=== PATIENT | male | born 1930 ===

== ENCOUNTER 2017-02-22 08:54 | Inpatient (IN) | payer MEDICARE, OTHER ==
[2017-02-22 10:58] LABS: BASO % 0.2 % (0.0-2.0); EOS % 0.1 % (0.0-4.0); HEMATOCRIT 36.2 % (35.0-51.0); LYMPH # 0.8 K/uL (1.0-4.3); LYMPH % 6.3 % (20.0-40.0); MEAN CELL VOLUME 97.2 fL (80.0-94.0); MEAN CORPUSCULAR HGB CONC 32.9 g/dL (33.0-37.0); MEAN PLATELET VOLUME 9.2 fL (7.2-11.7); MONO # 1.4 K/uL (0.0-0.8); MONO % 11.7 % (0.0-10.0); PLATELET COUNT 240 K/uL (130-400); RED CELL DISTRIBUTION WIDTH 15.7 % (11.5-14.5); WHITE BLOOD COUNT 12.1 K/uL (4.8-10.8)
[2017-02-22 11:06] LABS: RBC URINE 50 /hpf (0-3); URINE BACTERIA RARE (<OCC); URINE BILIRUBIN NEGATIVE (NEGATIVE); URINE BLOOD 3+ (NEGATIVE); URINE COLOR Amber (YELLOW); URINE GLUCOSE (UA) NORMAL (Normal); URINE KETONE NEGATIVE (NEGATIVE); URINE LEUKOCYTE ESTERASE NEG Leu/uL (Negative); URINE PROTEIN 2+ mg/dL (NEGATIVE); URINE UROBILINOGEN NORMAL mg/dL (0.2-1.0); WBC URINE 14 /hpf (0-5)
[2017-02-22 11:07] LABS: POTASSIUM 3.5 mmol/L (3.6-5.2)
[2017-02-22 11:09] LABS: BILIRUBIN,TOTAL 1.1 mg/dL (0.2-1.3)
[2017-02-22 11:10] LABS: CALCIUM 8.1 mg/dl (8.6-10.4); TOTAL PROTEIN 7.4 g/dL (6.3-8.3)
[2017-02-22 11:18] LABS: NEUTROPHIL 85 % (50-75); TOTAL CELLS COUNTED 100
--- NOTE | 2017-02-22 11:44 | C.PDOC ---
History Of Present Illness 86 year old male presents to the ED with complaints of urine retention since yesterday. Patient states he has urinary problems and is taking something prescribed by his doctor. He was seen by his Urologist recently but does not remember his name. Denies abdominal pain, fever, chills, or any other complaints at this time. Chief Complaint (Nursing): Male Genitourinary History Per: Patient History/Exam Limitations: no limitations Onset/Duration Of Symptoms: Days Current Symptoms Are (Timing): Still Present Severity: Mild Associated Symptoms: Urinary Symptoms. denies: Fever, Chills, Vomiting, Diarrhea Past Medical History Reviewed: Historical Data, Nursing Documentation, Vital Signs Vital Signs: Last Vital Signs Temp 98.3 F 02/22/17 13:00 Pulse 57 L 02/22/17 13:00 Resp 20 02/22/17 13:00 BP 155/73 H 02/22/17 13:00 Pulse Ox 95 02/22/17 13:00 - Medical History PMH: HTN Surgical History: Cholecystectomy, Coronary Stent Family History: States: Unknown Family Hx - Social History Hx Tobacco Use: Yes Hx Alcohol Use: No Hx Substance Use: No - Immunization History Hx Tetanus Toxoid Vaccination: No Hx Influenza Vaccination: Yes Hx Pneumococcal Vaccination: No Review Of Systems Except As Marked, All Systems Reviewed And Found Negative. Constitutional: Negative for: Fever, Chills Gastrointestinal: Negative for: Vomiting, Abdominal Pain Genitourinary: Positive for: Other (+Urine retention) Musculoskeletal: Negative for: Back Pain Neurological: Negative for: Weakness, Numbness Physical Exam - Physical Exam Appears: Non-toxic, Other (+Uncomfortable) Skin: Normal Color, Warm, Dry Head: Atraumatic, Normacephalic Eye(s): bilateral: Normal Inspection Oral Mucosa: Moist Chest: Symmetrical, No Deformity Cardiovascular: Rhythm Regular, No Murmur Respiratory: Normal Breath Sounds, No Accessory Muscle Use Gastrointestinal/Abdominal: Soft, No Tenderness, Distention (+Distended bladder) , No Guarding, No Rebound Extremity: Normal ROM, No Deformity Neurological/Psych: Oriented x3, Normal Speech, Normal Cognition ED Course And Treatment - Laboratory Results Result Diagrams: 02/22/17 10:51 02/22/17 10:51 O2 Sat by Pulse Oximetry: 99 (Room air) Pulse Ox Interpretation: Normal Progress Note: Blood work and Urinalysis ordered and reviewed. IV fluids given. Fuller placed with 550 cc of urine output. Patient notes his symptoms improved after. 11:35- Case discussed with Dr. Buenrostro who wants to admit the patient for obstructive uropathy. Patient's creatinine has increased compared to his previous visit with Dr. Buenrostro and he is requesting to hydrate the patient. 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 - Scribe Statement The provider has reviewed the documentation as recorded by the Scribe Jing Soares. All medical record entries made by the Scribe were at my direction and personally dictated by me. I have reviewed the chart and agree that the record accurately reflects my personal performance of the history, physical exam, medical decision making, and the department course for this patient. I have also personally directed, reviewed, and agree with the discharge instructions and disposition. Decision To Admit - Pt Status Changed To: Hospital Disposition Of: Observation - . Bed Request Type: Regular Admitting Physician: Jeanne Buenrostro Patient Diagnosis: Injury of kidney
[2017-02-22] MEDS ORDERED: Sodium Chloride 0.9% 1,000 ML IV ONE (11:45)
[2017-02-22] MEDS ORDERED: Sodium Chloride 0.9% 1,000 ML ONE (11:56)
[2017-02-22] MEDS: Sodium Chloride 0.9% 1,000 ML IV SCH (14:30)
[2017-02-22] MEDS ORDERED: Potassium Chloride 20 mEq ER Tab PO STA (16:12)
--- NOTE | 2017-02-23 01:30 | PCM.URO ---
Urology Progress Note - Objective Intake & Output: Intake & Output 02/22/17 02/22/17 02/23/17 06:59 18:59 06:59 Intake Total 475 Output Total 600 600 Balance -600 -125 Intake: Intake, IV Amount 225 Right Forearm 225 Oral 250 Output: Urine 600 600 Urethral (Fuller) 600 Other: Voiding Method Indwelling Catheter Vital Signs: Vital Signs - 24 hr 02/22/17 02/22/17 02/22/17 11:57 13:00 15:02 Temperature 98 F 98.3 F 97.6 F Pulse Rate 56 L 57 L 56 L Respiratory 18 20 19 Rate Blood Pressure 151/96 H 155/73 H 152/65 H O2 Sat by Pulse 97 95 94 L Oximetry 02/22/17 02/22/17 02/22/17 16:27 17:13 17:42 Temperature Pulse Rate Respiratory 20 Rate Blood Pressure 154/90 H O2 Sat by Pulse 99 Oximetry 02/22/17 02/22/17 02/22/17 19:46 21:15 23:00 Temperature 98.3 F 98.9 F Pulse Rate 56 L 59 L 59 L Respiratory 20 20 Rate Blood Pressure 169/73 H 129/58 L O2 Sat by Pulse 94 L 95 Oximetry
[2017-02-23] MEDS: Sodium Chloride 0.9% 1,000 ML IV SCH ×2 (03:30→17:40)
[2017-02-23 08:13] LABS: BASO % 0.4 % (0.0-2.0); EOS # 0.1 K/uL (0.0-0.7); EOS % 0.9 % (0.0-4.0); HEMATOCRIT 35.2 % (35.0-51.0); LYMPH # 1.1 K/uL (1.0-4.3); LYMPH % 10.7 % (20.0-40.0); MEAN CELL VOLUME 97.8 fL (80.0-94.0); MEAN CORPUSCULAR HEMOGLOBIN 32.2 pg (27.0-31.0); MEAN CORPUSCULAR HGB CONC 32.9 g/dL (33.0-37.0); MEAN PLATELET VOLUME 9.9 fL (7.2-11.7); MONO # 1.3 K/uL (0.0-0.8); MONO % 12.9 % (0.0-10.0); RED CELL DISTRIBUTION WIDTH 15.7 % (11.5-14.5); WHITE BLOOD COUNT 10.4 K/uL (4.8-10.8)
[2017-02-23 08:19] LABS: CHLORIDE 104 mmol/L (98-107); POTASSIUM 3.8 mmol/L (3.6-5.2); SODIUM 141 mmol/L (132-148)
[2017-02-23 08:22] LABS: CARBON DIOXIDE 26 mmol/L (22-30); GFR AFRICAN-AMERICAN > 60
[2017-02-23 08:23] LABS: BLOOD UREA NITROGEN 18 mg/dL (9-20); CALCIUM 7.9 mg/dl (8.6-10.4); GLUCOSE,RANDOM 85 mg/dL (75-110)
--- NOTE | 2017-02-23 10:20 | US ---
PROCEDURE: Ultrasound of the Kidneys HISTORY: retention COMPARISON: Comparison is made to the previous CT of the abdomen dated 02/24/2014 TECHNIQUE: Sonogram of the kidneys. FINDINGS: RIGHT KIDNEY: Measures: 10.1 x 4.5 x 4.7 cm. Normal in size, contour and echogenicity. No stone, solid mass lesion or hydronephrosis visualized. LEFT KIDNEY: Measures: 9.7 x 5.5 x 4.1 cm. Normal in size, contour and echogenicity. Minimal fullness seen in the left kidney collecting system. No stone, solid mass lesion or hydronephrosis visualized. OTHER FINDINGS: None. IMPRESSION: Mild fullness in the collecting system of the left kidney noted. Otherwise unremarkable ultrasound examination of the kidneys.
--- NOTE | 2017-02-23 20:43 | PN ---
DATE: 02/23/2017 SUBJECTIVE: The patient is seen today 02/23/2017. He is not in any cardiopulmonary distress. The p atient was complaining of lower back pain. PHYSICAL EXAMINATION: VITAL SIGNS: Blood pressure 149/78, temperature 99.0, respiratory rate 20, and pulse is 56. HEENT: Pupils equal, reactive to light. Normal-appearing mucosa of the conjunctivae, oropharyngeal, and nasal membrane mucosa. NECK: Supple, no JVD, no carotid bruit, no lymph node, no thyromegaly. CHEST AND LUNGS: Bilateral symmetrical expansion. Good air exchange. No rales, no rhonchi. CARDIOVASCULAR: PMI not localized. S1, S2. No additional sounds. ABDOMEN: Normoactive bowel sounds, no tenderness, no organomegaly, no masses. EXTREMITIES: No cyanosis, no clubbing, no edema. CENTRAL NERVOUS SYSTEM: Alert, awake, oriented x 2. No neurological deficits could be appreciated. ASSESSMENT: 1. Obstructive uropathy with acute kidney injury. 2. Acute urinary retention. 3. Hypertension. 4. Degenerative spine disease. PLAN: 1. Pain management for the back. 2. Continue the Fuller catheter. Follow up urology recommendations. 3. Continue IV fluids. [facility] Sofía Buenrostro MD cc: 167 TT: 02/23/2017 20:42:17 Confirmation # [id number] Dictation # [id number]
--- NOTE | 2017-02-23 20:51 | HP ---
The patient is an 86-year-old male with history of multiple medical problems, presented [facility] with lower abdominal pain and inability to urinate for 2 days. The patient had a Fuller catheter placed and drained more than 600 mL. The patient was found also to have elevated serum cre atinine to 1.6. Baseline serum creatinine was 1.1 in the last blood tests done on 09/2016. The harshil ent denied to have any similar symptoms before. The patient was noticed to have significantly elevated PSA, and he was being followed by Dr. Doyle , a urologist. The patient refused any cystoscopy or biopsy of the prostate that was offered by Dr. Doyle before. There are no symptoms of fever or other review of systems is negative. ALLERGY: No known allergy. HOME MEDICATIONS: Metoprolol 25 mg twice a day, Flexeril 5 mg daily, Proscar 5 mg daily, Diovan 160 mg daily, Crestor 5 mg daily, Plavix 75 mg daily, Pepcid 20 mg daily, Norvasc 10 mg daily. PAST MEDICAL HISTORY: Includes hypertension, degenerative spine disease, chronic obstructive pulmona ry disease status post endovascular procedure for ascending aortic aneurysm. SOCIAL HISTORY: Positive smoker more than 50 years. No ETOH or substance abuse history. FAMILY HISTORY: Not contributory. PHYSICAL EXAMINATION: The patient was in bed, comfortable, not in any cardiopulmonary distress after replacing the Fuller ca theter. Blood pressure was 154/90, temperature 98.3, respiratory rate 20, and pulse 56. HEENT: Pupils equal, reactive to light. Normal-appearing mucosa of the conjunctivae, oropharyngeal, and nasal membrane mucosa. NECK: Supple, no JVD, no carotid bruit, no lymph node, no thyromegaly. CHEST AND LUNGS: Bilateral symmetrical expansion, good air exchange. No rales, no rhonchi. CARDIOVASCULAR SYSTEM: PMI not localized. S1, S2. No additional sounds. ABDOMEN: Normoactive bowel sounds, no tenderness, no organomegaly, no masses. EXTREMITIES: No cyanosis, no clubbing, no edema. CENTRAL NERVOUS SYSTEM: Alert, awake, oriented x 2. No neurological deficits could be appreciated. ASSESSMENT: 1. Urinary retention. 2. Obstructive uropathy. 3. Acute kidney injury. 4. Hypertension. 5. Degenerative spine disease. PLAN: Continue IV fluid and urology consult, and will follow recommendations, and resume the patient 's home medications. Alex Sofía Buenrostro MD cc: 167 TT: 02/23/2017 20:50:38 jn
[2017-02-24] MEDS: Sodium Chloride 0.9% 1,000 ML IV SCH ×2 (06:00→20:00)
[2017-02-24] MEDS ORDERED: Pneumococcal 23-Valent Vaccine IM ONE (10:00)
[2017-02-25] MEDS: Sodium Chloride 0.9% 1,000 ML IV SCH (11:04)
--- NOTE | 2017-02-25 18:48 | PN ---
DATE: 02/25/2017 SUBJECTIVE: The patient is seen today, 02/25/2017. He is having urinary catheter and Dr. Bridget reyes heduled him for cystoscopy. PHYSICAL EXAMINATION: VITAL SIGNS: Blood pressure is 146/84, temperature 98.7, respiratory rate 20, and pulse is 78. HEENT: Pupils equal, reactive to light. Normal-appearing mucosa of the conjunctivae, oropharyngeal and nasal membrane mucosa. NECK: Supple, no JVD, no carotid bruit, no lymph node, no thyromegaly. CHEST AND LUNGS: Bilateral symmetrical expansion, good air exchange, no rales, no rhonchi. CARDIOVASCULAR: PMI not localized. S1, S2. No additional sounds. ABDOMEN: Normoactive bowel sounds, no tenderness, no organomegaly, no masses. EXTREMITIES: No cyanosis, no clubbing, no edema. CENTRAL NERVOUS SYSTEM: Alert, awake, oriented x 2. No neurological deficits could be appreciated. ASSESSMENT: 1. Urinary retention with enlarged prostate, possible and to rule out cancer of prostate. 2. Hyper tension. 3. Degenerative spine disease. PLAN: We will do a chest x-ray and will do a cardiology consultation for cardiac clearance prior to procedure. Discussed the patient's condition with this patient's son, Asad, at the bedside and he is agreeable for the plans. Explained also to the patient who expressed understanding of the curren t plan of treatment. Alex Sofía Buenrostro MD cc: 167 TT: 02/25/2017 18:48:50 Confirmation # [id number] Dictation # [id number] mn
--- NOTE | 2017-02-25 20:46 | CP.PCM.CON ---
History of Present Illness - History of Present Illness History of Present Illness: Reason For Consultation: Pre Op cardiac risk assessment HPI: (Patient is a poor Historian. The History obtained from Son) 86 Male with Hx of CAD coronary stent, AAA s/p Endograft, HTN, Hyperlipidemia, COPD and active tobacco use admitted for cystoscopy. Patient activity limited to elicit symptoms Patient did not have any cardiac work up done recently. Recommend cardiovascular work up for the risk assessment unless surgery is an emergency. Stress test, ECHO and Carotid duplex ordered. Recommend wait for the results Thank you Past Patient History - Infectious Disease Hx of Infectious Diseases: None - Past Medical History & Family History Past Medical History?: Yes - Past Social History Smoking Status: Current Some Days Smoker - CARDIAC Hx Cardiac Disorders: Yes (CAD Coronary stent) Hx Hypertension: Yes - NEUROLOGICAL HX Cerebrovascular Accident: Yes - HEENT Other/Comment: WEAR EYEGLASSES FOR READING - RENAL Hx Chronic Kidney Disease: No - ENDOCRINE/METABOLIC Hx Endocrine Disorders: No - HEMATOLOGICAL/ONCOLOGICAL Hx Blood Disorders: No - INTEGUMENTARY Hx Dermatological Problems: No - MUSCULOSKELETAL/RHEUMATOLOGICAL Hx Back Pain: Yes Hx Falls: No Hx Unsteady Gait: Yes - GASTROINTESTINAL Hx Gastrointestinal Disorders: No - GENITOURINARY/GYNECOLOGICAL Hx Genitourinary Disorders: No - PSYCHIATRIC Hx Substance Use: No - SURGICAL HISTORY Hx Cholecystectomy: Yes Hx Coronary Stent: Yes - ANESTHESIA Hx Anesthesia: No Meds Allergies/Adverse Reactions: Allergies Allergy/AdvReac Type Severity Reaction Status Date / Time No Known Allergies Allergy Verified 02/22/17 09:05 - Medications Medications: Current Medications Acetaminophen (Tylenol 325mg Tab) 650 mg PO Q6 PRN PRN Reason: Pain, Mild (1-3) Last Admin: 02/23/17 20:23 Dose: 650 mg Amlodipine Besylate (Norvasc) 10 mg PO DAILY [facility] Last Admin: 02/25/17 10:50 Dose: 10 mg Docusate Sodium (Colace) 200 mg PO HS [facility] Last Admin: 02/24/17 21:27 Dose: 200 mg Famotidine (Pepcid) 20 mg PO DAILY [facility] Last Admin: 02/25/17 11:05 Dose: Not Given Finasteride (Proscar) 5 mg PO DAILY [facility] Last Admin: 02/25/17 11:05 Dose: Not Given Losartan Potassium (Cozaar) 50 mg PO DAILY [facility] Last Admin: 02/25/17 10:50 Dose: 50 mg Metoprolol Tartrate (Lopressor) 25 mg PO BID [facility] Last Admin: 02/25/17 18:00 Dose: 25 mg Rosuvastatin Calcium (Crestor) 5 mg PO HS [facility] Last Admin: 02/24/17 21:27 Dose: 5 mg Results - Vital Signs Recent Vital Signs: Last Vital Signs Temp 98.7 F 02/25/17 14:00 Pulse 125 H 02/25/17 14:00 Resp 20 02/25/17 14:00 BP 146/84 02/25/17 18:00 Pulse Ox 95 02/25/17 14:00 - Labs Result Diagrams: 02/23/17 08:03 02/23/17 08:03
[2017-02-25 20:48] LABS: ESTIM. PROBABILITY CANCER >50 Percent (()); TOTAL PSA 119.8 ng/mL (<=4.0)
[2017-02-26 07:24] LABS: BASO % 0.4 % (0.0-2.0); EOS # 0.1 K/uL (0.0-0.7); EOS % 1.5 % (0.0-4.0); HEMATOCRIT 33.5 % (35.0-51.0); LYMPH # 1.1 K/uL (1.0-4.3); LYMPH % 13.4 % (20.0-40.0); MEAN CELL VOLUME 97.9 fL (80.0-94.0); MEAN CORPUSCULAR HEMOGLOBIN 32.3 pg (27.0-31.0); MEAN PLATELET VOLUME 10.1 fL (7.2-11.7); MONO # 1.3 K/uL (0.0-0.8); WHITE BLOOD COUNT 8.2 K/uL (4.8-10.8)
[2017-02-26 07:25] LABS: CHLORIDE 102 mmol/L (98-107); POTASSIUM 3.2 mmol/L (3.6-5.2); SODIUM 142 mmol/L (132-148)
[2017-02-26 07:28] LABS: BLOOD UREA NITROGEN 15 mg/dL (9-20); CARBON DIOXIDE 26 mmol/L (22-30); GFR AFRICAN-AMERICAN > 60; GLUCOSE,RANDOM 88 mg/dL (75-110)
[2017-02-26 07:29] LABS: CALCIUM 7.5 mg/dl (8.6-10.4)
--- NOTE | 2017-02-26 09:22 | RAD ---
HISTORY: pre-op COMPARISON: Comparison is made to the previous CT dated 01/26/2015 TECHNIQUE: Chest PA and lateral FINDINGS: LUNGS: No evidence of focal infiltrate or consolidation in the lungs. PLEURA: No significant pleural effusion identified. No pneumothorax apparent. CARDIOVASCULAR: [id number] cardiomegaly is noted. There is endovascular stent at the left lower mediastinal overlying the cardiac silhouette and extending to the epigastric region consistent with descending thoracic aorta stent due to aneurysm. OSSEOUS STRUCTURES: No significant abnormalities. VISUALIZED UPPER ABDOMEN: Normal. OTHER FINDINGS: None. IMPRESSION: No evidence of acute pulmonary disease. Descending thoracic aorta aneurysm and intra vascular stent.
[2017-02-26] MEDS ORDERED: Potassium Chloride 20 mEq 100 ML IVPB ONE (13:30)
--- NOTE | 2017-02-26 16:01 | VASCLAB ---
PROCEDURE: HISTORY: Pre Op COMPARISON: None available. TECHNIQUE: Grayscale and duplex Doppler evaluation of the cervical carotid and vertebral arteries were performed. The common carotid, carotid bifurcations and cervical Internal Carotid Artery (ICA) and proximal External Carotid Artery (ECA) were evaluated. The vertebral arteries were evaluated for gross patency and flow direction. Report prepared by Yannick Figueroa, BS, RVT FINDINGS: RIGHT CAROTID ARTERIES: 1. Common Carotid Artery: No significant focal plaque formation of the right common carotid artery. Maximum Peak Systolic velocity: 56 cm/sec: End-diastolic velocity 10 cm/sec. 2. Carotid Bifurcation: plaque formation. Maximum Peak Systolic velocity: 54 cm/sec: End-diastolic velocity 9 cm/sec. 3. Internal Carotid Artery: Plaque description: 3.1. Proximal Segment: Peak systolic velocity 57 cm/sec: End-diastolic velocity 12 cm/sec - % stenosis 0-15% 3.2. Middle Segment: Peak systolic velocity 87 cm/sec: End-diastolic velocity 18 cm/sec - % stenosis 0-15% 3.3. Distal Segment: Peak systolic velocity 59 cm/sec: End-diastolic velocity 16 cm/sec - % stenosis 0-15% 4. External Carotid Artery: No significant focal plaque formation. Peak systolic velocity 134 cm/sec 5. ICA/CCA Ratio: 139 LEFT CAROTID ARTERIES: 1. Common Carotid Artery: No significant focal plaque formation of the left common carotid artery. Maximum Peak Systolic velocity: 68 cm/sec: End-diastolic velocity 7 cm/sec. 2. Carotid Bifurcation: Calcific plaque formation. Maximum Peak Systolic velocity: 53 cm/sec: End-diastolic velocity 11 cm/sec. 3. Internal Carotid Artery: Plaque description: 3.1. Proximal Segment: Peak systolic velocity 111 cm/sec: End-diastolic velocity 24 cm/sec - % stenosis 0-15% 3.2. Middle Segment: Peak systolic velocity 93 cm/sec: End-diastolic velocity 11 cm/sec - % stenosis 0-15% 3.3. Distal Segment: Peak systolic velocity 64 cm/sec: End-diastolic velocity 7 cm/sec - % stenosis 0-15% 4. External Carotid Artery: No significant focal plaque formation. Peak systolic velocity 106 cm/sec 5. ICA/CCA Ratio: 1.6 VERTEBRAL ARTERIES: 1. Right Vertebral Artery: The right vertebral artery flow direction is antegrade. 2. Left Vertebral Artery: The left vertebral artery flow direction is antegrade. OTHER FINDINGS: 1. Right Brachial Blood pressure: 156 mmHg. 2. Left Brachial Blood pressure: 150 mmHg. IMPRESSION: RIGHT: Duplex scan does not suggest hemodynamically significant stenosis of the right extracranial carotid arteries. LEFT: Duplex scan does not suggest hemodynamically significant stenosis of the left extracranial carotid arteries.
--- NOTE | 2017-02-26 16:31 | PCM.URO ---
Urology Progress Note - Objective Lab Results Last 24 Hours: Laboratory Results - last 24 hr 02/26/17 07:05 WBC 8.2 RBC 3.42 L Hgb 11.0 L Hct 33.5 L MCV 97.9 H MCH 32.3 H MCHC 33.0 RDW 15.0 H Plt Count 209 MPV 10.1 Neut % (Auto) 68.7 Lymph % (Auto) 13.4 L [place] % (Auto) 16.0 H Eos % (Auto) 1.5 Baso % (Auto) 0.4 Neut # 5.7 Lymph # 1.1 [place] # 1.3 H Eos # 0.1 Baso # 0.0 Sodium 142 Potassium 3.2 L Chloride 102 Carbon Dioxide 26 Anion Gap 17 BUN 15 Creatinine 1.0 Est GFR ( Amer) > 60 Est GFR (Non-Af Amer) > 60 Random Glucose 88 Calcium 7.5 L Intake & Output: Intake & Output 02/25/17 02/26/17 02/26/17 18:59 06:59 18:59 Intake Total 600 800 Output Total 1400 500 Balance -800 300 Intake: Intake, IV Amount 600 600 Right Forearm 600 600 Oral 200 Output: Urine 1400 500 Urethral (Fuller) 1400 500 Other: # Bowel Movements 0 Vital Signs: Vital Signs - 24 hr 02/25/17 02/25/17 02/25/17 18:00 23:00 23:30 Temperature 98.8 F Pulse Rate 81 81 Respiratory 18 Rate Blood Pressure 146/84 136/78 O2 Sat by Pulse 97 Oximetry 02/26/17 02/26/17 06:00 07:31 Temperature 98.2 F 98.6 F Pulse Rate 68 Respiratory 20 Rate Blood Pressure 154/69 H O2 Sat by Pulse 98 Oximetry
--- NOTE | 2017-02-26 17:35 | CARD ---
APPROVED REPORT Protocol: PHARMACOLOGICAL Test Type: LEXISCAN Test Indications: CP Target HR: 135 bpm Resting ECG: normal Resting Heart Rate: 57 bpm Resting Blood Pressure: 128/80mmHg submaximum (85%): 115 bpm TEST SUMMARY [id number]:02..1.055/.0. PREINFSNHYPERV.01:130.00.01.115223/80.0. INFUSIONDOSE 100:320.00.01.718576/80.0. IRNCKMLWF69:120.00.01.073/.0. PROCEDURE Pharmacologic stress testing was performed using 0.4mg per 5ml of regadenoson given intravenously over 7-10 seconds. POST EXERCISE Reason for Termination: Lexiscan protocol completed Target HR: No Max HR: 57 bpm 57% of Maximum Predicted HR: 135 bpm Exercise duration: 00:31 min:sec, 0 Stage Exercise capacity: 1.0METs Max Blood Pressure: 128/80mmHg Blood Pressure response to exercise: normal resting BP - appropriate response Heart Rate response to exercise: appropriate Chest Pain: No, none Angina index: 0 Arrhythmia: No, none ST Change: No, none Deviation: 0 mm INTERPRETATION Stress EKG Conclusion: Nuclear report to follow EXAM: Myocardial Perfusion REST/STRESS Imaging Protocol The imaging protocol used to acquire images was Rest Tc-99m/stress Tc-99m 1 day Rest Spect myocardial perfusion imaging was performed in supine position 45 minutes following the injection of 13.1 mCi of Tc-99 Myoview. Gated Stress Spect was performed 45 minutes after intravenous 30.4 mCi Tc-99 Myoview injection. The images were gated to evaluate regional wall motion and calculate ventricular ejection fraction.Images were reconstructed using backfilter projection method in short horizontal and verticle long axis. Spect slices were generated. RESTING DATA SYB055.65daPB2.80L/min ESV50.00mlMyocardial Mcaj336.00g Av. Heart Rate59.00bpm EF62.00% STRESS DATA MPC081.78nlBP6.20L/min ESV49.00mlMyocardial Jkuh373.00g EF62.00% Regional WT score at stress:0.00 Regional WM score at stress:0.00 Summed WT score at stress:0.00 Av. Heart Rate64.00bpmSummed WM score at stress:7.00 LV Perf. Quant 17 Seg. SSS0.00 17 Seg. SRS0.00 17 Seg. SDS0.00 Stress Defect Extent (% LAD)0.00Rest Defect Extent (% LAD)0.00Rev. Defect Extent (% LAD)0.00 Stress Defect Extent (% LCX)0.00Rest Defect Extent (% LCX)0.00Rev. Defect Extent (% LCX)0.00 Stress Defect Extent (% RCA)0.00Rest Defect Extent (% RCA)0.00Rev. Defect Extent (% RCA)0.00 Stress Defect Extent (% TOMA)0.00Rest Defect Extent (% TOMA)0.00Rev. Defect Extent (% TOMA)0.00 Other Information Quality:Good IMPRESSION Normal Myocardial Perfusion exercise stress study Left Ventricle LV Size/Shape: The left ventricle is normal size. LV Function:Left ventricle systolic function is normal. The Ejection Fraction is 60-65%. Metabolism/Perfusion There are no perfusion/metabolism defects. Conclusion 1. Normal Lexiscan nuclear stress test. Normal EF.
--- NOTE | 2017-02-26 17:46 | CP.PCM.PN ---
Subjective - Date & Time of Evaluation Date of Evaluation: 02/26/17 Time of Evaluation: 17:42 - Subjective Subjective: Patient seen and evaluated Stable vital signs Stress Test: Normal ECHO: Normal EF Carotids: Mild disease Patient denies cardiac symptoms Basing on over all tests and clinical story this patient assessed as low to intermediate risk for cardiac events for urological procedures under general anaesthesia. If benefit outweighs the risk recommend to proceed with the surgery Will follow Thank you Objective - Vital Signs/Intake and Output Vital Signs (last 24 hours): Temp Pulse Resp BP Pulse Ox 98.6 F 68 20 154/69 H 98 02/26/17 07:31 02/26/17 07:31 02/26/17 07:31 02/26/17 07:31 02/26/17 07:31 Intake and Output: 02/26/17 02/26/17 06:59 18:59 Intake Total 800 600 Output Total 500 700 Balance 300 -100 - Medications Medications: Current Medications Acetaminophen (Tylenol 325mg Tab) 650 mg PO Q6 PRN PRN Reason: Pain, Mild (1-3) Last Admin: 02/23/17 20:23 Dose: 650 mg Amlodipine Besylate (Norvasc) 10 mg PO DAILY [facility] Last Admin: 02/26/17 10:51 Dose: Not Given Docusate Sodium (Colace) 200 mg PO [facility] Last Admin: 02/25/17 21:18 Dose: 200 mg Famotidine (Pepcid) 20 mg PO DAILY [facility] Last Admin: 02/26/17 10:50 Dose: Not Given Finasteride (Proscar) 5 mg PO DAILY [facility] Last Admin: 02/26/17 10:49 Dose: Not Given Losartan Potassium (Cozaar) 50 mg PO DAILY [facility] Last Admin: 02/26/17 10:50 Dose: Not Given Metoprolol Tartrate (Lopressor) 25 mg PO BID [facility] Last Admin: 02/26/17 10:50 Dose: Not Given Rosuvastatin Calcium (Crestor) 5 mg PO HS [facility] Last Admin: 02/25/17 21:18 Dose: 5 mg - Labs Labs: 02/26/17 07:05 02/26/17 07:05
--- NOTE | 2017-02-26 22:09 | PN ---
DATE: 02/26/2017 The patient is seen today, 02/26/2017,. Blood pressure of 154/68, temperature 98.6, respiratory rate 20, and pulse 68. HEENT: Pupils equal, reactive to light. Normal-appearing mucosa of the conjunctivae, oropharyngeal, and nasal membrane mucosa. NECK: Supple, no JVD, no carotid bruit, no lymph node, no thyromegaly. CHEST AND LUNGS: Bilateral symmetrical expansion , no rales , no ronchi. CARDIOVASCULAR: PMI not localized, S1, S2. No additional sounds. ABDOMEN: Normoactive bowel sounds, no tenderness, no organomegaly, no masses. EXTREMITIES: No cyanosis, no clubbing, no edema. CENTRAL NERVOUS SYSTEM: Alert, awake, oriented x 2. No neurological deficits could be appreciated. The patient had a cardiology evaluation done by Dr. Garcia, and was cleared for cystoscopy. ASSESSMENT: 1. Urinary retention with elevated PSA to 119. 2. Obstructive uropathy which has resolved, and creatinine went down from 1.6 to 1.0. 3. Hypokalemia, with potassium 3.2. PLAN: We will supplement potassium. Continue current management, as per urology, and follow their recommendations. Alex Sofía Buenrostro MD cc: 167 TT: 02/26/2017 22:08:40 Confirmation # [id number] Dictation # [id number] MTDD
[2017-02-27 06:42] LABS: BASO % 0.1 % (0.0-2.0); EOS # 0.2 K/uL (0.0-0.7); EOS % 2.7 % (0.0-4.0); HEMATOCRIT 35.8 % (35.0-51.0); MEAN CORPUSCULAR HEMOGLOBIN 32.2 pg (27.0-31.0); MEAN CORPUSCULAR HGB CONC 33.2 g/dL (33.0-37.0); MEAN PLATELET VOLUME 9.9 fL (7.2-11.7); MONO # 1.2 K/uL (0.0-0.8); MONO % 14.7 % (0.0-10.0); RED CELL DISTRIBUTION WIDTH 14.7 % (11.5-14.5); WHITE BLOOD COUNT 8.4 K/uL (4.8-10.8)
[2017-02-27 06:45] LABS: INR 1.2
[2017-02-27 06:49] LABS: CHLORIDE 99 mmol/L (98-107); POTASSIUM 3.4 mmol/L (3.6-5.2); SODIUM 143 mmol/L (132-148)
[2017-02-27 06:52] LABS: BLOOD UREA NITROGEN 12 mg/dL (9-20); CALCIUM 7.6 mg/dl (8.6-10.4); CARBON DIOXIDE 26 mmol/L (22-30); GFR AFRICAN-AMERICAN > 60; GLUCOSE,RANDOM 91 mg/dL (75-110)
[2017-02-27] MEDS ORDERED: Potassium Chloride 20 mEq ER Tab PO ONE (18:00)
--- NOTE | 2017-02-27 19:17 | CARD ---
APPROVED REPORT EXAM: Two-dimensional and M-mode echocardiogram with Doppler and color Doppler. INDICATION CVA/TIA Dizziness and Vertigo Pre-Op Cardiac Disease: CAD M-Mode DIMENSIONS RVDd1.95 (2.1-3.2cm)Left Atrium (MM)3.61 (2.5-4.0cm) IVSd1.29 (0.7-1.1cm)Aortic Root3.91 (2.2-3.7cm) LVDd5.24 (4.0-5.6cm)Aortic Cusp Exc.1.48 (1.5-2.0cm) PWd1.33 (0.7-1.1cm)FS (%) 35 % LVDs3.39 (2.0-3.8cm)LVEF (%)64 (>50%) Aortic Valve AoV Peak Pfcbrqnk631.9cm/Redd Peak GR.11mmHgAI P 1/2 [id number] Mitral Valve MV E Wlvhovxi879.1cm/sMV A Uwlpjdso70.6cm/sE/A ratio1.2 TDI E/Lateral E'0.0E/Medial E'0.0 Tricuspid Valve TR Peak Dirwreky339tk/sTR Peak Gr.84xfGiDUKN97fbQp LEFT VENTRICLE The left ventricle is normal size. There is mild concentric left ventricular hypertrophy. Left ventricle systolic function is normal. The Ejection Fraction is 60-65%. There is normal LV segmental wall motion. The left ventricular diastolic function is normal. RIGHT VENTRICLE The right ventricle is normal size. There is normal right ventricular wall thickness. The right ventricular systolic function is normal. ATRIA The left atrium size is normal. The right atrium size is normal. The interatrial septum is intact with no evidence for an atrial septal defect. AORTIC VALVE The aortic valve is normal in structure. There is mild aortic regurgitation. There is no aortic valvular stenosis. There is no aortic valvular vegetation. MITRAL VALVE The mitral valve is normal in structure. There is no evidence of mitral valve prolapse. There is no mitral valve stenosis. Mitral regurgitation is mild. TRICUSPID VALVE The tricuspid valve is normal in structure. There is trace tricuspid regurgitation. Right ventricular systolic pressure is estimated at less than 30 mmHg. There is no pulmonary hypertension. PULMONIC VALVE The pulmonic valve is not well visualized. There is no pulmonic valvular regurgitation. GREAT VESSELS The aortic root is normal in size. PERICARDIAL EFFUSION There is no significant pericardial effusion.
--- NOTE | 2017-02-28 02:27 | PN ---
DATE: 02/27/2017 SUBJECTIVE: The patient is seen today, 02/27/2017. He is not in any cardiopulmonary distress. The patient has urinary retention and still has Fuller catheter. PHYSICAL EXAMINATION: VITAL SIGNS: Blood pressure 132/64, temperature 98.4, respiratory rate 20, and pulse 61. HEENT: Pupils equal, reactive to light. Normal-appearing mucosa of the conjunctivae, oropharyngeal and nasal membrane mucosa. NECK: Supple, no JVD, no carotid bruit, no lymph node, no thyromegaly. CHEST AND LUNGS: Bilateral symmetrical expansion. Good air exchange. No rales, rhonchi. CARDIOVASCULAR: S1, S2. No additional sounds. ABDOMEN: Normoactive bowel sounds, no tenderness, no organomegaly, no masses. EXTREMITIES: No cyanosis, no clubbing, no edema. CENTRAL NERVOUS SYSTEM: Alert, awake, oriented x 2. No neurological deficits could be appreciated. ASSESSMENT: 1. Urinary retention with increased of TSA to 130. 2. Hypertension. PLAN: The patient is seen for TURP by Dr. Gill. The patient was cleared by cardiology. We will continue current medications including beta paola and antihypertensive medications. Jeanne Buenrostro MD cc: 167 TT: 02/28/2017 02:27:15 Confirmation # [id number] Dictation # [id number] mn
[2017-02-28 06:50] LABS: CHLORIDE 103 mmol/L (98-107); POTASSIUM 3.7 mmol/L (3.6-5.2); SODIUM 141 mmol/L (132-148)
[2017-02-28 06:53] LABS: BLOOD UREA NITROGEN 15 mg/dL (9-20); CARBON DIOXIDE 25 mmol/L (22-30); GFR AFRICAN-AMERICAN > 60
[2017-02-28 06:54] LABS: GLUCOSE,RANDOM 90 mg/dL (75-110)
[2017-02-28] MEDS: guaiFENesin 100 mg/5 ml Syrup UD PO PRN (09:47)
[2017-02-28] MEDS ORDERED: Propofol 10 mg/ml Inj (20 ML) ONE (11:59)
[2017-02-28] MEDS ORDERED: Midazolam 2 MG/2 ML VIAL ONE (11:59)
[2017-02-28] MEDS ORDERED: Lactated Ringer's 1,000 ML IV ONE (12:00)
[2017-02-28] MEDS ORDERED: cefTRIAXone IV 1 gm in Dextros 50 ML IVPB ONE (12:09)
[2017-02-28] MEDS ORDERED: Lidocaine 2% Jelly (Uro-Jet) ONE (12:09)
[2017-02-28] MEDS ORDERED: Iohexol 240 (50 ml) ONE (12:09)
[2017-02-28] MEDS ORDERED: HYDROmorphone 0.5 mg/0.5 ml ISec IVP PRN (12:41)
--- NOTE | 2017-02-28 20:58 | PN ---
DATE: 02/28/2017 SUBJECTIVE: The patient is seen today 02/28/2017. He is not in any cardiopulmonary distress. The pat ient is postoperative. Status post TURP. PHYSICAL EXAMINATION: VITAL SIGNS: Blood pressure is 165/74, temperature 97.2, respiratory rate 16, and pulse 54. HEENT: Pupils equal, reactive to light. Normal-appearing mucosa of the conjunctivae, oropharyngeal and nasal membrane mucosa. NECK: Supple, no JVD, no carotid bruit, no lymph node, no thyromegaly. CHEST AND LUNGS: Bilateral symmetrical expansion, good air exchange, no rales, no rhonchi. CARDIOVASCULAR: PMI not localized. S1, S2. No additional sounds. ABDOMEN: Normoactive bowel sounds, no tenderness, no organomegaly, no masses. EXTREMITIES: No cyanosis, no clubbing, no edema. CENTRAL NERVOUS SYSTEM: Alert, awake, oriented x 1. No neurological deficits could be appreciated. ASSESSMENT: 1. Urinary retention with prostate enlargement and increased PSA, status post transurethral resectio n of prostate. 2. Hypertension. 3. Degenerative spine disease. PLAN: Continue current management and follow recommendations of urologist. Jeanne Buenrostro MD cc: 167 TT: 02/28/2017 20:58:00 Confirmation # [id number] Dictation # [id number] pearl
[2017-03-01 07:24] LABS: BASO % 0.4 % (0.0-2.0); EOS # 0.3 K/uL (0.0-0.7); EOS % 2.8 % (0.0-4.0); HEMATOCRIT 36.9 % (35.0-51.0); LYMPH % 10.9 % (20.0-40.0); MEAN CELL VOLUME 96.2 fL (80.0-94.0); MEAN CORPUSCULAR HEMOGLOBIN 32.7 pg (27.0-31.0); MEAN PLATELET VOLUME 9.7 fL (7.2-11.7); MONO % 11.2 % (0.0-10.0); NRBC % 0.1 % (0.0-2.0); RED CELL DISTRIBUTION WIDTH 14.6 % (11.5-14.5); WHITE BLOOD COUNT 9.3 K/uL (4.8-10.8)
[2017-03-01 07:33] LABS: CHLORIDE 96 mmol/L (98-107); POTASSIUM 3.8 mmol/L (3.6-5.2); SODIUM 139 mmol/L (132-148)
[2017-03-01 07:35] LABS: ALKALINE PHOSPHATASE 79 U/L (38-126); AST/SGOT 22 U/L (17-59); BILIRUBIN,TOTAL 0.7 mg/dL (0.2-1.3); CARBON DIOXIDE 28 mmol/L (22-30); GFR AFRICAN-AMERICAN > 60
[2017-03-01 07:36] LABS: ALB/GLOB RATIO 1.1 (1.0-2.1); ALT/SGPT 20 U/L (21-72); BLOOD UREA NITROGEN 14 mg/dL (9-20); GLUCOSE,RANDOM 101 mg/dL (75-110)
[2017-03-01 07:37] LABS: CALCIUM 8.5 mg/dl (8.6-10.4)
--- NOTE | 2017-03-01 10:01 | PCM.URO ---
Urology Progress Note - Objective Lab Results Last 24 Hours: Laboratory Results - last 24 hr 02/28/17 02/28/17 03/01/17 16:28 21:17 06:54 WBC RBC Hgb Hct MCV MCH MCHC RDW Plt Count MPV Neut % (Auto) Lymph % (Auto) [place] % (Auto) Eos % (Auto) Baso % (Auto) Neut # Lymph # [place] # Eos # Baso # Sodium Potassium Chloride Carbon Dioxide Anion Gap BUN Creatinine Est GFR ( Amer) Est GFR (Non-Af Amer) POC Glucose (mg/dL) 119 H 140 H 102 Random Glucose Calcium Total Bilirubin AST ALT Alkaline Phosphatase Total Protein Albumin Globulin Albumin/Globulin Ratio 03/01/17 07:01 WBC 9.3 RBC 3.84 L Hgb 12.6 Hct 36.9 MCV 96.2 H MCH 32.7 H MCHC 34.0 RDW 14.6 H Plt Count 240 MPV 9.7 Neut % (Auto) 74.7 Lymph % (Auto) 10.9 L [place] % (Auto) 11.2 H Eos % (Auto) 2.8 Baso % (Auto) 0.4 Neut # 6.9 Lymph # 1.0 [place] # 1.0 H Eos # 0.3 Baso # 0.0 Sodium 139 Potassium 3.8 Chloride 96 L Carbon Dioxide 28 Anion Gap 19 BUN 14 Creatinine 1.0 Est GFR ( Amer) > 60 Est GFR (Non-Af Amer) > 60 POC Glucose (mg/dL) Random Glucose 101 Calcium 8.5 L Total Bilirubin 0.7 AST 22 ALT 20 L Alkaline Phosphatase 79 Total Protein 7.0 Albumin 3.6 Globulin 3.3 Albumin/Globulin Ratio 1.1 Intake & Output: Intake & Output 02/28/17 03/01/17 03/01/17 18:59 06:59 18:59 Intake Total 0 490 Output Total 600 1500 Balance -600 -1010 Intake: Oral 0 490 Output: Urine 600 1500 Urethral (Fuller) 450 1500 Other: # Bowel Movements 0 Vital Signs: Vital Signs - 24 hr 02/28/17 02/28/17 02/28/17 13:00 13:15 13:30 Temperature 97.2 F L Pulse Rate 59 L 55 L 53 L Respiratory 16 14 11 L Rate Blood Pressure 161/70 H 189/80 H 171/84 H O2 Sat by Pulse 96 98 99 Oximetry 02/28/17 02/28/17 02/28/17 13:45 13:50 14:00 Temperature Pulse Rate 51 L 50 L 53 L Respiratory 14 12 17 Rate Blood Pressure 174/80 H 167/70 H O2 Sat by Pulse 98 98 98 Oximetry 02/28/17 02/28/17 02/28/17 14:15 14:30 15:00 Temperature 97.2 F L 97.4 F L Pulse Rate 59 L 54 L 49 L Respiratory 13 16 20 Rate Blood Pressure 170/75 H 172/67 H 169/73 H O2 Sat by Pulse 97 97 Oximetry 02/28/17 03/01/17 18:05 00:00 Temperature 98 F Pulse Rate 60 Respiratory 20 Rate Blood Pressure 165/74 H 170/80 H O2 Sat by Pulse 97 Oximetry
[2017-03-01] MEDS: guaiFENesin 100 mg/5 ml Syrup UD PO PRN (17:27)
--- NOTE | 2017-03-01 20:05 | PN ---
DATE: 03/01/2017 The patient is seen today, 03/01/2017. He is postoperative day #2. No respiratory distress, no chest pain. Blood pressure 174/71, temperature 97.7, respiratory rate 18, and pulse 65. HEENT: Pupils equal, reactive to light. Normal-appearing mucosa of the conjunctivae, oropharyngeal, and nasal membrane mucosa. NECK: Supple, no JVD, no carotid bruit, no lymph node, no thyromegaly. CHEST AND LUNGS: Bilateral symmetrical expansion. Good air exchange, no rales , no rhonchi. CARDIOVASCULAR SYSTEM: PMI not localized. S1, S2. No additional sounds. ABDOMEN: Normoactive bowel sounds, no tenderness, no organomegaly, no masses. EXTREMITIES: No cyanosis, no edema , . Neuro ; AOOx x2. No neurological deficits could be appreciated. PLAN: Continue current management, and follow up urology recommendations. [facility] Sofía Buenrostro MD cc: 167 TT: 03/01/2017 20:04:42 Confirmation # [id number] Dictation # [id number] jn MTDD
--- NOTE | 2017-03-03 09:01 | CARD ---
APPROVED REPORT EKG Measurement Heart [id number] IN 146P46 [id number] [id number] <Conclusion> Sinus bradycardia left axis deviation nonspecific t wave flattening U waves noted.
--- NOTE | 2017-03-04 01:43 | PN ---
DATE: 03/01/2017 See the previously dictated consult notes and multiple progress notes and urology operative report fo r 02/28/2017. The patient is postop TURP. Day #1. I spoke to the nurses several times since the procedure. The patient had a reasonable night . The Fuller catheter is in place. There is a slight blood tinge. He had CBI running extremely slowly, almost just dripping. See below. PAST MEDICAL AND SURGICAL HISTORY: No other changes. REVIEW OF SYSTEMS: Listed above. PHYSICAL EXAMINATION: GENERAL: Well-nourished male in no apparent distress. VITAL SIGNS: Noted. ABDOMEN: Relatively softish. Fuller catheter is in place, draining clear urine. irrigating well. DIAGNOSES: Urinary retention; voiding dysfunction; elevated PSA; nocturia; and urinary retention, re current episodes. PLAN: As follows: We are going to leave this Fuller in. Again, because of the Plavix, we expect a l ittle blood. We are going to ask not to resume the Plavix until further notice and not to resume hep nikko or the like. We are going to continue to observe the patient and then subsequently plan for a trial void. Brent Gill MD cc: [phone] TT: 03/04/2017 01:43:02 Confirmation # [id number] Dictation # [id number] tn
--- NOTE | 2017-03-04 07:41 | OP ---
PROCEDURE DATE: 02/28/2017 PREOPERATIVE DIAGNOSES: Urine retention, voiding dysfunction, decreased force of stream, nocturia, r ecurrent episodes of retention, elevated PSA. POSTOPERATIVE DIAGNOSES: Urine retention, voiding dysfunction, decreased force of stream, nocturia, recurrent episodes of retention, elevated PSA. PROCEDURE: Transurethral resection of the prostate using electrocautery. COMPLICATIONS: There were no complications. BLOOD LOSS: Less than 25 mL. INDICATIONS: See history and physical, consultations, daily progress notes. A very pleasant gentleman who is 86 already. I explained the risks of prostate cancer; they are very significant, just as a general thing by age and criteria, but the issue here is urinary retention. We discussed options particularly and my recommendation was to try outpatient followup. The patient has had this and it has been going on for quite some time and, therefore, today what we did was a cys tostomy and a TURP all at the same time. There were no complications. And we also did this. The patient has been on Plavix till last week. This today is 7 that he has be en off the Plavix. I explained to the patient that very often we try to keep them off even a little longer, but again th e family would like it done as quickly as possible and then to discharge home with no Fuller, which is still our intended plan. DESCRIPTION OF PROCEDURE: After discussing risks, benefits, treatment alternatives, specifically the risk of bleeding given his state of the Plavix, given the risk of the possibility for an underlying prostate cancer in this 86-year-old gentleman, what we did today is we did the above listed procedure (in the future, will see his PSA and will see whether or not is warrants a biopsy. We can discuss a ll those). The first goal here is trying to get out of urinary retention. I did discuss urodynamics and workup, but this is not all available to us now. So we are going to proceed with the above list ed procedure. I did discuss and we got medical clearance. See the chart notes. The patient is under the care of Dr. Buenrostro. Also was seen by cardiology, by Dr. Vaibhav Lundberg. PROCEDURE: After obtaining informed consent, the patient was placed on the table, routine monitors p laced, timeouts were called, we confirmed the patient and positioning. I had discussed all risks and benefits of treatment with the patient at great length. We, at this point, we removed the Fuller catheter and introduced the cystoscope. Normal anterior uret hra. From the prostate, the veru is obstructed at 2-3 cm in length. I left identified our landmarks. The erythema within in the bladder mucosa is probably secondary to Fuller. There are no direct lesions or polyps seen. Pictures were taken and saved. We now carefully began the resection. We introduced the continuous flow resectoscope. Introduced it very carefully. We identified our landmarks. We began at the bladder neck. We did it very slowly and carefully. We used cutting at 180, cautery at 80, and just slowly, carefully and gently we started at the bladder neck between 5 and 7. Once we took this down, we turned our attention to 7-11 and then 5-1. We then worked our way carefully each time piece by piece, making sure there was no bleeding. We had good visualization. We worked our way slowly, carefully back to the veru. Now we turned our attention to the anterior portion. Gently, carefully between 11 and 1, continuing to define where we are near the bladder neck and then once worked our way back towards the veru being very careful, slowly, meticulously. Once we had achieved hemostasis, we then irrigated out all the prostate chips and sent these to the lab. Overall, at this point, took pictures. From the veru on in, it is wide open. The patient tolerated the procedure well without complication. There is no bleeding. We turned off all the irrigation; I saw there was really no bleeding. The patient tolerated the procedure without complication. Brent Gill MD cc: [phone] TT: 03/04/2017 07:41:12 candis
--- NOTE | 2017-03-04 10:01 | PN ---
DATE: 03/02/2017 The patient is seen today 03/02/2017. His mental status is fluctuating. The patient is still on bladder irrigation postoperative day #3. PHYSICAL EXAMINATION: VITAL SIGNS: Blood pressure 145/69, temperature 98.6, respiratory rate 16, pulse of 70. HEENT: Pupils equal, reactive to light. Normal-appearing mucosa of the conjunctivae, oropharyngeal and nasal membrane mucosa. NECK: Supple, no JVD, no carotid bruit, no lymph node, no thyromegaly. CHEST AND LUNGS: Bilateral symmetrical expansion, good air exchange, no rales, no rhonchi. CARDIOVASCULAR: PMI not localized. S1, S2. No additional sounds. ABDOMEN: Normoactive bowel sounds, no tenderness, no organomegaly, no masses. EXTREMITIES: No cyanosis, no clubbing, no edema. CENTRAL NERVOUS SYSTEM: Alert, awake, oriented x 2. No neurological deficits could be appreciated. ASSESSMENT: 1. Urinary retention status post transurethral resection of the prostate. 2. Degenerative spine disease. 3. Hypertension. 4. Postoperative delirium, likely secondary to anesthesia affect . PLAN: Continue current medications and 1:1 observation for safety and patient and the family at the bedside. Will continue current management and follow urology recommendations. Jeanne Buenrostro MD cc: 167 TT: 03/02/2017 17:06:23 Confirmation # [id number] Dictation # [id number] markus LUIS
[2017-03-04 16:43] LABS: BASO # 0.1 K/uL (0.0-0.2); BASO % 0.7 % (0.0-2.0); EOS # 0.3 K/uL (0.0-0.7); EOS % 3.2 % (0.0-4.0); HEMATOCRIT 39.1 % (35.0-51.0); LYMPH # 1.8 K/uL (1.0-4.3); LYMPH % 19.5 % (20.0-40.0); MEAN CELL VOLUME 96.2 fL (80.0-94.0); MEAN CORPUSCULAR HEMOGLOBIN 32.1 pg (27.0-31.0); MEAN CORPUSCULAR HGB CONC 33.4 g/dL (33.0-37.0); MEAN PLATELET VOLUME 9.3 fL (7.2-11.7); MONO % 11.1 % (0.0-10.0); WHITE BLOOD COUNT 9.2 K/uL (4.8-10.8)
[2017-03-04 16:56] LABS: CHLORIDE 94 mmol/L (98-107)
[2017-03-04 16:57] LABS: POTASSIUM 3.7 mmol/L (3.6-5.2); SODIUM 138 mmol/L (132-148)
[2017-03-04 16:59] LABS: GFR AFRICAN-AMERICAN > 60
[2017-03-04 17:00] LABS: BLOOD UREA NITROGEN 20 mg/dL (9-20); CALCIUM 8.1 mg/dl (8.6-10.4); CARBON DIOXIDE 25 mmol/L (22-30); GLUCOSE,RANDOM 98 mg/dL (75-110)
[2017-03-04 17:14] VITALS: BP 121/59; PULSE 69; RESP 20; TEMP 97.7; O2SAT 96
--- NOTE | 2017-03-04 22:15 | DS ---
REASON FOR ADMISSION: This is an 86-year-old male with history of multiple medical problems who was admitted for urinary retention. COURSE OF HOSPITALIZATION: The patient was admitted to medical floor and he had a Fuller catheter gertrude bill. The patient had a urology consultation done by Dr. Gill. The patient underwent TURP. The p atient had uneventful postoperative course and he was discharged in stable condition. Discussed with Dr. Gill who will follow the pathology and will follow the patient as an outpatient. FINAL DIAGNOSES: 1. Urinary retention secondary to enlarged prostate, rule out prostate cancer. 2. Hypertension. 3. Degenerative spine disease. 4. Smoker. [facility] Sofía Buenrostro MD cc: 167 TT: 03/04/2017 22:15:16 mn
== END 2017-03-04 17:45 | disposition home or self-care (01) | DRG 713 ==
LOC: C.ER 08:54 → C.9E 11:45 → C.3T 12:04 → OBSVTOIN 02-25 09:50 → C.3T 02-25 21:15
PROVIDERS: ADMIT Internal Medicine; ATTEND Internal Medicine
PROC: 0VT08ZZ Resection of Prostate, Via Natural or Artificial Opening Endoscopic (ICD-10-PCS; principal; 2017-02-28 12:00)
DX: C61 Malignant neoplasm of prostate (principal); N13.8 Other obstructive and reflux uropathy; N17.9 Acute kidney failure, unspecified; J44.9 Chronic obstructive pulmonary disease, unspecified; I10 Essential (primary) hypertension; F17.200 Nicotine dependence, unspecified, uncomplicated; I25.10 Atherosclerotic heart disease of native coronary artery without angina pectoris; R33.8 Other retention of urine; Z86.73 Personal history of transient ischemic attack (TIA), and cerebral infarction without residual deficits; Z95.5 Presence of coronary angioplasty implant and graft; Z68.21 Body mass index [BMI] 21.0-21.9, adult; M47.9 Spondylosis, unspecified; E87.6 Hypokalemia

== ENCOUNTER 2017-03-11 20:15 | Inpatient (IN) | payer MEDICARE, OTHER ==
[2017-03-11 22:24] LABS: BASO % 0.1 % (0.0-2.0); HEMATOCRIT 33.8 % (35.0-51.0); LYMPH # 0.9 K/uL (1.0-4.3); MEAN CORPUSCULAR HEMOGLOBIN 32.1 pg (27.0-31.0); MEAN CORPUSCULAR HGB CONC 33.4 g/dL (33.0-37.0); MEAN PLATELET VOLUME 9.3 fL (7.2-11.7); MONO # 1.5 K/uL (0.0-0.8); MONO % 10.5 % (0.0-10.0); PLATELET COUNT 328 K/uL (130-400); RED CELL DISTRIBUTION WIDTH 14.8 % (11.5-14.5); WHITE BLOOD COUNT 14.2 K/uL (4.8-10.8)
[2017-03-11 22:31] LABS: POTASSIUM 3.3 mmol/L (3.6-5.2)
[2017-03-11 22:33] LABS: BILIRUBIN,TOTAL 0.7 mg/dL (0.2-1.3)
[2017-03-11 22:34] LABS: ALB/GLOB RATIO 1.3 (1.0-2.1); CALCIUM 8.3 mg/dl (8.6-10.4); TOTAL PROTEIN 7.3 g/dL (6.3-8.3)
[2017-03-11 22:43] LABS: RBC URINE 47377 /hpf (0-3); URINE BACTERIA FEW (<OCC); URINE BILIRUBIN NEGATIVE (NEGATIVE); URINE BLOOD 3+ (NEGATIVE); URINE GLUCOSE (UA) 1+ mg/dL (Normal); URINE KETONE NEGATIVE (NEGATIVE); URINE LEUKOCYTE ESTERASE NEG Leu/uL (Negative); URINE PROTEIN 2+ mg/dL (NEGATIVE); URINE UROBILINOGEN NORMAL mg/dL (0.2-1.0)
[2017-03-11 22:46] LABS: TROPONIN I 0.119 ng/mL (0.00-0.120)
[2017-03-11 22:57] LABS: URINE COLOR RED (YELLOW)
[2017-03-11 23:51] LABS: NEUTROPHIL 81 % (50-75); TOTAL CELLS COUNTED 100
[2017-03-11 23:52] LABS: LARGE PLATELETS PRESENT; SMUDGE CELLS PRESENT
--- NOTE | 2017-03-12 00:01 | C.PDOC ---
History Of Present Illness 86 year old patient, with a past medical history of hypertension, presents to the ED complaining of urinary retention for the past 2 days. Patient is s/p TURP. Patient was seen by Dr. Porter Gill on 02/25/17. Patient denies fever, chills, nausea, or vomiting. Time Seen by Provider: 03/11/17 21:51 Chief Complaint (Nursing): Male Genitourinary History Per: Patient History/Exam Limitations: no limitations Onset/Duration Of Symptoms: Days (2) Current Symptoms Are (Timing): Still Present Severity: Mild Pain Scale Rating Of: 3 Quality Of Discomfort: Pressure, Other (fullness) Associated Symptoms: Urinary Symptoms Alleviating Factors: None Recent travel outside of the [place]: No Past Medical History Reviewed: Historical Data, Nursing Documentation, Vital Signs Vital Signs: Last Vital Signs Temp 98.0 F 03/12/17 00:47 Pulse 55 L 03/12/17 00:47 Resp 16 03/12/17 00:47 BP 149/65 03/12/17 00:47 Pulse Ox 97 03/12/17 00:47 - Medical History PMH: HTN Surgical History: Cholecystectomy, Coronary Stent - [facility] Procedures RESECTION OF PROSTATE, ENDO (02/25/17) Family History: States: Unknown Family Hx - Social History Hx Tobacco Use: Yes Hx Alcohol Use: No Hx Substance Use: No - Immunization History Hx Tetanus Toxoid Vaccination: No Hx Influenza Vaccination: Yes Hx Pneumococcal Vaccination: Yes Review Of Systems Except As Marked, All Systems Reviewed And Found Negative. Constitutional: Negative for: Fever, Chills Gastrointestinal: Negative for: Nausea, Vomiting Genitourinary: Positive for: Other (urinary retention) Physical Exam - Physical Exam Appears: Non-toxic, No Acute Distress, Other (elderly) Skin: Warm, Dry Head: Atraumatic, Normacephalic Eye(s): bilateral: PERRL, EOMI Oral Mucosa: Moist Neck: Normal ROM, Supple Chest: Symmetrical Cardiovascular: Rhythm Regular Respiratory: Normal Breath Sounds, No Rales, No Rhonchi, No Wheezing Gastrointestinal/Abdominal: Soft, No Tenderness, No Guarding, No Rebound, Other (suprapubic fullness) Back: Normal Inspection, No CVA Tenderness Extremity: Normal ROM Neurological/Psych: Oriented x3 ED Course And Treatment - Laboratory Results Result Diagrams: 03/11/17 22:15 03/11/17 22:15 Lab Interpretation: Abnormal ECG: Interpreted By Me ECG Rhythm: Sinus Rhythm ECG Interpretation: Normal Rate From EC O2 Sat by Pulse Oximetry: 98 Pulse Ox Interpretation: Normal - Radiology CXR: Interpreted by Me CXR Interpretation: Yes: No Acute Disease Progress Note: young for 850 cc's of bloody urine, few clots Reevaluation Time: 00:02 Reassessment Condition: Improved Medical Decision Making Medical Decision Making: hematuria and retention after TURP 02/25/17 No s/s of infection, Cipro empirically. Disposition Doctor Will See Patient In The: Hospital Counseled Patient/Family Regarding: Studies Performed, Diagnosis - Disposition Disposition: HOSPITALIZED Disposition Time: 00:02 Condition: GOOD - Clinical Impression Clinical Impression: UTI (urinary tract infection), Hematuria - Scribe Statement The provider has reviewed the documentation as recorded by the Scribe Julia Lawton Provider Attestation: All medical record entries made by the Scribe were at my direction and personally dictated by me. I have reviewed the chart and agree that the record accurately reflects my personal performance of the history, physical exam, medical decision making, and the department course for this patient. I have also personally directed, reviewed, and agree with the discharge instructions and disposition.
[2017-03-12] MEDS ORDERED: Ciprofloxacin 400mg/200ml D5W 200 ML IV STA (00:03)
[2017-03-12] MEDS ORDERED: Ciprofloxacin 400mg/200ml D5W 200 ML IVPB ONE (00:15)
--- NOTE | 2017-03-12 08:41 | RAD ---
PROCEDURE: CHEST RADIOGRAPH, 1 VIEW HISTORY: Shortness of breath COMPARISON: None available. FINDINGS: LUNGS: Mild venous congestion. Biapical pleural thickening with upper lobe granulomatous changes. PLEURA: As above. CARDIOVASCULAR: Calcification at the aortic knob. Tortuous ectatic aorta. Aortic stent in place. OSSEOUS STRUCTURES: Degenerative changes. VISUALIZED UPPER ABDOMEN: Normal. OTHER FINDINGS: None. IMPRESSION: Mild venous congestion.
[2017-03-12 14:03] LABS: BASO % 0.3 % (0.0-2.0); EOS # 0.1 K/uL (0.0-0.7); EOS % 1.7 % (0.0-4.0); HEMATOCRIT 29.3 % (35.0-51.0); LYMPH % 13.5 % (20.0-40.0); MEAN CELL VOLUME 95.8 fL (80.0-94.0); MEAN CORPUSCULAR HEMOGLOBIN 32.5 pg (27.0-31.0); MEAN PLATELET VOLUME 9.2 fL (7.2-11.7); MONO # 0.9 K/uL (0.0-0.8); RED CELL DISTRIBUTION WIDTH 15.1 % (11.5-14.5); WHITE BLOOD COUNT 7.8 K/uL (4.8-10.8)
[2017-03-12 14:10] LABS: CHLORIDE 103 mmol/L (98-107); POTASSIUM 3.4 mmol/L (3.6-5.2); SODIUM 140 mmol/L (132-148)
--- NOTE | 2017-03-12 14:10 | HP ---
HISTORY OF PRESENT ILLNESS: This is an 86-year-old male with history of multiple medical pr oblems. Recently was discharged from the hospital after TURP and the pathology was adenocarcinoma. The patient presented to Emergency Room with inability to urinate, found to be in urinary retention a nd about a liter was drained after insertion of a Fuller catheter. Urine was bloody. The patient had similar presentation last admission. The patient denied to have any pain and no fever. REVIEW OF SYSTEMS: Negative except for back pain positive. ALLERGIES: No known allergy. HOME MEDICATIONS: Losartan 100 mg daily, Crestor 5 mg daily, multivitamin once a day, Lopressor 25 m g daily, amlodipine 10 mg daily, Pepcid 20 mg daily, Plavix 75 mg daily, Proscar 5 mg daily. SOCIAL HISTORY: Positive smoker. No ETOH or substance abuse. PAST MEDICAL HISTORY: Peripheral vascular disease, hypertension, degenerative spine disease, osteoar thritis. FAMILY HISTORY: Noncontributory. PHYSICAL EXAMINATION: GENERAL: The patient is in bed, comfortable, not in any cardiopulmonary distress. VITAL SIGNS: Blood pressure 165/67, temperature 97.4, respiratory rate 20, and pulse 58. HEENT: Pupils equal, reactive to light. Normal-appearing mucosa of the conjunctivae, oropharyngeal and nasal membrane mucosa. NECK: Supple, no JVD, no carotid bruit, no lymph node, no thyromegaly. CHEST AND LUNGS: Bilateral symmetrical expansion, good air exchange, no rales, no rhonchi. CARDIOVASCULAR: PMI not localized. S1, S2. No additional sounds. ABDOMEN: Normoactive bowel sounds, no tenderness, no organomegaly, no masses. EXTREMITIES: No cyanosis, no clubbing, no edema. CENTRAL NERVOUS SYSTEM: Alert, awake, oriented x 2. No neurological deficits could be appreciated. ASSESSMENT: 1. 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 2. Hypertension. 3. Degenerative spine disease. PLAN: We will send urine for urinalysis and culture. Continue Fuller catheter. Resume the patient's home medications. Urology consultation. Follow recommendations. Jeanne Buenrostro MD cc: 167 TT: 03/12/2017 14:09:35 rn
[2017-03-12 14:12] LABS: AST/SGOT 29 U/L (17-59); BILIRUBIN,TOTAL 0.4 mg/dL (0.2-1.3); CARBON DIOXIDE 26 mmol/L (22-30); GFR AFRICAN-AMERICAN > 60
[2017-03-12 14:13] LABS: ALB/GLOB RATIO 1.1 (1.0-2.1); ALKALINE PHOSPHATASE 68 U/L (38-126); ALT/SGPT 23 U/L (21-72); BLOOD UREA NITROGEN 18 mg/dL (9-20); CALCIUM 7.9 mg/dl (8.6-10.4); GLUCOSE,RANDOM 120 mg/dL (75-110); TOTAL PROTEIN 6.1 g/dL (6.3-8.3)
--- NOTE | 2017-03-12 18:54 | CARD ---
APPROVED REPORT EKG Measurement Heart [id number] GA 162P58 [id number] <Conclusion> Sinus bradycardia Nonspecific ST and T wave abnormality Abnormal ECG
[2017-03-13] MEDS: Multiple Vitamins Tab PO SCH (09:42)
[2017-03-13] MEDS: Potassium Chloride 20 mEq ER Tab PO SCH (10:43)
--- NOTE | 2017-03-13 19:16 | PN ---
DATE: 03/13/2017 SUBJECTIVE: The patient is seen today, 03/13/2017. He still has bloody urine going through the Fole y catheter to urinary bag. Blood pressure 162/62, temperature 98.2, respiratory rate 18, and pulse is 49/8. HEENT: Pupils equal, reactive to light. Normal-appearing mucosa of the conjunctivae, oropharyngeal, and nasal membrane mucosa. NECK: Supple, no JVD, no carotid bruit, no lymph node, no thyromegaly. CHEST AND LUNGS: Bilateral symmetrical expansion. Good air exchange, no rales, no rhonchi. CARDIOVASCULAR SYSTEM: PMI not localized. S1, S2. No additional sounds. ABDOMEN: Normoactive bowel sounds, no tenderness, no organomegaly, no masses. EXTREMITIES: No cyanosis, no clubbing, no edema. CENTRAL NERVOUS SYSTEM: Alert, awake, oriented x 2. No neurological deficits could be appreciated. ASSESSMENT: 1. Urinary retention with some hematuria. 2. Status post transurethral resection of the prostate, with pathology report positive for adenocarci noma. 3. Hypertension. 4. Degenerative spine disease. PLAN: Continue current medications and management, and follow urology recommendations. Jeanne Buenrostro MD cc: 167 TT: 03/13/2017 19:16:34 Confirmation # [id number] Dictation # [id number]
--- NOTE | 2017-03-14 04:54 | PCM.URO ---
Urology Progress Note - Objective Intake & Output: Intake & Output 03/13/17 03/13/17 03/14/17 06:59 18:59 06:59 Intake Total 500 Output Total 900 Balance -400 Intake: Oral 500 Output: Urine 900 Urethral (Fuller) 900 Other: # Bowel Movements 2 Vital Signs: Vital Signs - 24 hr 03/13/17 03/13/17 20:00 23:10 Temperature 97.8 F Pulse Rate 48 L 55 L Respiratory 18 20 Rate Blood Pressure 153/62 H 156/66 H O2 Sat by Pulse 97 Oximetry
[2017-03-14] MEDS: Multiple Vitamins Tab PO SCH (09:38)
[2017-03-14] MEDS: Potassium Chloride 20 mEq ER Tab PO SCH (09:38)
--- NOTE | 2017-03-14 10:20 | CP.PCM.CON ---
<Edgardo Sen - Last Filed: 03/14/17 10:17> History of Present Illness - History of Present Illness History of Present Illness: 86 y/o male seen at [facility] for pianful nails. Patient is with his family at the bedside upon exam. patient states that he did not realize his nails were gtting so long or he would have told someone . States that his left foot big toe nail is the worst and is causing him alot of pain. Denies any other pedal complaints. Denies any f/c/n/v/sob. Past Patient History - Infectious Disease Hx of Infectious Diseases: None - Past Medical History & Family History Past Medical History?: Yes - Past Social History Smoking Status: Smoker Currrent Status Unknown - CARDIAC Hx Hypertension: Yes - PULMONARY Hx Respiratory Disorders: No - NEUROLOGICAL Hx Neurological Disorder: No - HEENT Hx HEENT Problems: Yes Other/Comment: WEAR EYEGLASSES FOR READING - RENAL Hx Chronic Kidney Disease: No - ENDOCRINE/METABOLIC Hx Endocrine Disorders: No - HEMATOLOGICAL/ONCOLOGICAL Hx Blood Disorders: No - INTEGUMENTARY Hx Dermatological Problems: No - MUSCULOSKELETAL/RHEUMATOLOGICAL Hx Musculoskeletal Disorders: No Hx Falls: No - GASTROINTESTINAL Hx Gastrointestinal Disorders: No - GENITOURINARY/GYNECOLOGICAL Hx Genitourinary Disorders: Yes Hx Hematuria: Yes Hx Prostate Problems: Yes - PSYCHIATRIC Hx Psychophysiologic Disorder: No Hx Substance Use: No - SURGICAL HISTORY Hx Surgeries: Yes Hx Cholecystectomy: Yes Hx Coronary Stent: Yes - ANESTHESIA Hx Anesthesia: Yes Hx Anesthesia Reactions: No Hx Malignant Hyperthermia: No Has any member of the family had a problem w/ anesthesia?: No Meds Allergies/Adverse Reactions: Allergies Allergy/AdvReac Type Severity Reaction Status Date / Time No Known Allergies Allergy Verified 02/22/17 09:05 - Medications Medications: Current Medications Acetaminophen (Tylenol 325mg Tab) 650 mg PO Q6 PRN PRN Reason: Pain, Mild (1-3) Amlodipine Besylate (Norvasc) 10 mg PO DAILY [facility] Last Admin: 03/14/17 09:38 Dose: 10 mg Clopidogrel Bisulfate (Plavix) 75 mg PO DAILY [facility] Last Admin: 03/14/17 09:37 Dose: 75 mg Famotidine (Pepcid) 20 mg PO DAILY [facility] Last Admin: 03/14/17 09:38 Dose: 20 mg Finasteride (Proscar) 5 mg PO DAILY [facility] Last Admin: 04/20/17 09:37 Dose: 5 mg Losartan Potassium (Cozaar) 100 mg PO DAILY [facility] Last Admin: 03/14/17 09:38 Dose: 100 mg Metoprolol Tartrate (Lopressor) 2.5 mg PO DAILY [facility] Multivitamins (Hexavitamin) 1 tab PO DAILY [facility] Last Admin: 03/14/17 09:38 Dose: 1 tab Potassium Chloride (K-Dur 20 Meq Er Tab) 40 meq PO DAILY [facility] Last Admin: 03/14/17 09:38 Dose: 40 meq Rosuvastatin Calcium (Crestor) 5 mg PO HS [facility] Last Admin: 03/13/17 21:29 Dose: 5 mg Physical Exam - Constitutional Appears: Well, Non-toxic, No Acute Distress - Neurological Exam Neurological exam: Alert, Oriented x3 - Psychiatric Exam Psychiatric exam: Normal Affect, Normal Mood - Skin Skin Exam: Normal Color, Warm - Additional Findings Additional findings: Vasc: DP/PT 1/4 , Temp gradient wnl, Cap fill time < 3 s x 10 Derm: No edema, no erythema, no open lesions, no interdigital maceration, nails elongated and dystorphic x 10 with pain to palpation, left hallucal nail curling into the skin, Neuro: Grossly intact Ortho:limited Results - Vital Signs Recent Vital Signs: Last Vital Signs Temp 98.6 F 03/14/17 08:00 Pulse 62 03/14/17 08:00 Resp 20 03/14/17 08:00 BP 157/63 H 03/14/17 08:00 Pulse Ox 96 03/14/17 08:00 - Labs Result Diagrams: 03/12/17 13:53 03/12/17 13:53 Assessment & Plan - Assessment and Plan (Free Text) Assessment: 86 y/o male seen and evaluated with b/l elongated and painful thickened nails. Plan: Patient evaluated and chart reviewed. Discussed with Dr. Velazquez who is to round later this PM. Nails aseptically debrided x 10 w/o complication Thank you for consult and reconsul as needed. <Anthony Velazquez - Last Filed: 03/14/17 15:12> Meds - Medications Medications: Current Medications Acetaminophen (Tylenol 325mg Tab) 650 mg PO Q6 PRN PRN Reason: Pain, Mild (1-3) Amlodipine Besylate (Norvasc) 10 mg PO DAILY [facility] Last Admin: 03/14/17 09:38 Dose: 10 mg Clopidogrel Bisulfate (Plavix) 75 mg PO DAILY [facility] Last Admin: 03/14/17 09:37 Dose: 75 mg Famotidine (Pepcid) 20 mg PO DAILY [facility] Last Admin: 03/14/17 09:38 Dose: 20 mg Finasteride (Proscar) 5 mg PO DAILY [facility] Last Admin: 03/14/17 09:37 Dose: 5 mg Losartan Potassium (Cozaar) 100 mg PO DAILY [facility] Last Admin: 03/14/17 09:38 Dose: 100 mg Metoprolol Tartrate (Lopressor) 25 mg PO DAILY [facility] Last Admin: 03/14/17 13:24 Dose: Not Given Multivitamins (Hexavitamin) 1 tab PO DAILY [facility] Last Admin: 03/14/17 09:38 Dose: 1 tab Potassium Chloride (K-Dur 20 Meq Er Tab) 40 meq PO DAILY [facility] Last Admin: 03/14/17 09:38 Dose: 40 meq Rosuvastatin Calcium (Crestor) 5 mg PO HS [facility] Last Admin: 03/13/17 21:29 Dose: 5 mg Results - Vital Signs Recent Vital Signs: Last Vital Signs Temp 98.6 F 03/14/17 08:00 Pulse 65 03/14/17 13:25 Resp 20 03/14/17 08:00 BP 154/63 H 03/14/17 13:25 Pulse Ox 96 03/14/17 08:00 - Labs Result Diagrams: 03/12/17 13:53 03/12/17 13:53 Attending/Attestation - Attestation I have personally seen and examined this patient.: Yes I have fully participated in the care of the patient.: Yes I have reviewed all pertinent clinical information: Yes
--- NOTE | 2017-03-14 15:14 | CP.PCM.CON ---
History of Present Illness - History of Present Illness History of Present Illness: Pt seen at bedside. Treatment rendered by resident, Dr. Edgardo Sen. Full consult in chart. Will f/u as needed. Reconsult as needed. Past Patient History - Infectious Disease Hx of Infectious Diseases: None - Past Medical History & Family History Past Medical History?: Yes - Past Social History Smoking Status: Smoker Currrent Status Unknown - CARDIAC Hx Hypertension: Yes - PULMONARY Hx Respiratory Disorders: No - NEUROLOGICAL Hx Neurological Disorder: No - HEENT Hx HEENT Problems: Yes Other/Comment: WEAR EYEGLASSES FOR READING - RENAL Hx Chronic Kidney Disease: No - ENDOCRINE/METABOLIC Hx Endocrine Disorders: No - HEMATOLOGICAL/ONCOLOGICAL Hx Blood Disorders: No - INTEGUMENTARY Hx Dermatological Problems: No - MUSCULOSKELETAL/RHEUMATOLOGICAL Hx Musculoskeletal Disorders: No Hx Falls: No - GASTROINTESTINAL Hx Gastrointestinal Disorders: No - GENITOURINARY/GYNECOLOGICAL Hx Genitourinary Disorders: Yes Hx Hematuria: Yes Hx Prostate Problems: Yes - PSYCHIATRIC Hx Psychophysiologic Disorder: No Hx Substance Use: No - SURGICAL HISTORY Hx Surgeries: Yes Hx Cholecystectomy: Yes Hx Coronary Stent: Yes - ANESTHESIA Hx Anesthesia: Yes Hx Anesthesia Reactions: No Hx Malignant Hyperthermia: No Has any member of the family had a problem w/ anesthesia?: No Meds Allergies/Adverse Reactions: Allergies Allergy/AdvReac Type Severity Reaction Status Date / Time No Known Allergies Allergy Verified 02/22/17 09:05 - Medications Medications: Current Medications Acetaminophen (Tylenol 325mg Tab) 650 mg PO Q6 PRN PRN Reason: Pain, Mild (1-3) Amlodipine Besylate (Norvasc) 10 mg PO DAILY [facility] Last Admin: 03/14/17 09:38 Dose: 10 mg Clopidogrel Bisulfate (Plavix) 75 mg PO DAILY [facility] Last Admin: 03/14/17 09:37 Dose: 75 mg Famotidine (Pepcid) 20 mg PO DAILY [facility] Last Admin: 03/14/17 09:38 Dose: 20 mg Finasteride (Proscar) 5 mg PO DAILY [facility] Last Admin: 03/14/17 09:37 Dose: 5 mg Losartan Potassium (Cozaar) 100 mg PO DAILY [facility] Last Admin: 03/14/17 09:38 Dose: 100 mg Metoprolol Tartrate (Lopressor) 25 mg PO DAILY [facility] Last Admin: 03/14/17 13:24 Dose: Not Given Multivitamins (Hexavitamin) 1 tab PO DAILY [facility] Last Admin: 03/14/17 09:38 Dose: 1 tab Potassium Chloride (K-Dur 20 Meq Er Tab) 40 meq PO DAILY [facility] Last Admin: 03/14/17 09:38 Dose: 40 meq Rosuvastatin Calcium (Crestor) 5 mg PO HS [facility] Last Admin: 03/13/17 21:29 Dose: 5 mg Results - Vital Signs Recent Vital Signs: Last Vital Signs Temp 98.6 F 03/14/17 08:00 Pulse 65 03/14/17 13:25 Resp 20 03/14/17 08:00 BP 154/63 H 03/14/17 13:25 Pulse Ox 96 03/14/17 08:00 - Labs Result Diagrams: 03/12/17 13:53 03/12/17 13:53
--- NOTE | 2017-03-14 21:45 | PN ---
DATE: 03/14/2017 SUBJECTIVE: The patient is seen today 03/14/2017. catheter was removed by Dr. Gill and patient will be monitored. PHYSICAL EXAMINATION: VITAL SIGNS: Blood pressure is 146/63, temperature 98.5, respiratory rate 18, and pulse is 69. HEENT: Pupils equal, reactive to light. Normal-appearing mucosa of the conjunctivae, oropharyngeal and nasal membrane mucosa. NECK: Supple, no JVD, no carotid bruit, no lymph node, no thyromegaly. CHEST AND LUNGS: Bilateral symmetrical expansion, good air exchange, no rales, no rhonchi. CARDIOVASCULAR: PMI not localized. S1, S2. No additional sounds. ABDOMEN: Normoactive bowel sounds, no tenderness, no organomegaly, no masses. EXTREMITIES: No cyanosis, no clubbing, no edema. CENTRAL NERVOUS SYSTEM: Alert, awake, oriented x 2. No neurological deficits could be appreciated. ASSESSMENT: 1. Urinary retention. 2. Hematuria. 3. Status post transurethral resection of prostate. 4. Prostatic cancer. 5. Hypertension. 6. Degenerative spine disease. PLAN: Continue current medications and management and follow up urology recommendations. Jeanne Buenrostro MD cc: [phone] TT: 03/14/2017 21:43:56 Confirmation # [id number] Dictation # [id number] MTDD
[2017-03-15 07:44] LABS: BASO % 0.6 % (0.0-2.0); EOS # 0.3 K/uL (0.0-0.7); EOS % 4.9 % (0.0-4.0); HEMATOCRIT 32.7 % (35.0-51.0); LYMPH # 1.1 K/uL (1.0-4.3); LYMPH % 15.8 % (20.0-40.0); MEAN CELL VOLUME 96.1 fL (80.0-94.0); MEAN CORPUSCULAR HEMOGLOBIN 32.2 pg (27.0-31.0); MEAN CORPUSCULAR HGB CONC 33.5 g/dL (33.0-37.0); MEAN PLATELET VOLUME 8.6 fL (7.2-11.7); MONO # 0.7 K/uL (0.0-0.8); MONO % 10.3 % (0.0-10.0); WHITE BLOOD COUNT 7.1 K/uL (4.8-10.8)
[2017-03-15 07:49] LABS: CHLORIDE 101 mmol/L (98-107); SODIUM 139 mmol/L (132-148)
[2017-03-15 07:50] LABS: POTASSIUM 3.8 mmol/L (3.6-5.2)
[2017-03-15 07:52] LABS: GFR AFRICAN-AMERICAN > 60
[2017-03-15 07:53] LABS: BLOOD UREA NITROGEN 15 mg/dL (9-20); CALCIUM 7.8 mg/dl (8.6-10.4); CARBON DIOXIDE 28 mmol/L (22-30); GLUCOSE,RANDOM 95 mg/dL (75-110)
[2017-03-15] MEDS: Multiple Vitamins Tab PO SCH (09:55)
[2017-03-15] MEDS: Potassium Chloride 20 mEq ER Tab PO SCH (09:55)
--- NOTE | 2017-03-15 13:27 | PCM.URO ---
Urology Progress Note - General General: No Complaints, Tolerating Diet - Subjective Abdominal Pain: No Flank Pain: No Nausea: No Voiding Well: Yes Hematuria: Yes Frequency: Yes Dsypnea: Yes Chest Pain: Yes Fever & Chills: Yes - Objective Lab Results Last 24 Hours: Laboratory Results - last 24 hr 03/15/17 07:17 WBC 7.1 RBC 3.41 L Hgb 11.0 L Hct 32.7 L MCV 96.1 H MCH 32.2 H MCHC 33.5 RDW 15.0 H Plt Count 290 MPV 8.6 Neut % (Auto) 68.4 Lymph % (Auto) 15.8 L [place] % (Auto) 10.3 H Eos % (Auto) 4.9 H Baso % (Auto) 0.6 Neut # 4.9 Lymph # 1.1 [place] # 0.7 Eos # 0.3 Baso # 0.0 Sodium 139 Potassium 3.8 Chloride 101 Carbon Dioxide 28 Anion Gap 14 BUN 15 Creatinine 1.3 Est GFR ( Amer) > 60 Est GFR (Non-Af Amer) 52 Random Glucose 95 Calcium 7.8 L Intake & Output: Intake & Output 03/14/17 03/15/17 03/15/17 18:59 06:59 18:59 Intake Total 480 720 Output Total 300 1000 Balance 180 -280 Intake: Oral 480 720 Output: Urine 300 1000 Urethral (Fuller) 300 Urine, Voided 1000 Other: # Voids Urethral (Fuller) 300 Urine, Voided 1 # Bowel Movements 0 0 Vital Signs: Vital Signs - 24 hr 03/14/17 03/14/17 03/14/17 13:25 16:00 18:55 Temperature 98.5 F Pulse Rate 65 69 69 Respiratory 18 Rate Blood Pressure 154/63 H 146/63 O2 Sat by Pulse 97 Oximetry 03/14/17 03/15/17 03/15/17 23:05 09:12 09:15 Temperature 98.2 F 97.0 F L Pulse Rate 54 L 54 L 54 L Respiratory 20 20 Rate Blood Pressure 156/68 H 149/69 O2 Sat by Pulse 96 95 Oximetry 03/15/17 09:55 Temperature Pulse Rate Respiratory Rate Blood Pressure 131/62 O2 Sat by Pulse Oximetry - Physical Exam Abdominal Exam: Soft, Non-Distended Back: No CVA Tenderness Genitalia: Without Inflammation - Male Phallus: Normal Scrotum: Normal Testes: Normal: Bilateral - Plan Additional Information: IMP: HEMATURIA. PROSTATE CA - Date & Time of Note Date: 03/15/17 Time: 13:26
--- NOTE | 2017-03-15 15:37 | PN ---
DATE: 03/15/2017 SUBJECTIVE: The patient is seen today, 03/15/2017. He is not in any cardiopulmonary distress, but p atient still has significant hematuria. PHYSICAL EXAMINATION: VITAL SIGNS: Blood pressure is 131/62, temperature 97.0, respiratory rate 20, and pulse is 54. HEENT: Slightly pale mucosa of the conjunctivae. NECK: Supple. No JVD, no carotid bruit, no lymph node, no thyromegaly. CHEST AND LUNGS: Bilateral symmetrical expansion, good air exchange. No rales, no rhonchi. CARDIOVASCULAR: PMI not localized. S1, S2. No additional sounds. ABDOMEN: Normoactive bowel sounds. No tenderness, no organomegaly, no masses. EXTREMITIES: No cyanosis, no clubbing, no edema. CENTRAL NERVOUS SYSTEM: Alert, awake, oriented x 2. No neurological deficits could be appreciated. ASSESSMENT: Persistent hematuria, history of cancer of prostate, status post urinary retention, dehy dration. PLAN: Will give patient IV fluids. Monitor hemoglobin and hematocrit. Follow up recommendations of urologist. Discussed patient's condition with oncologist today. [facility] cc: [phone] TT: 03/15/2017 15:37:33 Confirmation # [id number] Dictation # [id number] candis
[2017-03-15] MEDS: Sodium Chloride 0.9% 1,000 ML IV SCH (17:17)
--- NOTE | 2017-03-15 18:02 | CP.PCM.CON ---
History of Present Illness - History of Present Illness History of Present Illness: PATIENT SEEN .FULL CONSULT DICTATED. Past Patient History - Infectious Disease Hx of Infectious Diseases: None - Past Medical History & Family History Past Medical History?: Yes - Past Social History Smoking Status: Smoker Currrent Status Unknown - CARDIAC Hx Hypertension: Yes - PULMONARY Hx Respiratory Disorders: No - NEUROLOGICAL Hx Neurological Disorder: No - HEENT Hx HEENT Problems: Yes Other/Comment: WEAR EYEGLASSES FOR READING - RENAL Hx Chronic Kidney Disease: No - ENDOCRINE/METABOLIC Hx Endocrine Disorders: No - HEMATOLOGICAL/ONCOLOGICAL Hx Blood Disorders: No - INTEGUMENTARY Hx Dermatological Problems: No - MUSCULOSKELETAL/RHEUMATOLOGICAL Hx Musculoskeletal Disorders: No Hx Falls: No - GASTROINTESTINAL Hx Gastrointestinal Disorders: No - GENITOURINARY/GYNECOLOGICAL Hx Genitourinary Disorders: Yes Hx Hematuria: Yes Hx Prostate Problems: Yes - PSYCHIATRIC Hx Psychophysiologic Disorder: No Hx Substance Use: No - SURGICAL HISTORY Hx Surgeries: Yes Hx Cholecystectomy: Yes Hx Coronary Stent: Yes - ANESTHESIA Hx Anesthesia: Yes Hx Anesthesia Reactions: No Hx Malignant Hyperthermia: No Has any member of the family had a problem w/ anesthesia?: No Meds Allergies/Adverse Reactions: Allergies Allergy/AdvReac Type Severity Reaction Status Date / Time No Known Allergies Allergy Verified 02/22/17 09:05 - Medications Medications: Current Medications Acetaminophen (Tylenol 325mg Tab) 650 mg PO Q6 PRN PRN Reason: Pain, Mild (1-3) Amlodipine Besylate (Norvasc) 10 mg PO DAILY [facility] Last Admin: 03/15/17 09:56 Dose: 10 mg Clopidogrel Bisulfate (Plavix) 75 mg PO DAILY [facility] Last Admin: 03/15/17 09:56 Dose: 75 mg Famotidine (Pepcid) 20 mg PO DAILY [facility] Last Admin: 03/15/17 09:56 Dose: 20 mg Finasteride (Proscar) 5 mg PO DAILY [facility] Last Admin: 03/15/17 09:56 Dose: 5 mg Sodium Chloride (Sodium Chloride 0.9%) 1,000 mls @ 60 mls/hr IV .[id number] [facility] Last Admin: 03/15/17 17:17 Dose: 60 mls/hr Losartan Potassium (Cozaar) 100 mg PO DAILY [facility] Last Admin: 03/15/17 09:55 Dose: 100 mg Metoprolol Tartrate (Lopressor) 25 mg PO DAILY [facility] Last Admin: 04/21/17 09:55 Dose: Not Given Multivitamins (Hexavitamin) 1 tab PO DAILY [facility] Last Admin: 03/15/17 09:55 Dose: 1 tab Potassium Chloride (K-Dur 20 Meq Er Tab) 40 meq PO DAILY [facility] Last Admin: 03/15/17 09:55 Dose: 40 meq Rosuvastatin Calcium (Crestor) 5 mg PO HS [facility] Last Admin: 03/14/17 22:16 Dose: 5 mg Results - Vital Signs Recent Vital Signs: Last Vital Signs Temp 98.1 F 03/15/17 16:14 Pulse 71 03/15/17 16:14 Resp 20 03/15/17 16:14 BP 119/62 03/15/17 16:14 Pulse Ox 98 03/15/17 16:14 - Labs Result Diagrams: 03/15/17 07:17 03/15/17 07:17 Labs: Laboratory Results - last 24 hr 03/15/17 07:17 WBC 7.1 RBC 3.41 L Hgb 11.0 L Hct 32.7 L MCV 96.1 H MCH 32.2 H MCHC 33.5 RDW 15.0 H Plt Count 290 MPV 8.6 Neut % (Auto) 68.4 Lymph % (Auto) 15.8 L [place] % (Auto) 10.3 H Eos % (Auto) 4.9 H Baso % (Auto) 0.6 Neut # 4.9 Lymph # 1.1 [place] # 0.7 Eos # 0.3 Baso # 0.0 Sodium 139 Potassium 3.8 Chloride 101 Carbon Dioxide 28 Anion Gap 14 BUN 15 Creatinine 1.3 Est GFR ( Amer) > 60 Est GFR (Non-Af Amer) 52 Random Glucose 95 Calcium 7.8 L
--- NOTE | 2017-03-16 03:15 | PCM.URO ---
Urology Progress Note - Objective Lab Results Last 24 Hours: Laboratory Results - last 24 hr 03/15/17 07:17 WBC 7.1 RBC 3.41 L Hgb 11.0 L Hct 32.7 L MCV 96.1 H MCH 32.2 H MCHC 33.5 RDW 15.0 H Plt Count 290 MPV 8.6 Neut % (Auto) 68.4 Lymph % (Auto) 15.8 L [place] % (Auto) 10.3 H Eos % (Auto) 4.9 H Baso % (Auto) 0.6 Neut # 4.9 Lymph # 1.1 [place] # 0.7 Eos # 0.3 Baso # 0.0 Sodium 139 Potassium 3.8 Chloride 101 Carbon Dioxide 28 Anion Gap 14 BUN 15 Creatinine 1.3 Est GFR ( Amer) > 60 Est GFR (Non-Af Amer) 52 Random Glucose 95 Calcium 7.8 L Intake & Output: Intake & Output 03/15/17 03/15/17 03/16/17 06:59 18:59 06:59 Intake Total 720 300 700 Output Total 1000 700 350 Balance -280 -400 350 Intake: Intake, IV Amount 300 Right Antecubital 300 Oral 720 300 400 Output: Urine 1000 700 350 Urine, Voided 1000 700 350 Other: # Voids Urine, Voided 1 6 # Bowel Movements 0 Vital Signs: Vital Signs - 24 hr 03/15/17 03/15/17 03/15/17 09:12 09:15 09:55 Temperature 97.0 F L Pulse Rate 54 L 54 L Respiratory 20 Rate Blood Pressure 149/69 131/62 O2 Sat by Pulse 95 Oximetry 03/15/17 03/15/17 03/16/17 16:14 23:00 00:35 Temperature 98.1 F 98 F 98 F Pulse Rate 71 59 L 55 L Respiratory 20 20 20 Rate Blood Pressure 119/62 159/76 H 159/70 H O2 Sat by Pulse 98 97 97 Oximetry
[2017-03-16 06:22] LABS: BASO # 0.1 K/uL (0.0-0.2); BASO % 0.7 % (0.0-2.0); EOS # 0.4 K/uL (0.0-0.7); EOS % 5.3 % (0.0-4.0); HEMATOCRIT 32.2 % (35.0-51.0); LYMPH # 1.2 K/uL (1.0-4.3); LYMPH % 16.5 % (20.0-40.0); MEAN CELL VOLUME 96.7 fL (80.0-94.0); MEAN CORPUSCULAR HGB CONC 33.1 g/dL (33.0-37.0); MEAN PLATELET VOLUME 8.9 fL (7.2-11.7); MONO # 0.8 K/uL (0.0-0.8); MONO % 10.6 % (0.0-10.0); NRBC % 0.1 % (0.0-2.0); RED CELL DISTRIBUTION WIDTH 15.5 % (11.5-14.5); WHITE BLOOD COUNT 7.6 K/uL (4.8-10.8)
[2017-03-16 06:23] LABS: CHLORIDE 104 mmol/L (98-107); SODIUM 142 mmol/L (132-148)
[2017-03-16 06:25] LABS: BILIRUBIN,TOTAL 0.3 mg/dL (0.2-1.3); GFR AFRICAN-AMERICAN > 60
[2017-03-16 06:26] LABS: ALB/GLOB RATIO 1.2 (1.0-2.1); ALKALINE PHOSPHATASE 72 U/L (38-126); ALT/SGPT 15 U/L (21-72); AST/SGOT 25 U/L (17-59); BLOOD UREA NITROGEN 13 mg/dL (9-20); CARBON DIOXIDE 26 mmol/L (22-30); GLUCOSE,RANDOM 89 mg/dL (75-110); TOTAL PROTEIN 6.3 g/dL (6.3-8.3)
[2017-03-16 06:27] LABS: CALCIUM 7.9 mg/dl (8.6-10.4)
[2017-03-16 06:28] LABS: POTASSIUM 3.8 mmol/L (3.6-5.2)
--- NOTE | 2017-03-16 07:15 | PN ---
DATE: 03/16/2017 The patient is now resting comfortably. Voiding better. The previous dictated consult notes and the consult note from Dr. Wagoner are noted. From a urology standpoint, the patient is voiding better. PAST MEDICAL AND SURGICAL HISTORY: As listed above. PHYSICAL EXAMINATION: No changes. DIAGNOSES: Urinary retention, prostate cancer, gross hematuria. PLAN: As follows: We are going to continue to follow along while the patient is here and then subse quent outpatient followup, either with me or his primary urologist. Brent Gill MD cc: [phone] TT: 03/16/2017 07:14:11 Confirmation # [id number] Dictation # [id number] tn
--- NOTE | 2017-03-16 07:15 | PN ---
DATE: 03/16/2017 ADDENDUM This is a urology addendum to my previously dictated progress note of 03/16. The patient is scheduled for a bone scan today. I agree with that plan. Regarding the recurrence of his hematuria, I am going to add Proscar/finasteride 5 mg p.o. every day. Then further plans will follow. We will see if the urine will clear up. The patient may require cystoscopic evaluation. We will have to see how he does clinically. Brent Gill MD cc: [phone] TT: 03/16/2017 07:14:14 Confirmation # [id number] Dictation # [id number] dn
[2017-03-16] MEDS: Sodium Chloride 0.9% 1,000 ML IV SCH ×2 (07:40→11:53)
--- NOTE | 2017-03-16 09:27 | CON ---
DATE: 03/13/2017 REASON FOR CONSULTATION: Hematuria. HISTORY OF PRESENT ILLNESS: This is a very pleasant gentleman who previously for urinary retention u nderwent a TURP. We found prostate cancer at that time. He was voiding well and doing well. I actu anibaly saw him in the office last , but I received a phone call from the son that he was jessi gonzalez. We brought him back to the Emergency Room. Inserted a Fuller catheter. Urology consulted, but n ow he has a Fuller catheter that is draining blood-tinged urine. He also was in retention. PAST MEDICAL AND SURGICAL HISTORY: As listed on the chart. He is a patient of Dr. Buenrostro. REVIEW OF SYSTEMS: Listed above. PHYSICAL EXAMINATION: GENERAL: Well-nourished male, in no apparent distress, currently resting comfortably. ABDOMEN: Sof t. Fuller catheter in place. LABORATORIES: See chart. DIAGNOSES: Urinary retention, gross hematuria, prostate cancer. Specifically, a very pleasant gentleman. He is 86 years old. I discussed with the son, the son did not have a chance to read the reading material I provided for him in the office. We discussed options, including the possibility that he may return to his primary urologist. But the possibility for Lupron therapy is existing. We will discuss the possibility for radiation therapy. Will also discuss medical consultation. I will discuss this with Dr. Buenrostro. In the interim for the urinary retention, leave the Fuller catheter in for now, give a day or 2, make sure his bowel movements are working better. He has been constipated and not having bowel movements. Once he is better, we will give voiding trial. DIAGNOSES: 1. Urinary retention. 2. Prostate cancer, [place] grade 8-9, high grade cancer. 3. Gross hematuria. PLAN: Leave the Fuller catheter. Make sure the patient had bowel movement and then a trial of void. Brent Gill MD cc: [phone] TT: 03/16/2017 09:26:27 Confirmation # [id number] Dictation # [id number] vitaliy
[2017-03-16] MEDS: Multiple Vitamins Tab PO SCH (10:01)
[2017-03-16] MEDS: Potassium Chloride 20 mEq ER Tab PO SCH (10:02)
--- NOTE | 2017-03-16 14:24 | PN ---
DATE: 03/16/2017 SUBJECTIVE: The patient is seen today 03/16/2017. He is still having hematuria. PHYSICAL EXAMINATION: VITAL SIGNS: Blood pressure 129/68, temperature 98.2, respiratory rate 20, and pulse 68. HEENT: Pupils equal, reactive to light. Normal-appearing mucosa of the conjunctivae, oropharyngeal and nasal membrane mucosa. NECK: Supple, no JVD, no carotid bruit, no lymph node, no thyromegaly. CHEST AND LUNGS: Bilateral symmetrical expansion, good air exchange, no rales, no rhonchi. CARDIOVASCULAR: PMI not localized. S1, S2. No additional sounds. ABDOMEN: Normoactive bowel sounds, no tenderness, no organomegaly, no masses. EXTREMITIES: No cyanosis, no clubbing, no edema. CENTRAL NERVOUS SYSTEM: Alert, awake, oriented x 2. No neurological deficits could be appreciated. ASSESSMENT: 1. Cancer of prostate with hematuria. 2. Status post transurethral resection of prostate. 3. Hypertension. 4. Degenerative spine disease. PLAN: Monitor hemoglobin and hematocrit. A bone scan to rule out metastatic cancer disease. Follow up urology and oncology recommendations. Continue current medications. Discussed with patient's erick ghter and son at the bedside. Jeanne Buenrostro MD cc: [phone] TT: 03/16/2017 14:23:59 Confirmation # [id number] Dictation # [id number] vitaliy
[2017-03-17] MEDS: Sodium Chloride 0.9% 1,000 ML IV SCH ×2 (00:51→05:15)
[2017-03-17 08:13] LABS: BASO % 0.5 % (0.0-2.0); EOS # 0.3 K/uL (0.0-0.7); EOS % 3.8 % (0.0-4.0); HEMATOCRIT 33.9 % (35.0-51.0); LYMPH # 1.3 K/uL (1.0-4.3); LYMPH % 15.9 % (20.0-40.0); MEAN CORPUSCULAR HEMOGLOBIN 32.6 pg (27.0-31.0); MEAN CORPUSCULAR HGB CONC 33.6 g/dL (33.0-37.0); MEAN PLATELET VOLUME 8.9 fL (7.2-11.7); MONO # 0.8 K/uL (0.0-0.8); MONO % 9.1 % (0.0-10.0); WHITE BLOOD COUNT 8.5 K/uL (4.8-10.8)
[2017-03-17] MEDS: Multiple Vitamins Tab PO SCH (09:48)
[2017-03-17] MEDS: Potassium Chloride 20 mEq ER Tab PO SCH (09:48)
[2017-03-18] MEDS: Sodium Chloride 0.9% 1,000 ML IV SCH ×3 (00:13→17:15)
[2017-03-18 01:06] VITALS: RESP 20
--- NOTE | 2017-03-18 07:57 | NM ---
PROCEDURE: Whole Body Bone Scan HISTORY: R/O METASTATIC COMPARISON: None available. TECHNIQUE: Following administration of 24.6 miCu of Tc MDP multiplanar whole body images were obtained. FINDINGS: Evidence for bony metastatic disease: Increased uptake posterior right 8th rib, super acetabular region on the left, left iliac bone, sternum consistent with osseous metastatic disease. Degenerative uptake: None. Physiologic uptake: Normal physiologic activity in the kidneys. Other findings: None. 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
--- NOTE | 2017-03-18 08:57 | PN ---
DATE: 03/17/2017 SUBJECTIVE: The patient is seen today, 03/17/2017. He is not in any cardiopulmonary distress. . PHYSICAL EXAMINATION: VITAL SIGNS: Blood pressure 143/73, temperature 97.8, respiratory rate 18, and pulse 62. HEENT: Pupil equal, reacts to light. Normal-appearing mucosa of the conjunctivae. NECK: Supple. No JVD. No CB. No thyromegaly. CHEST AND LUNGS: Bilateral symmetrical expansion, good air exchange, no rales, no rhonchi. CARDIOVASCULAR: PMI not localized , S1-S2 , no. additional sounds. ABDOMEN: bowel sounds, no tenderness, no organomegaly, no masses. EXTREMITIES: No cyanosis, No clubbing , No edema. CENTRAL NERVOUS SYSTEM, awake, oriented x 2. . ASSESSMENT: 1. Urinary retention. 2. Hematuria. 3. HTN. 4. Degenerative spine disease. PLAN: Continue current medications , and follow oncology and urology recommendations. Jeanne Buenrostro MD cc: [phone] TT: 03/17/2017 22:39:07 Confirmation # [id number] Dictation # [id number] MTDD
[2017-03-18] MEDS: Multiple Vitamins Tab PO SCH (09:41)
[2017-03-18] MEDS: Potassium Chloride 20 mEq ER Tab PO SCH (09:42)
--- NOTE | 2017-03-18 14:31 | PCM.URO ---
Urology Progress Note - Objective Intake & Output: Intake & Output 03/17/17 03/18/17 03/18/17 18:59 06:59 18:59 Intake Total 960 1460 Output Total 1575 Balance 960 -115 Intake: Intake, IV Amount 480 960 Right Antecubital 480 960 Oral 480 500 Output: Urine 1575 Urethral (Fuller) 100 Urine, Voided 1475 Other: # Voids Urethral (Fuller) 2 Urine, Voided 3 Vital Signs: Vital Signs - 24 hr 03/17/17 03/18/17 03/18/17 23:00 04:08 09:10 Temperature 98 F 97.9 F 97.9 F Pulse Rate 56 L 64 53 L Respiratory 20 20 20 Rate Blood Pressure 158/65 H 152/80 H 160/66 H O2 Sat by Pulse 96 96 97 Oximetry 03/18/17 09:41 Temperature Pulse Rate Respiratory Rate Blood Pressure 160/66 H O2 Sat by Pulse Oximetry
--- NOTE | 2017-03-18 16:58 | PN ---
DATE: 03/18/2017 See the previously dictated notes. The patient is resting comfortably. He reports voiding. He reports since he had the injection for th e bone scan, he feels like he has been voiding with more frequency. See the previous notes. His uri ne is clearing up but he has been going more frequently. We did a postvoid; it is 200 mL. See below . PAST MEDICAL AND SURGICAL HISTORY: All listed. PHYSICAL EXAMINATION: Abdomen is relatively soft. DIAGNOSES: 1. Urinary retention, but really this is a soft call. 2. Hematuria. 3. Prostate cancer. In summary, then a very pleasant 87-year-old gentleman. Family is at the bedside. I discussed optio ns with the patient and the family. At this point, we are not going to insert a Fuller catheter. We are going to monitor him closely. Encourage p.o. fluids, encourage timed voiding and then we will se e how he does clinically, and then we will make further plans. So, in the interim the plan is as follows: Observation. We are waiting to see the input from Dr. Rodriguez manrique from oncology, and then further plans to follow. Brent Gill MD cc: [id number] TT: 03/18/2017 16:57:29 Confirmation # [id number] Dictation # [id number] mn
--- NOTE | 2017-03-18 17:06 | PN ---
DATE: 03/17/2017 CHIEF COMPLAINT: Voiding difficulty. HISTORY OF PRESENT ILLNESS: A very pleasant gentleman. Has got a history of prostate cancer, just rec ently diagnosed by me on a TURP with a [place] 8 or 9. Came back in with urinary retention and hematu shayla. This has now mostly cleared up but we are still dealing with the issue with voiding dysfunction , but we provided him a voiding trial. PAST MEDICAL AND SURGICAL HISTORY: As listed. PHYSICAL EXAMINATION: No apparent distress. DIAGNOSES: Urinary retention, prostate cancer, hematuria, voiding dysfunction. PLAN: As follows: We are going to monitor the patient. The hematuria is clearing. Putting the patie nt on Proscar for the bleeding. We are waiting for Dr. from oncology regarding the bone scan an d then further recommendations. RT versus radiation versus observation all are very recent options. N o surgical intervention planned further. Regarding his retention and the hematuria, we are going to just monitor the patient for now. Encourage stool softeners. So the plan is as follows: 1. Keep the Fuller catheter out. 2. Monitor the patient closely and then make further plans. Brent Gill MD cc: [id number] TT: 03/18/2017 17:05:56 Confirmation # [id number] Dictation # [id number] ln
--- NOTE | 2017-03-18 18:27 | PN ---
DATE: 03/18/2017 SUBJECTIVE: The patient is seen today 03/18/2017. He is not in any cardiopulmonary distress, and th e patient is stating that the urine is getting more clear. PHYSICAL EXAMINATION: VITAL SIGNS: Blood pressure 145/61, temperature 98.4, respiratory rate 20, and pulse 51. HEENT: Pupils equal, reactive to light. Normal-appearing mucosa of the conjunctivae, oropharyngeal and nasal membrane mucosa. NECK: No JVD, no carotid bruit, no lymph node, no thyromegaly. CHEST AND LUNGS: Bilateral symmetrical expansion, good air exchange, no rales, no rhonchi. CARDIOVASCULAR: PMI not localized. S1, S2. No additional sounds. ABDOMEN: Normoactive bowel sounds, no tenderness, no organomegaly, no masses. EXTREMITIES: No cyanosis, no clubbing, no edema. CENTRAL NERVOUS SYSTEM: Alert, awake, oriented x 2. No neurological deficits could be appreciated. ASSESSMENT: 1. Hematuria. 2. Cancer of prostate. 3. Status post TURP. 4. Hypertension. 5. Degenerative spine disease. PLAN: Continue current management and follow hematology and urology results. Bone scan results are positive for metastatic disease in the pelvis, sternum and ribs. We will follow oncology and urology recommendations. Jeanne Buenrostro MD cc: [id number] TT: 03/18/2017 18:26:53 Confirmation # [id number] Dictation # [id number] mn
[2017-03-19] MEDS: Multiple Vitamins Tab PO SCH (09:53)
[2017-03-19] MEDS: Potassium Chloride 20 mEq ER Tab PO SCH ×2 (09:53→12:25)
[2017-03-19 11:15] LABS: BASO % 0.6 % (0.0-2.0); EOS # 0.2 K/uL (0.0-0.7); HEMATOCRIT 34.8 % (35.0-51.0); LYMPH # 1.3 K/uL (1.0-4.3); LYMPH % 16.4 % (20.0-40.0); MEAN CORPUSCULAR HEMOGLOBIN 32.7 pg (27.0-31.0); MEAN CORPUSCULAR HGB CONC 33.7 g/dL (33.0-37.0); MEAN PLATELET VOLUME 8.9 fL (7.2-11.7); MONO # 0.7 K/uL (0.0-0.8); MONO % 9.7 % (0.0-10.0); RED CELL DISTRIBUTION WIDTH 15.6 % (11.5-14.5); WHITE BLOOD COUNT 7.7 K/uL (4.8-10.8)
[2017-03-19 11:28] LABS: CHLORIDE 103 mmol/L (98-107); SODIUM 139 mmol/L (132-148)
[2017-03-19 11:29] LABS: POTASSIUM 3.8 mmol/L (3.6-5.2)
[2017-03-19 11:31] LABS: GFR AFRICAN-AMERICAN > 60
[2017-03-19 11:32] LABS: BLOOD UREA NITROGEN 17 mg/dL (9-20); CALCIUM 8.3 mg/dl (8.6-10.4); CARBON DIOXIDE 25 mmol/L (22-30); GLUCOSE,RANDOM 124 mg/dL (75-110)
[2017-03-19 16:13] VITALS: BP 159/65; PULSE 68; TEMP 97; O2SAT 97
--- NOTE | 2017-03-19 17:01 | CP.PCM.PN ---
Subjective - Date & Time of Evaluation Date of Evaluation: 03/19/17 Time of Evaluation: 14:20 - Subjective Subjective: Pt seen and examined at bed side , states feels better, voiding without problems , denies any abdominal pain, dysuria , N/V/D urine pinkish, color, reported blood clots in urine Objective - Vital Signs/Intake and Output Vital Signs (last 24 hours): Temp Pulse Resp BP Pulse Ox 97 F L 68 20 159/65 H 97 03/19/17 16:00 03/19/17 16:00 03/19/17 16:00 03/19/17 16:00 03/19/17 16:00 Intake and Output: 03/19/17 03/19/17 06:59 18:59 Intake Total 860 600 Output Total 850 500 Balance 10 100 - Medications Medications: Current Medications Acetaminophen (Tylenol 325mg Tab) 650 mg PO Q6 PRN PRN Reason: Pain, Mild (1-3) Amlodipine Besylate (Norvasc) 10 mg PO DAILY [facility] Last Admin: 03/19/17 09:53 Dose: 10 mg Clopidogrel Bisulfate (Plavix) 75 mg PO DAILY [facility] Last Admin: 03/19/17 09:53 Dose: 75 mg Famotidine (Pepcid) 20 mg PO DAILY [facility] Last Admin: 03/19/17 10:09 Dose: 20 mg Finasteride (Proscar) 5 mg PO DAILY [facility] Last Admin: 03/19/17 09:53 Dose: 5 mg Losartan Potassium (Cozaar) 100 mg PO DAILY [facility] Last Admin: 03/19/17 09:53 Dose: 100 mg Metoprolol Tartrate (Lopressor) 25 mg PO DAILY [facility] Last Admin: 03/19/17 09:54 Dose: Not Given Multivitamins (Hexavitamin) 1 tab PO DAILY [facility] Last Admin: 03/19/17 09:53 Dose: 1 tab Potassium Chloride (K-Dur 20 Meq Er Tab) 40 meq PO DAILY [facility] Last Admin: 03/19/17 12:25 Dose: 40 meq Rosuvastatin Calcium (Crestor) 5 mg PO HS [facility] Last Admin: 03/18/17 21:25 Dose: 5 mg - Labs Labs: 03/19/17 11:04 03/19/17 11:04 Assessment and Plan - Assessment and Plan (Free Text) Assessment: A/P 86 YR OLD male admitted for urinary retention/ hematuria s/p TURP f/c discontinued an d pat voiding without any problems urine pinkish without any clots D/W Dr. Gill. E, cleared for discharge home today from urology standpoint an df/u with Dr. Gill office in 1 week D/W Dr. Buenrostro, stable for discharge home today and f/u with Dr. Buenrostro office in [address] Hunt office on saturday Discharge plan discussed with pateint, son joshua reinafe at bed felipe e, who understands and agrees with plan Pt instructed to returns to ED if symptoms returns , or any other concerning symptoms
--- NOTE | 2017-03-20 11:26 | DS ---
REASON FOR ADMISSION: This is an 86 years old male with history of multiple medical problem s who was admitted for urinary retention and hematuria. COURSE OF HOSPITALIZATION: The patient was admitted to medical floor and he was followed by urology as well as oncology. The patient had a bone scan that showed multiple bone metastases. The patient was recently diagnosed with prostate cancer after a TURP in last admission. The patient was discharg ed to follow up with both urology and oncology within 4 days. Discussed the patient's condition and the need for followup with his daughter over the phone. FINAL DIAGNOSES: 1. Metastatic cancer of prostate. 2. Hypertension. 3. Degenerative spine disease. Alex Sofía Buenrostro MD cc: [phone] TT: 03/20/2017 11:25:28 in
== END 2017-03-19 17:30 | disposition home or self-care (01) | DRG 696 ==
LOC: C.ER 20:15 → C.6T 23:56 → OBSVTOIN 03-13 16:31
PROVIDERS: ADMIT Internal Medicine; ATTEND Internal Medicine
DX: R33.8 Other retention of urine (principal); R31.0 Gross hematuria; N39.0 Urinary tract infection, site not specified; C61 Malignant neoplasm of prostate; E86.0 Dehydration; I10 Essential (primary) hypertension; F17.210 Nicotine dependence, cigarettes, uncomplicated; Z90.49 Acquired absence of other specified parts of digestive tract; Z95.5 Presence of coronary angioplasty implant and graft; M19.90 Unspecified osteoarthritis, unspecified site; L60.2 Onychogryphosis; M47.9 Spondylosis, unspecified; Z98.890 Other specified postprocedural states

== ENCOUNTER 2017-03-21 11:42 | Emergency (ER) | payer MEDICARE, OTHER ==
[2017-03-21 13:19] LABS: BASO % 0.6 % (0.0-2.0); EOS # 0.1 K/uL (0.0-0.7); EOS % 1.9 % (0.0-4.0); HEMATOCRIT 30.8 % (35.0-51.0); LYMPH # 0.8 K/uL (1.0-4.3); LYMPH % 11.7 % (20.0-40.0); MEAN CELL VOLUME 97.6 fL (80.0-94.0); MEAN CORPUSCULAR HEMOGLOBIN 32.6 pg (27.0-31.0); MEAN CORPUSCULAR HGB CONC 33.4 g/dL (33.0-37.0); MEAN PLATELET VOLUME 8.4 fL (7.2-11.7); MONO # 0.9 K/uL (0.0-0.8); MONO % 12.6 % (0.0-10.0); RED CELL DISTRIBUTION WIDTH 15.6 % (11.5-14.5); WHITE BLOOD COUNT 7.1 K/uL (4.8-10.8)
[2017-03-21 13:24] LABS: POTASSIUM 4.4 mmol/L (3.6-5.2)
[2017-03-21 13:26] LABS: ALB/GLOB RATIO 1.2 (1.0-2.1); BILIRUBIN,TOTAL 0.6 mg/dL (0.2-1.3); TOTAL PROTEIN 6.5 g/dL (6.3-8.3)
[2017-03-21 13:53] LABS: RBC URINE 7795 /hpf (0-3); URINE BILIRUBIN NEGATIVE (NEGATIVE); URINE BLOOD 2+ (NEGATIVE); URINE COLOR Red (YELLOW); URINE GLUCOSE (UA) NORMAL (Normal); URINE KETONE NEGATIVE (NEGATIVE); URINE LEUKOCYTE ESTERASE TRACE Leu/uL (Negative); URINE PROTEIN 1+ mg/dL (NEGATIVE); URINE UROBILINOGEN NORMAL mg/dL (0.2-1.0); WBC URINE 25 /hpf (0-5)
--- NOTE | 2017-03-21 14:29 | C.PDOC ---
History Of Present Illness 86 year old male with a history of prostate cancer and s/p recent TURP, presents to the ED with complaints of passing blood clots while urinating this morning. Patient was recently discharged on 03/19/17 for urinary retention, hematuria, and TURP. He has no other complaints at this time. Time Seen by Provider: 03/21/17 12:04 Chief Complaint (Nursing): Male Genitourinary History Per: Patient History/Exam Limitations: no limitations Onset/Duration Of Symptoms: Hrs Current Symptoms Are (Timing): Still Present Severity: Mild Associated Symptoms: denies: Fever, Chills, Nausea, Vomiting, Back Pain Past Medical History Reviewed: Historical Data, Nursing Documentation, Vital Signs Vital Signs: Last Vital Signs Temp 98.1 F 03/21/17 15:54 Pulse 69 03/21/17 15:54 Resp 20 03/21/17 15:54 BP 131/62 03/21/17 15:54 Pulse Ox 98 03/21/17 16:23 - Medical History PMH: HTN Surgical History: Cholecystectomy, Coronary Stent - [facility] Procedures RESECTION OF PROSTATE, ENDO (02/25/17) Family History: States: Unknown Family Hx - Social History Hx Tobacco Use: Yes Hx Alcohol Use: No Hx Substance Use: No - Immunization History Hx Tetanus Toxoid Vaccination: No Hx Influenza Vaccination: Yes Hx Pneumococcal Vaccination: Yes Review Of Systems Except As Marked, All Systems Reviewed And Found Negative. Constitutional: Negative for: Fever, Chills Gastrointestinal: Negative for: Nausea, Vomiting, Abdominal Pain, Diarrhea Genitourinary: Positive for: Other (+Blood clots). Negative for: Dysuria, Frequency, Incontinence, Scrotal Pain Musculoskeletal: Negative for: Back Pain Neurological: Negative for: Weakness, Numbness Physical Exam - Physical Exam Appears: Non-toxic, No Acute Distress Skin: Normal Color, Warm, Dry Head: Atraumatic, Normacephalic Eye(s): bilateral: Normal Inspection Oral Mucosa: Moist Chest: Symmetrical, No Deformity Cardiovascular: Rhythm Regular Respiratory: Normal Breath Sounds, No Accessory Muscle Use Gastrointestinal/Abdominal: Soft, No Tenderness, No Distention, No Guarding, No Rebound Male Genital: Normal Inspection Extremity: Normal ROM Neurological/Psych: Oriented x3, Normal Speech, Normal Cognition ED Course And Treatment - Laboratory Results Result Diagrams: 03/21/17 13:10 03/21/17 13:10 O2 Sat by Pulse Oximetry: 98 (Room air) Pulse Ox Interpretation: Normal Progress Note: Blood work and Urinalysis ordered and reviewed. Bladder scan performed showing 40 cc of residual urine. Bladder irrigated and young placed. Case discussed with Dr. Gill and who accepted patient to his ervice for admission. Patient's son arrived at the ED and spoke to Dr. Gill on a phone, and wants to take the patient home and have him follow up with Dr. Gill tomorrow. Case was d/w again who agreed with this plan. Patient was d/c with a leg bag. Disposition - Disposition Referrals: Max Gill MD [Staff Provider] - Disposition: HOME/ ROUTINE Disposition Time: 15:32 Condition: STABLE Additional Instructions: Follow up with tomorrow as scheduled. Return to Ed if feel worse. Instructions: Acute Hematuria (ED) - Clinical Impression Clinical Impression: Prostate cancer, S/P TURP (status post transurethral resection of prostate), Gross hematuria - PA / CLINICAL CODER / Resident Statement MD/DO has reviewed & agrees with the documentation as recorded. - Scribe Statement The provider has reviewed the documentation as recorded by the Scribe Jing Soares. All medical record entries made by the Scribe were at my direction and personally dictated by me. I have reviewed the chart and agree that the record accurately reflects my personal performance of the history, physical exam, medical decision making, and the department course for this patient. I have also personally directed, reviewed, and agree with the discharge instructions and disposition.
[2017-03-21 15:55] VITALS: BP 131/62; PULSE 69; RESP 20; TEMP 98.1
[2017-03-21 16:18] VITALS: O2SAT 98
== END 2017-03-21 16:56 | disposition home or self-care (01) ==
LOC: C.ER 11:42 → UNDOADMOB 15:28 → C.9E 15:28
DX: R31.0 Gross hematuria (principal); Z98.890 Other specified postprocedural states; Z85.46 Personal history of malignant neoplasm of prostate

== ENCOUNTER 2017-03-22 14:22 | Inpatient (IN) | payer MEDICARE, OTHER ==
--- NOTE | 2017-03-22 14:54 | C.PDOC ---
History Of Present Illness 86 y/o male, with PMHx of prostate cancer, TURP on 02/25/17, presents to ED with c /o hematuria. Patient seen yesterday in ER for hematuria, where he had Fuller placed and bladder irrigated, and was able to urinate. Family requested that patient be discharged yesterday. Patient returns today with c/o continued hematuria. Patient also c/o right sided mouth pain associated with painful swallowing. Denies fever, chills, chest pain, nausea, vomiting, or shortness of breath. Chief Complaint (Nursing): Medical Clearance History Per: Patient History/Exam Limitations: no limitations Onset/Duration Of Symptoms: Days Current Symptoms Are (Timing): Still Present Reports Recently: Seen In ED Recent travel outside of the [place]: No Past Medical History Reviewed: Historical Data, Nursing Documentation, Vital Signs Vital Signs: Last Vital Signs Temp 98.0 F 03/22/17 14:30 Pulse 62 03/22/17 14:30 Resp 18 03/22/17 14:30 BP 129/62 03/22/17 14:30 Pulse Ox 98 03/22/17 15:26 - Medical History PMH: HTN Surgical History: Cholecystectomy, Coronary Stent - [facility] Procedures RESECTION OF PROSTATE, ENDO (02/25/17) Family History: States: Unknown Family Hx - Social History Hx Tobacco Use: Yes Hx Alcohol Use: No Hx Substance Use: No - Immunization History Hx Tetanus Toxoid Vaccination: No Hx Influenza Vaccination: Yes Hx Pneumococcal Vaccination: Yes Review Of Systems Except As Marked, All Systems Reviewed And Found Negative. Constitutional: Negative for: Fever, Chills Cardiovascular: Negative for: Chest Pain Respiratory: Negative for: Cough, Shortness of Breath, Wheezing Gastrointestinal: Negative for: Nausea, Vomiting, Diarrhea Genitourinary: Positive for: Hematuria Skin: Negative for: Rash Neurological: Negative for: Headache, Dizziness Physical Exam - Physical Exam Appears: Non-toxic, No Acute Distress Skin: Warm, Dry Head: Atraumatic, Normacephalic Oral Mucosa: Moist Chest: Symmetrical Cardiovascular: Rhythm Regular Respiratory: Normal Breath Sounds, No Rales, No Rhonchi, No Wheezing Gastrointestinal/Abdominal: Soft, Tenderness (tender lower abdomen, tender small mass to left side ) Back: Normal Inspection Male Genital: Other (Fuller in place, flowing gross hematuria) Extremity: Normal ROM, Capillary Refill (< 2 sec. ) Neurological/Psych: Oriented x3, Normal Speech, Normal Cognition ED Course And Treatment - Laboratory Results Result Diagrams: 03/22/17 15:52 03/22/17 15:52 O2 Sat by Pulse Oximetry: 98 (RA) Pulse Ox Interpretation: Normal Medical Decision Making Medical Decision Making: Plan: * Labs * Reassess Progress: Discussed with Dr. Gill, questioning admission, will eval pt in ED. Disposition Discussed With Dr.: Jeanne Buenrostro Counseled Patient/Family Regarding: Studies Performed, Diagnosis - Disposition Disposition: HOSPITALIZED Disposition Time: 16:49 Condition: STABLE - Clinical Impression Clinical Impression: Gross hematuria, Dizziness - Scribe Statement The provider has reviewed the documentation as recorded by the Nicky Hummel Provider Scribe Attestation: All medical record entries made by the Treyibe were at my direction and personally dictated by me. I have reviewed the chart and agree that the record accurately reflects my personal performance of the history, physical exam, medical decision making, and the department course for this patient. I have also personally directed, reviewed, and agree with the discharge instructions and disposition. Decision To Admit - Pt Status Changed To: Hospital Disposition Of: Observation - InPatient: Physician Admission Certification: I certify that this patient requires 2 or more midnights of care for the following reason:: needs bladder irrigation - . Bed Request Type: Regular Patient Diagnosis: Gross hematuria, Dizziness
[2017-03-22 16:03] LABS: BASO % 0.2 % (0.0-2.0); EOS % 0.2 % (0.0-4.0); LYMPH # 0.8 K/uL (1.0-4.3); LYMPH % 5.4 % (20.0-40.0); MEAN CELL VOLUME 97.7 fL (80.0-94.0); MEAN CORPUSCULAR HEMOGLOBIN 31.8 pg (27.0-31.0); MEAN CORPUSCULAR HGB CONC 32.5 g/dL (33.0-37.0); MEAN PLATELET VOLUME 8.8 fL (7.2-11.7); MONO # 1.6 K/uL (0.0-0.8); MONO % 11.2 % (0.0-10.0); PLATELET COUNT 238 K/uL (130-400); RED CELL DISTRIBUTION WIDTH 16.1 % (11.5-14.5); WHITE BLOOD COUNT 14.1 K/uL (4.8-10.8)
[2017-03-22 16:07] LABS: CHLORIDE 102 mmol/L (98-107); SODIUM 139 mmol/L (132-148)
[2017-03-22 16:10] LABS: ALB/GLOB RATIO 1.2 (1.0-2.1); ALKALINE PHOSPHATASE 84 U/L (38-126); AST/SGOT 22 U/L (17-59); BILIRUBIN,TOTAL 0.8 mg/dL (0.2-1.3); BLOOD UREA NITROGEN 19 mg/dL (9-20); CARBON DIOXIDE 25 mmol/L (22-30); GFR AFRICAN-AMERICAN > 60; TOTAL PROTEIN 7.2 g/dL (6.3-8.3)
[2017-03-22 16:11] LABS: ALT/SGPT 23 U/L (21-72); CALCIUM 8.2 mg/dl (8.6-10.4); GLUCOSE,RANDOM 105 mg/dL (75-110)
[2017-03-22 16:19] LABS: RBC URINE 4001 /hpf (0-3); URINE BILIRUBIN NEGATIVE (NEGATIVE); URINE COLOR Red (YELLOW); URINE GLUCOSE (UA) 1+ mg/dL (Normal); URINE KETONE NEGATIVE (NEGATIVE); URINE PROTEIN 2+ mg/dL (NEGATIVE); URINE UROBILINOGEN NORMAL mg/dL (0.2-1.0); WBC CLUMPS MANY /hpf; WBC URINE 345 /hpf (0-5)
[2017-03-22 16:25] LABS: URINE BACTERIA MANY (<OCC); URINE BLOOD 3+ (NEGATIVE); URINE LEUKOCYTE ESTERASE 3+ Leu/uL (Negative)
[2017-03-22 17:43] LABS: BASOPHIL 1 % (0-2); NEUTROPHIL 91 % (50-75); TOTAL CELLS COUNTED 100
[2017-03-23] MEDS ORDERED: TRAMADOL 50 MG PO SCH
[2017-03-23] MEDS ORDERED: Pneumococcal 23-Valent Vaccine IM ONE (01:32)
[2017-03-23] MEDS: Multiple Vitamins Tab PO SCH (09:47)
[2017-03-23] MEDS ORDERED: FINASTERIDE 5 MG PO SCH (10:00)
[2017-03-23] MEDS ORDERED: V C FORTE PO SCH (10:00)
--- NOTE | 2017-03-23 10:28 | HP ---
SUBJECTIVE: This is an 86-year-old male with recent diagnosis of metastatic prostate cancer , presented to Emergency Room with symptoms of hematuria. The patient visited Emergency Room on the day of admission for the second time. Urology was consulted and bladder irrigation was started in th e Emergency Room and patient was admitted for further management. The patient denied to have any abd ominal pain or fever or any signs or symptoms of infection. Other review of systems is back pain, wh ich has been chronic. ALLERGIES: No known allergy. HOME MEDICATIONS: Including tramadol 50 mg every 6 hours p.r.n. for pain, Pepcid 20 mg daily, Norvas c 10 mg daily, Flexeril 5 mg at bedtime, Proscar 5 mg daily, Diovan 160 mg daily, Crestor 5 mg daily. SOCIAL HISTORY: Smoker, more than 60 years. No ETOH or substance abuse. PAST MEDICAL HISTORY: Hypertension, degenerative spine disease, status post endovascular procedure f or thoracic aortic aneurysm, recent diagnosis of prostatic cancer. PHYSICAL EXAMINATION: GENERAL: The patient is in bed, not in any cardiopulmonary distress. VITAL SIGNS: Blood pressure 155/63, temperature 98.0, respiratory rate 20, and pulse 67. HEENT: Pupils equal, reactive to light. Normal-appearing mucosa of the conjunctivae, oropharyngeal and nasal membrane mucosa. NECK: Supple, no JVD, no carotid bruit, no lymph node, no thyromegaly. CHEST AND LUNGS: Bilateral symmetrical expansion, good air exchange, no rales, no rhonchi. CARDIOVASCULAR: PMI not localized. S1, S2. No additional sounds. ABDOMEN: Normoactive bowel sounds, no tenderness, no organomegaly, no masses. EXTREMITIES: No cyanosis, no clubbing, no edema. CENTRAL NERVOUS SYSTEM: Alert, awake, oriented x 2. No neurological deficits could be appreciated. LABORATORY DATA: 1. Recurrent hematuria with recent diagnosis of metastatic prostatic cancer. 2. Hypertension. 3. Degenerative spine disease. PLAN: Continue bladder irrigation and follow urology recommendations. Oncology consultation and fol low recommendations. Resume patient's home medications. Jeanne Buenrostro MD cc: [phone] TT: 03/23/2017 10:27:20 vitaliy
[2017-03-23 12:39] LABS: HEMATOCRIT 31.1 % (35.0-51.0); MEAN CELL VOLUME 97.4 fL (80.0-94.0); MEAN CORPUSCULAR HEMOGLOBIN 32.1 pg (27.0-31.0); MEAN CORPUSCULAR HGB CONC 32.9 g/dL (33.0-37.0); RED CELL DISTRIBUTION WIDTH 15.8 % (11.5-14.5); WHITE BLOOD COUNT 15.8 K/uL (4.8-10.8)
[2017-03-23 12:48] LABS: CHLORIDE 101 mmol/L (98-107); SODIUM 138 mmol/L (132-148)
[2017-03-23 12:49] LABS: POTASSIUM 3.9 mmol/L (3.6-5.2)
[2017-03-23 12:51] LABS: ALB/GLOB RATIO 1.2 (1.0-2.1); ALKALINE PHOSPHATASE 85 U/L (38-126); ALT/SGPT 18 U/L (21-72); AST/SGOT 26 U/L (17-59); BLOOD UREA NITROGEN 18 mg/dL (9-20); CARBON DIOXIDE 23 mmol/L (22-30); GFR AFRICAN-AMERICAN > 60; GLUCOSE,RANDOM 111 mg/dL (75-110); TOTAL PROTEIN 7.1 g/dL (6.3-8.3)
[2017-03-23 12:52] LABS: CALCIUM 8.3 mg/dl (8.6-10.4)
[2017-03-23 13:15] LABS: INR 1.2
[2017-03-24 07:52] LABS: BASO % 0.3 % (0.0-2.0); EOS % 0.2 % (0.0-4.0); HEMATOCRIT 29.6 % (35.0-51.0); LYMPH # 0.8 K/uL (1.0-4.3); LYMPH % 5.7 % (20.0-40.0); MEAN CELL VOLUME 97.2 fL (80.0-94.0); MEAN CORPUSCULAR HEMOGLOBIN 32.3 pg (27.0-31.0); MEAN CORPUSCULAR HGB CONC 33.2 g/dL (33.0-37.0); MEAN PLATELET VOLUME 9.2 fL (7.2-11.7); MONO # 1.9 K/uL (0.0-0.8); MONO % 13.4 % (0.0-10.0); PLATELET COUNT 212 K/uL (130-400); RED CELL DISTRIBUTION WIDTH 15.9 % (11.5-14.5); WHITE BLOOD COUNT 14.2 K/uL (4.8-10.8)
[2017-03-24 09:04] LABS: NEUTROPHIL 75 % (50-75); TOTAL CELLS COUNTED 100
[2017-03-24 09:10] LABS: SPHEROCYTES SLIGHT
[2017-03-24] MEDS: Multiple Vitamins Tab PO SCH (11:06)
[2017-03-24] MEDS: guaiFENesin 100 mg/5 ml Syrup UD PO PRN ×2 (14:51→21:33)
--- NOTE | 2017-03-25 08:32 | PN ---
DATE: 03/25/2017 The patient seen. Chart reviewed, notes, labs, peripheral smear, imaging study and consultation reports reviewed, confirmed and discussed with the patient and Dr. Buenrostro. The patient is an 86-year-old gentleman with newly diagnosed prostate cancer who is now admitted with hematuria and anemia. The patient complains of burning urine and blood in the urine. The patient was seen by an urologist, Dr. Gill, for evaluation of hematuria. The patient was found to have a hemoglobin of 9.8 and the patient still has some blood in the urine. The patient denies any fever, nausea, vomiting, abdominal pain or diarrhea. The patient denies any chest pain, shortness of breath, or palpitation. The patient denies any back pain. The patient does have pelvic pain. The patient denies any neurological symptoms. REVIEW OF SYSTEMS: As stated above. PHYSICAL EXAMINATION: GENERAL: The patient is alert, awake, but confused at time. HEENT: Unremarkable. Anicteric. NECK: Supple. No adenopathy. No JVD. CHEST: Bilateral air. No rales or rhonchi. ABDOMEN: Soft, nontender. Bowel sounds present. No palpable hepatosplenomegaly. EXTREMITIES: No clubbing, no cyanosis, no pedal edema. NEUROLOGIC: Alert, awake, oriented. Nonfocal. BACK: Examination of the back did not reveal any deformity or tenderness. ASSESSMENT AND PLAN: The patient is an 86-year-old patient with stage IV prostate cancer and bone metastasis. The patient is admitted with hematuria and anemia. The urologist is working on the patient's hematuria. The patient just had status post TURP per the urologist during the last admission. The hematuria could be related to the recent TURP or it could be related to the prostate cancer itself. Will discuss with the urologist. The patient's hemoglobin is 9.8. If it goes down further will require blood transfusion. In the meantime, I would suggest that we do iron supplement, ferrous sulfate 1 tablet 3 times a day. As far as the prostate cancer is concerned, the patient has hormone sensitive newly diagnosed prostate cancer. I suggest that patient get GNRH agonist Zoladex for control of the cancer. The patient will require to complete androgen blockade. Flutamide can be added later on, once the patient can tolerate Zoladex. Alternatively, the patient could have bilateral orchiectomy for the treatment of the prostate cancer. The risks, benefits, and side effects of each option and each treatment discussed in great detail with the patient and all involved. Will discuss it further as an outpatient. In the meantime, continue the current management. Toya Wagoner MD cc: [phone] TT: 03/25/2017 08:31:36 Confirmation # [id number] Dictation # [id number] candis LUIS
[2017-03-25] MEDS: Multiple Vitamins Tab PO SCH (11:23)
[2017-03-25] MEDS ORDERED: Sodium Chloride 0.9% 250 ML IV ONE (11:58)
--- NOTE | 2017-03-25 12:55 | CP.PCM.CON ---
<Regina Shelley - Last Filed: 03/25/17 15:31> History of Present Illness - History of Present Illness History of Present Illness: Critical Care Consult Note HPI: 86 M with significant PMHx Metastatic Prostate Cancer and as noted below, presented to the ED on 03/21 for hematuria. Patient had a young catheter placed and the bladder was irrigated. As per family, they requested the patient be discharged that day. Patient returned to the ED on 03/22 for continued hematuria. Patient was evaluated by Dr. Hafsa Gill and was admitted. Hemoglobin upon admission was 10.7, currently it is stable at 9.5. Patient was transferred to the ICU for new onset rapid a fib. Dr. Rubin consulted. Started the patient on Cardizem 30mg PO TID. Dr. Wagoner consulted for metastatic prostate cancer. Palliative care consulted as well. 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, ribs, and pelvis s/p TURP on 02/25/17, Degenerative Spine, CAD with coronary stent (Stress test 03/11 showed EF 60%), AAA s/p Endograft, HTN, HLD, COPD PSHx: As noted above Meds: As per MAR All: NKDA SHx: Admits to smoking tobacco more than 60 years, denied alcohol and illicit drug use FHx: Unremarkable Past Patient History - Infectious Disease Hx of Infectious Diseases: None - Past Medical History & Family History Past Medical History?: Yes - Past Social History Smoking Status: Current Some Days Smoker - CARDIAC Hx Cardiac Disorders: Yes Hx Hypertension: Yes - PULMONARY Hx Respiratory Disorders: No - NEUROLOGICAL Hx Neurological Disorder: No - HEENT Hx HEENT Problems: Yes Other/Comment: WEAR EYEGLASSES FOR READING - RENAL Hx Chronic Kidney Disease: No - ENDOCRINE/METABOLIC Hx Endocrine Disorders: No - HEMATOLOGICAL/ONCOLOGICAL Hx Blood Disorders: No - INTEGUMENTARY Hx Dermatological Problems: No - MUSCULOSKELETAL/RHEUMATOLOGICAL Hx Falls: No - GASTROINTESTINAL Hx Gastrointestinal Disorders: No - GENITOURINARY/GYNECOLOGICAL Hx Genitourinary Disorders: Yes Hx Hematuria: Yes Hx Prostate Problems: Yes - PSYCHIATRIC Hx Substance Use: No - SURGICAL HISTORY Hx Surgeries: Yes Hx Cholecystectomy: Yes Hx Coronary Stent: Yes Other/Comment: Resection of prostrate (02-25-2017) - ANESTHESIA Hx Anesthesia: Yes Hx Anesthesia Reactions: No Hx Malignant Hyperthermia: No Has any member of the family had a problem w/ anesthesia?: No Meds Allergies/Adverse Reactions: Allergies Allergy/AdvReac Type Severity Reaction Status Date / Time No Known Allergies Allergy Verified 02/22/17 09:05 - Medications Medications: Current Medications Acetaminophen (Tylenol 325mg Tab) 650 mg PO Q6 PRN PRN Reason: Pain Amlodipine Besylate (Norvasc) 10 mg PO DAILY [facility] Last Admin: 03/25/17 11:28 Dose: Not Given Cyclobenzaprine HCl (Flexeril) 5 mg PO HS PRN PRN Reason: Muscle spasm Last Admin: 03/24/17 21:34 Dose: 5 mg Famotidine (Pepcid) 20 mg PO DAILY [facility] Last Admin: 03/25/17 11:22 Dose: 20 mg Finasteride (Proscar) 5 mg PO DAILY [facility] Last Admin: 03/25/17 11:18 Dose: 5 mg Guaifenesin (Robitussin) 100 mg PO Q4H PRN PRN Reason: Cough Last Admin: 03/24/17 21:33 Dose: 100 mg Ceftriaxone Sodium 1 gm/ (Sodium Chloride) 100 mls @ 100 mls/hr IVPB DAILY [facility] Last Admin: 03/25/17 11:19 Dose: 100 mls/hr Sodium Chloride (Sodium Chloride 0.9%) 250 mls @ 250 mls/hr IV .Q1H ONE Stop: 03/25/17 12:57 Sodium Chloride (Sodium Chloride 0.9%) 1,000 mls @ 150 mls/hr IV .Q6H40M [facility] Losartan Potassium (Cozaar) 100 mg PO DAILY [facility] Last Admin: 03/25/17 11:28 Dose: Not Given Multivitamins (Hexavitamin) 1 tab PO DAILY [facility] Last Admin: 03/25/17 11:23 Dose: 1 tab Rosuvastatin Calcium (Crestor) 5 mg PO HS [facility] Last Admin: 03/24/17 21:19 Dose: 5 mg Tamsulosin HCl (Flomax) 0.4 mg PO DAILY [facility] Last Admin: 03/25/17 11:18 Dose: 0.4 mg Tramadol HCl (Ultram) 50 mg PO Q6H PRN PRN Reason: Pain, moderate (4-7) Last Admin: 03/23/17 17:30 Dose: 50 mg Physical Exam - Constitutional Appears: Chronically Ill - Head Exam Head Exam: ATRAUMATIC, NORMAL INSPECTION - ENT Exam ENT Exam: Mucous Membranes Dry - Respiratory Exam Respiratory Exam: NORMAL BREATHING PATTERN - Cardiovascular Exam Cardiovascular Exam: Tachycardia, Irregular Rhythm - GI/Abdominal Exam GI & Abdominal Exam: Normal Bowel Sounds, Soft, Tenderness. absent: Distended - Extremities Exam Extremities exam: Positive for: normal inspection, pedal pulses present. Negative for: pedal edema, tenderness - Back Exam Back exam: NORMAL INSPECTION - Neurological Exam Neurological exam: Alert, Oriented x3 - Psychiatric Exam Psychiatric exam: Anxious, Depressed - Skin Skin Exam: Diaphoretic, Warm Results - Vital Signs Recent Vital Signs: Last Vital Signs Temp 98.1 F 03/25/17 08:00 Pulse 127 H 03/25/17 12:34 Resp 20 03/25/17 08:00 BP 94/54 L 03/25/17 12:34 Pulse Ox 96 03/25/17 08:00 - Labs Result Diagrams: 03/25/17 13:06 03/25/17 14:21 Assessment & Plan - Assessment and Plan (Free Text) Assessment: 86 with significant PMHx of 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 Patient transferred to the ICU for new onset Afib. Plan: Prostate Cancer Stage IV with Metastasis * Metastasis to sternum, ribs, and pelvis * s/p TURP on 02/25/17 * Dr. Wagoner - consulted - help appreciated- scheduled to have family meeting today to discuss the results of the nuclear bone scan and further treatment plan. * Ultram, Flexeril, and Tylenol PRN for pain Hematuria * Dr. Gill- consulted - help appreciated * Patient has 3 way young inserted, will be getting flushed routinely. UTI * NS @ 150 cc/hr * UA - 3+ * Rocephin started 03/23/17 Rapid Afib * Unsustained * Asymptomatic * Cardiology consulted- Dr. Rubin - help appreciated- One time dose of Digoxin 0.25mg IV, started Cardizem 30mg PO TID * Will continue to monitor closely HTN * Did not resume home medications: Norvasc 10mg PO daily, Cozaar 100mg PO daily. * Patient started on Cardizem 30mg PO TID HLD * Resume Crestor 5 mg PO daily BPH * Resume Flomax 0.4mg PO daily, Proscar 5 mg PO daily Prophylaxis * GI - Pepcid 20mg PO daily * DVT - contraindicated due to hematuria * Heart Healthy Diet DW Karsten Yang DO, PGY-1 <Mihai Velasquez - Last Filed: 03/25/17 18:11> Meds - Medications Medications: Current Medications Acetaminophen (Tylenol 325mg Tab) 650 mg PO Q6 PRN PRN Reason: Pain Albuterol/Ipratropium (Duoneb 3 Mg/0.5 Mg (3 Ml) Ud) 3 ml INH RQ6 J CARLOS Cyclobenzaprine HCl (Flexeril) 5 mg PO HS PRN PRN Reason: Muscle spasm Last Admin: 03/24/17 21:34 Dose: 5 mg Diltiazem HCl (Cardizem) 30 mg PO TID J CARLOS Famotidine (Pepcid) 20 mg PO DAILY [facility] Last Admin: 03/25/17 11:22 Dose: 20 mg Finasteride (Proscar) 5 mg PO DAILY [facility] Last Admin: 03/25/17 11:18 Dose: 5 mg Guaifenesin (Robitussin) 100 mg PO Q4H PRN PRN Reason: Cough Last Admin: 03/24/17 21:33 Dose: 100 mg Ceftriaxone Sodium 1 gm/ (Sodium Chloride) 100 mls @ 100 mls/hr IVPB DAILY [facility] Last Admin: 03/25/17 11:19 Dose: 100 mls/hr Sodium Chloride (Sodium Chloride 0.9%) 1,000 mls @ 150 mls/hr IV .Q6H40M [facility] Last Admin: 03/25/17 13:27 Dose: 150 mls/hr Multivitamins (Hexavitamin) 1 tab PO DAILY [facility] Last Admin: 03/25/17 11:23 Dose: 1 tab Ondansetron HCl (Zofran Inj) 4 mg IVP Q6H PRN PRN Reason: Nausea/Vomiting Rosuvastatin Calcium (Crestor) 5 mg PO HS [facility] Last Admin: 03/24/17 21:19 Dose: 5 mg Tamsulosin HCl (Flomax) 0.4 mg PO DAILY [facility] Last Admin: 03/25/17 11:18 Dose: 0.4 mg Tramadol HCl (Ultram) 50 mg PO Q6H PRN PRN Reason: Pain, moderate (4-7) Last Admin: 03/23/17 17:30 Dose: 50 mg Results - Vital Signs Recent Vital Signs: Last Vital Signs Temp 97.9 F 03/25/17 16:00 Pulse 82 03/25/17 17:00 Resp 19 03/25/17 17:00 BP 103/55 L 03/25/17 16:58 Pulse Ox 98 03/25/17 17:00 - Labs Result Diagrams: 03/25/17 13:06 03/25/17 14:21 Labs: Laboratory Results - last 24 hr 03/25/17 03/25/17 03/25/17 13:06 13:06 14:21 WBC 10.3 RBC 2.92 L Hgb 9.5 L Hct 28.5 L MCV 97.4 H MCH 32.6 H MCHC 33.5 RDW 15.8 H Plt Count 227 MPV 9.2 Neut % (Auto) 74.4 Lymph % (Auto) 10.8 L Barnwell % (Auto) 13.1 H Eos % (Auto) 1.3 Baso % (Auto) 0.4 Neut # 7.6 H Lymph # 1.1 Barnwell # 1.3 H Eos # 0.1 Baso # 0.0 Sodium 138 Potassium 3.7 Chloride 101 Carbon Dioxide 23 Anion Gap 17 BUN 25 H Creatinine 1.4 Est GFR ( Amer) 58 Est GFR (Non-Af Amer) 48 Random Glucose 100 Calcium 7.9 L Phosphorus 4.3 Magnesium 2.2 Total Bilirubin 0.5 AST 31 ALT 13 L D Alkaline Phosphatase 78 Total Protein 6.4 Albumin 3.1 L Globulin 3.2 Albumin/Globulin Ratio 1.0 Blood Type A POSITIVE Blood Type Confirm A POSITIVE Antibody Screen Negative Attending/Attestation - Attestation I have personally seen and examined this patient.: Yes I have fully participated in the care of the patient.: Yes I have reviewed all pertinent clinical information: Yes Notes (Text): 03/25/17 18:04 86 years old male with prostate cancer stage IV was admitted for hematuria. And transferred to ICU for A. fib with rapid ventricular rate and hypotension Patient started on Cardizem by cardiology ONCOLOGY CONSULT FOR METASTATIC PROSTATE CANCER
[2017-03-25 13:12] LABS: BASO % 0.4 % (0.0-2.0); EOS # 0.1 K/uL (0.0-0.7); EOS % 1.3 % (0.0-4.0); HEMATOCRIT 28.5 % (35.0-51.0); LYMPH # 1.1 K/uL (1.0-4.3); LYMPH % 10.8 % (20.0-40.0); MEAN CELL VOLUME 97.4 fL (80.0-94.0); MEAN CORPUSCULAR HEMOGLOBIN 32.6 pg (27.0-31.0); MEAN CORPUSCULAR HGB CONC 33.5 g/dL (33.0-37.0); MEAN PLATELET VOLUME 9.2 fL (7.2-11.7); MONO # 1.3 K/uL (0.0-0.8); MONO % 13.1 % (0.0-10.0); RED CELL DISTRIBUTION WIDTH 15.8 % (11.5-14.5); WHITE BLOOD COUNT 10.3 K/uL (4.8-10.8)
[2017-03-25] MEDS: Sodium Chloride 0.9% 1,000 ML IV SCH ×2 (13:27→20:29)
[2017-03-25 14:35] LABS: POTASSIUM 3.7 mmol/L (3.6-5.2)
[2017-03-25 14:37] LABS: BILIRUBIN,TOTAL 0.5 mg/dL (0.2-1.3); TOTAL PROTEIN 6.4 g/dL (6.3-8.3)
[2017-03-25 14:38] LABS: CALCIUM 7.9 mg/dl (8.6-10.4); MAGNESIUM 2.2 mg/dL (1.6-2.3); PHOSPHOROUS 4.3 mg/dL (2.5-4.5)
[2017-03-25 15:25] VITALS: PULSE 126
[2017-03-25] MEDS ORDERED: Digoxin 500 mcg/2ml (0.5 mg/2ml) Inj IVP ONE (15:30)
--- NOTE | 2017-03-25 16:11 | CON ---
DATE: 03/25/2017 REASON FOR CONSULTATION: New onset atrial fibrillation. HISTORY OF PRESENT ILLNESS: The patient is an 86-year-old male who was recently diagnosed w ith metastatic prostatic cancer. He presented because of hematuria and underwent bladder irrigation. The patient apparently recently had a TURP. The patient was transferred to ICU because of rapid at rial fibrillation. The patient denies any dizziness and is unaware of any history of heart attack in the past. There was questionable history of mini stroke. SOCIAL HISTORY: The patient is a nonsmoker. He is and lives with his . MEDICATIONS: Rocephin 1 gram intravenously daily, Cozaar 100 mg once a day, which he is being on hol d because of borderline hypertension, Crestor 5 mg once a day, Flexeril 5 mg at bedtime, Flomax 0.4 m g once a day, multivitamin 1 tablet once a day, Norvasc 10 mg once a day, Pepcid 20 mg p.o. once a da y, Proscar 5 mg once a day, normal saline at 150 mL an hour, Zofran 4 mg intravenously q. 6 hours p.r .n. REVIEW OF SYSTEMS: The patient has painful swallowing related to right-sided throat discomfort and a t times nausea. The patient denies retrosternal chest pain or diaphoresis. PHYSICAL EXAMINATION: GENERAL: The patient is an elderly male who does not appear to be in any distress. VITAL SIGNS: Blood pressure 93/62, heart rate 120, respiration 16, temperature 98.2. HEENT: Pale conjunctivae. CHEST: Clear. HEART: S1, S2 regular. ABDOMEN: Soft. EXTREMITIES: No edema. LABORATORY DATA: Today's hemoglobin and hematocrit 9.5 and 28.5. White count and platelet count are within normal limits. White count on admission was 14.1, which is slightly elevated. Today's SMA-7 is within normal limits except for BUN of 25. INR is 1.2, PTT is 32. EKG revealed atrial fibrillat ion with rapid ventricular response, heart rate is 135, nonspecific ST-T wave changes. Recent echoca rdiograph study done on 02/27 reported mild concentric LVH with normal ejection fraction, normal syst olic function and normal segmental wall motion. No pericardial effusion. No pulmonary hypertension. Oncology evaluation was reviewed and according to Dr. Wagoner, the patient has stage IV prostatic c ancer with bone metastasis. The patient just had a TURP during the last admission according to the n eurologist. Hematuria could be related to the recent TURP or to the prostatic cancer itself. Recomm endation by Dr. Wagoner that the patient has hormone sensitive newly diagnosed prostate cancer and Dr. Wagoner suggested to give GnRH agonists. The patient will require complete androgen blockade. Flutamide could be added. Alternatively, the patient could have bilateral orchiectomy. ASSESSMENT: 1. New onset atrial fibrillation. 2. Metastatic prostatic cancer. 3. Anemia. 4. Hematuria. 5. Borderline hypertension. RECOMMENDATIONS: Hold both Cozaar and Norvasc. I will administer digoxin 0.25 mg as a single dose n ow. Obtain TSH level. The patient is not a suitable candidate for anticoagulation in view of ongoin g hematuria. In fact, anticoagulation or antiplatelets are contraindicated at this time. Osmani Rubin MD cc: [id number] TT: 03/25/2017 16:11:19 Confirmation # [id number] Dictation # [id number]
[2017-03-25] MEDS ORDERED: Albuterol-Ipratrop 3 mg / 0.5 (3 ml) UD INH SCH (20:00)
--- NOTE | 2017-03-25 21:07 | PN ---
DATE: 03/25/2017 The patient is seen today 03/25/2017. He still had significant hematuria. PHYSICAL EXAMINATION: VITAL SIGNS: Blood pressure 117/54, temperature 98.4, respiratory rate 20, and pulse 65. HEENT: Pupils equal, reactive to light. Normal-appearing mucosa of the conjunctivae, oropharyngeal and nasal membrane mucosa. NECK: Supple. No JVD. no lymph node, no thyromegaly. CHEST AND LUNGS: Bilaterally symmetrical expansion. Good air exchange. No rales, no rhonchi. CARDIOVASCULAR: PMI not localized, S1 and S2, , no additional sounds . ABDOMEN: Normoactive bowel sounds, no tenderness, no organomegaly, no masses. EXTREMITIES: No cyanosis, no clubbing, no edema. CENTRAL NERVOUS SYSTEM: Alert, awake, oriented x 2. No neurological deficits could be appreciated. ASSESSMENT: Persistent hematuria, metastatic prostate cancer, with new onset atrial fibrillation. PLAN: Cardiology consult. Transfer the patient to intensive care unit. Discussed with clinical informatics strategist who will monitor closely the hemoglobin and hematocrit and order any further medicine needed. Jeanne Buenrostro MD cc: [id number] TT: 03/25/2017 21:06:48 Confirmation # [id number] Dictation # [id number] MTDD
[2017-03-25] MEDS: Albuterol-Ipratrop 3 mg / 0.5 (3 ml) UD INH SCH ×2 (22:19→22:20)
[2017-03-26] MEDS: Albuterol-Ipratrop 3 mg / 0.5 (3 ml) UD INH SCH ×2 (03:06→07:31)
[2017-03-26] MEDS: Sodium Chloride 0.9% 1,000 ML IV SCH ×3 (04:30→13:38)
[2017-03-26 06:44] LABS: BASO % 0.6 % (0.0-2.0); EOS # 0.2 K/uL (0.0-0.7); EOS % 3.2 % (0.0-4.0); HEMATOCRIT 27.8 % (35.0-51.0); LYMPH % 12.6 % (20.0-40.0); MEAN CELL VOLUME 97.4 fL (80.0-94.0); MEAN CORPUSCULAR HEMOGLOBIN 32.7 pg (27.0-31.0); MEAN CORPUSCULAR HGB CONC 33.6 g/dL (33.0-37.0); MEAN PLATELET VOLUME 9.2 fL (7.2-11.7); MONO % 13.4 % (0.0-10.0); RED CELL DISTRIBUTION WIDTH 15.7 % (11.5-14.5); WHITE BLOOD COUNT 7.7 K/uL (4.8-10.8)
[2017-03-26 06:48] LABS: CHLORIDE 107 mmol/L (98-107); POTASSIUM 3.9 mmol/L (3.6-5.2); SODIUM 138 mmol/L (132-148)
[2017-03-26 06:50] LABS: BILIRUBIN,TOTAL 0.5 mg/dL (0.2-1.3); CARBON DIOXIDE 21 mmol/L (22-30); GFR AFRICAN-AMERICAN > 60
[2017-03-26 06:51] LABS: ALKALINE PHOSPHATASE 71 U/L (38-126); ALT/SGPT 20 U/L (21-72); AST/SGOT 25 U/L (17-59); BLOOD UREA NITROGEN 18 mg/dL (9-20); CALCIUM 7.2 mg/dl (8.6-10.4); GLUCOSE,RANDOM 94 mg/dL (75-110); MAGNESIUM 2.1 mg/dL (1.6-2.3); PHOSPHOROUS 3.6 mg/dL (2.5-4.5); TOTAL PROTEIN 5.9 g/dL (6.3-8.3)
--- NOTE | 2017-03-26 08:30 | CP.CCUPN ---
<Regina Shelley - Last Filed: 03/26/17 13:50> CCU Subjective - Physician Review Subjective (Free Text): Patient was seen and examined at bedside. No acute complaints. Patient reports no pain, tolerating diet well. Continues to have hematuria, when young is flushed, clots emerge. Hemoglobin is stable. Last night patient reverted back to RVR. Started on Cardizem PO. Patient is to be transferred to [facility]. Follow up CT chest for hx of AAA and Abdomen and Pelvis for hematuria. CCU Objective - Vital Signs / Intake & Output Vital Signs (Last 4 hours): Vital Signs Pulse Resp BP Pulse Ox 03/26/17 06:00 72 19 83 L 03/26/17 05:58 59 L 15 111/33 L 73 L 03/26/17 05:28 54 L 18 104/38 L 96 03/26/17 04:58 55 L 10 L 121/50 L 90 L 03/26/17 04:28 59 L 16 125/52 L 92 L Intake and Output (Last 8hrs): Intake & Output 03/25/17 03/26/17 03/26/17 22:59 06:59 14:59 Intake Total 1760 1200 Output Total 570 480 Balance 1190 720 Intake: Intake, IV Amount 1200 1200 Left Wrist 1200 1200 Oral 560 0 Output: Urine 570 480 3-way Urethral 570 480 Other: # Bowel Movements 0 - Physical Exam Head: Positive for: Atraumatic, Normocephalic Pupils: Positive for: PERRL Extroacular Muscles: Positive for: EOMI Conjunctiva: Positive for: Normal Mouth: Positive for: Moist Mucous Membranes Respiratory/Chest: Positive for: Clear to Auscultation. Negative for: Accessory Muscle Use, Decreased Breath Sounds Cardiovascular: Positive for: Irregular Rhythm, Tachycardic Abdomen: Positive for: Normal Bowel Sounds. Negative for: Tenderness, Distention Upper Extremity: Positive for: Normal Inspection, NORMAL PULSES. Negative for: Cyanosis, Edema Lower Extremity: Positive for: Normal Inspection, NORMAL PULSES. Negative for: Edema, CALF TENDERNESS Neurological: Positive for: GCS=15 Skin: Positive for: Warm, Dry, Normal Color. Negative for: Rashes Psychiatric: Positive for: Alert, Oriented x 3 - Medications Active Medications: Active Medications Generic Name Dose Route Start Last Admin Trade Name Freq PRN Reason Stop Dose Admin Acetaminophen 650 mg 03/22/17 23:42 Tylenol 325mg Tab PO Q6 PRN Pain Albuterol/Ipratropium 3 ml 03/25/17 16:00 03/26/17 07:31 Duoneb 3 Mg/0.5 Mg (3 Ml) Ud INH 3 ml RQ6 J CARLOS Administration Cyclobenzaprine HCl 5 mg 03/22/17 23:45 03/24/17 21:34 Flexeril PO 5 mg HS PRN Administration Muscle spasm Diltiazem HCl 30 mg 03/25/17 18:00 03/25/17 18:07 Cardizem PO 30 mg TID J CARLOS Administration Famotidine 20 mg 03/23/17 10:00 03/25/17 11:22 Pepcid PO 20 mg DAILY J CARLOS Administration Finasteride 5 mg 03/23/17 10:00 03/25/17 11:18 Proscar PO 5 mg DAILY J CARLOS Administration Guaifenesin 100 mg 03/24/17 14:40 03/24/17 21:33 Robitussin PO 100 mg Q4H PRN Administration Cough Ceftriaxone Sodium 1 gm/ 100 mls @ 100 mls/hr 03/23/17 10:00 03/25/17 11:19 Sodium Chloride IVPB 100 mls/hr DAILY J CARLOS Administration Sodium Chloride 1,000 mls @ 150 mls/hr 03/25/17 12:45 03/26/17 04:30 Sodium Chloride 0.9% IV 150 mls/hr .[id number] J CARLOS Administration Multivitamins 1 tab 03/23/17 10:00 03/25/17 11:23 Hexavitamin PO 1 tab DAILY J CARLOS Administration Ondansetron HCl 4 mg 03/25/17 13:23 Zofran Inj IVP Q6H PRN Nausea/Vomiting Rosuvastatin Calcium 5 mg 03/23/17 22:00 03/25/17 22:05 Crestor PO Not Given HS J CARLOS Tamsulosin HCl 0.4 mg 03/23/17 10:00 03/25/17 11:18 Flomax PO 0.4 mg DAILY J CARLOS Administration Tramadol HCl 50 mg 03/22/17 23:50 03/23/17 17:30 Ultram PO 50 mg Q6H PRN Administration Pain, moderate (4-7) - Patient Studies Lab Studies: Lab Studies 03/26/17 03/26/1717 Range/Units 06:29 06:29 14:21 WBC 7.7 (4.8-10.8) K/uL RBC 2.85 L (4.40-5.90) Mil/uL Hgb 9.3 L (12.0-18.0) g/dL Hct 27.8 L (35.0-51.0) % MCV 97.4 H (80.0-94.0) fL MCH 32.7 H (27.0-31.0) pg MCHC 33.6 (33.0-37.0) g/dL RDW 15.7 H (11.5-14.5) % Plt Count 192 (130-400) K/uL MPV 9.2 (7.2-11.7) fL Neut % (Auto) 70.2 (50.0-75.0) % Lymph % (Auto) 12.6 L (20.0-40.0) % [place] % (Auto) 13.4 H (0.0-10.0) % Eos % (Auto) 3.2 (0.0-4.0) % Baso % (Auto) 0.6 (0.0-2.0) % Neut # 5.4 (1.8-7.0) K/uL Lymph # 1.0 (1.0-4.3) K/uL [place] # 1.0 H (0.0-0.8) K/uL Eos # 0.2 (0.0-0.7) K/uL Baso # 0.0 (0.0-0.2) K/uL Sodium 138 138 (132-148) mmol/L Potassium 3.9 3.7 (3.6-5.2) mmol/L Chloride 107 101 (98-107) mmol/L Carbon Dioxide 21 L 23 (22-30) mmol/L Anion Gap 14 17 (10-20) BUN 18 25 H (9-20) mg/dL Creatinine 1.1 1.4 (0.8-1.5) MG/DL Est GFR ( Amer) > 60 58 Est GFR (Non-Af Amer) > 60 48 Random Glucose 94 100 (75-110) mg/dL Calcium 7.2 L 7.9 L (8.6-10.4) mg/dl Phosphorus 3.6 4.3 (2.5-4.5) mg/dL Magnesium 2.1 2.2 (1.6-2.3) mg/dL Total Bilirubin 0.5 0.5 (0.2-1.3) mg/dL AST 25 31 (17-59) U/L ALT 20 L D 13 L D (21-72) U/L Alkaline Phosphatase 71 78 (38-126) U/L Total Protein 5.9 L 6.4 (6.3-8.3) g/dL Albumin 2.9 L 3.1 L (3.5-5.0) g/dL Globulin 3.0 3.2 (2.2-3.9) gm/dL Albumin/Globulin Ratio 1.0 1.0 (1.0-2.1) Blood Type Blood Type Confirm Antibody Screen 03/25/17 03/25/17 Range/Units 13:06 13:06 WBC 10.3 (4.8-10.8) K/uL RBC 2.92 L (4.40-5.90) Mil/uL Hgb 9.5 L (12.0-18.0) g/dL Hct 28.5 L (35.0-51.0) % MCV 97.4 H (80.0-94.0) fL MCH 32.6 H (27.0-31.0) pg MCHC 33.5 (33.0-37.0) g/dL RDW 15.8 H (11.5-14.5) % Plt Count 227 (130-400) K/uL MPV 9.2 (7.2-11.7) fL Neut % (Auto) 74.4 (50.0-75.0) % Lymph % (Auto) 10.8 L (20.0-40.0) % [place] % (Auto) 13.1 H (0.0-10.0) % Eos % (Auto) 1.3 (0.0-4.0) % Baso % (Auto) 0.4 (0.0-2.0) % Neut # 7.6 H (1.8-7.0) K/uL Lymph # 1.1 (1.0-4.3) K/uL [place] # 1.3 H (0.0-0.8) K/uL Eos # 0.1 (0.0-0.7) K/uL Baso # 0.0 (0.0-0.2) K/uL Sodium (132-148) mmol/L Potassium (3.6-5.2) mmol/L Chloride (98-107) mmol/L Carbon Dioxide (22-30) mmol/L Anion Gap (10-20) BUN (9-20) mg/dL Creatinine (0.8-1.5) MG/DL Est GFR ( Amer) Est GFR (Non-Af Amer) Random Glucose (75-110) mg/dL Calcium (8.6-10.4) mg/dl Phosphorus (2.5-4.5) mg/dL Magnesium (1.6-2.3) mg/dL Total Bilirubin (0.2-1.3) mg/dL AST (17-59) U/L ALT (21-72) U/L Alkaline Phosphatase (38-126) U/L Total Protein (6.3-8.3) g/dL Albumin (3.5-5.0) g/dL Globulin (2.2-3.9) gm/dL Albumin/Globulin Ratio (1.0-2.1) Blood Type A POSITIVE Blood Type Confirm A POSITIVE Antibody Screen Negative Laboratory Results - last 24 hr 03/25/17 03/25/17 03/25/17 13:06 13:06 14:21 WBC 10.3 RBC 2.92 L Hgb 9.5 L Hct 28.5 L MCV 97.4 H MCH 32.6 H MCHC 33.5 RDW 15.8 H Plt Count 227 MPV 9.2 Neut % (Auto) 74.4 Lymph % (Auto) 10.8 L [place] % (Auto) 13.1 H Eos % (Auto) 1.3 Baso % (Auto) 0.4 Neut # 7.6 H Lymph # 1.1 [place] # 1.3 H Eos # 0.1 Baso # 0.0 Sodium 138 Potassium 3.7 Chloride 101 Carbon Dioxide 23 Anion Gap 17 BUN 25 H Creatinine 1.4 Est GFR ( Amer) 58 Est GFR (Non-Af Amer) 48 Random Glucose 100 Calcium 7.9 L Phosphorus 4.3 Magnesium 2.2 Total Bilirubin 0.5 AST 31 ALT 13 L D Alkaline Phosphatase 78 Total Protein 6.4 Albumin 3.1 L Globulin 3.2 Albumin/Globulin Ratio 1.0 Blood Type A POSITIVE Blood Type Confirm A POSITIVE Antibody Screen Negative 03/26/17 03/26/17 06:29 06:29 WBC 7.7 RBC 2.85 L Hgb 9.3 L Hct 27.8 L MCV 97.4 H MCH 32.7 H MCHC 33.6 RDW 15.7 H Plt Count 192 MPV 9.2 Neut % (Auto) 70.2 Lymph % (Auto) 12.6 L [place] % (Auto) 13.4 H Eos % (Auto) 3.2 Baso % (Auto) 0.6 Neut # 5.4 Lymph # 1.0 [place] # 1.0 H Eos # 0.2 Baso # 0.0 Sodium 138 Potassium 3.9 Chloride 107 Carbon Dioxide 21 L Anion Gap 14 BUN 18 Creatinine 1.1 Est GFR ( Amer) > 60 Est GFR (Non-Af Amer) > 60 Random Glucose 94 Calcium 7.2 L Phosphorus 3.6 Magnesium 2.1 Total Bilirubin 0.5 AST 25 ALT 20 L D Alkaline Phosphatase 71 Total Protein 5.9 L Albumin 2.9 L Globulin 3.0 Albumin/Globulin Ratio 1.0 Blood Type Blood Type Confirm Antibody Screen EKG/Cardiology Studies: Cardiology / EKG Studies 03/25/17 11:56 EKG [ELECTROCARDIOGRAM] Stat Comment: Mode Of Transportation: PORTABLE Reason For Exam: tachycardia Assessment/Plan - Assessment and Plan (Free Text) Assessment: 86 with significant PMHx of 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 Patient transferred to the ICU for new onset Afib. Plan: Prostate Cancer Stage IV with Metastasis * Metastasis to sternum, ribs, and pelvis * s/p TURP on 02/25/17 * Dr. Wagoner - consulted - help appreciated- family meeting occurred yesterday * Ultram, Flexeril, and Tylenol PRN for pain Hematuria * Dr. Gill- consulted - CT abdomen and pelvis ordered - follow up * Patient has 3 way young inserted, will be getting flushed routinely. * Hemoglobin is stable, 2 units PRBCs are on hold. UTI * NS @ 150 cc/hr * UA - 3+ * Rocephin started 03/23/17 Rapid Afib * Unsustained * Asymptomatic * Cardiology consulted- Dr. Rubin - help appreciated- One time dose of Digoxin 0.25mg IV, started Cardizem 30mg PO TID * Will continue to monitor closely Hx of AAA * CT chest ordered- follow up HTN * Did not resume home medications: Norvasc 10mg PO daily, Cozaar 100mg PO daily. * Patient started on Cardizem 30mg PO TID HLD * Resume Crestor 5 mg PO daily BPH * Resume Flomax 0.4mg PO daily, Proscar 5 mg PO daily Prophylaxis * GI - Pepcid 20mg PO daily * DVT - contraindicated due to hematuria * Heart Healthy Diet Patient transferred to [facility] DW Karsten Starks DO, PGY-1 <Kathy Maher - Last Filed: 03/26/17 19:08> CCU Subjective - Physician Review Critical Care Time Spent (in minutes): 45 CCU Objective - Vital Signs / Intake & Output Vital Signs (Last 4 hours): Vital Signs Temp Pulse Resp BP Pulse Ox 03/26/17 15:44 97.4 F L 58 L 20 144/64 96 Intake and Output (Last 8hrs): Intake & Output 03/26/17 03/26/17 03/26/17 06:59 14:59 22:59 Intake Total 1200 1545 Output Total 480 420 Balance 720 1125 Intake: Intake, IV Amount 1200 925 Left Wrist 1200 850 Right Forearm 75 Oral 0 620 Output: Urine 480 420 3-way Urethral 480 420 - Medications Active Medications: Active Medications Generic Name Dose Route Start Last Admin Trade Name Freq PRN Reason Stop Dose Admin Acetaminophen 650 mg 03/22/17 23:42 Tylenol 325mg Tab PO Q6 PRN Pain Cyclobenzaprine HCl 5 mg 03/22/17 23:45 03/24/17 21:34 Flexeril PO 5 mg HS PRN Administration Muscle spasm Diltiazem HCl 30 mg 03/25/17 18:00 03/26/17 18:06 Cardizem PO 30 mg TID J CARLOS Administration Famotidine 20 mg 03/23/17 10:00 03/26/17 09:50 Pepcid PO 20 mg DAILY J CARLOS Administration Finasteride 5 mg 03/23/17 10:00 03/26/17 09:51 Proscar PO 5 mg DAILY J CARLOS Administration Guaifenesin 100 mg 03/24/17 14:40 03/24/17 21:33 Robitussin PO 100 mg Q4H PRN Administration Cough Ceftriaxone Sodium 1 gm/ 100 mls @ 100 mls/hr 03/23/17 10:00 03/26/17 09:50 Sodium Chloride IVPB 100 mls/hr DAILY J CARLOS Administration Sodium Chloride 1,000 mls @ 75 mls/hr 03/26/17 13:29 03/26/17 13:38 Sodium Chloride 0.9% IV 75 mls/hr .[id number] J CARLOS Administration Multivitamins 1 tab 03/23/17 10:00 03/26/17 09:50 Hexavitamin PO 1 tab DAILY J CARLOS Administration Ondansetron HCl 4 mg 03/25/17 13:23 Zofran Inj IVP Q6H PRN Nausea/Vomiting Rosuvastatin Calcium 5 mg 03/23/17 22:00 03/25/17 22:05 Crestor PO Not Given HS J CARLOS Tamsulosin HCl 0.4 mg 03/23/17 10:00 03/26/17 09:50 Flomax PO 0.4 mg DAILY J CARLOS Administration Tramadol HCl 50 mg 03/22/17 23:50 03/23/17 17:30 Ultram PO 50 mg Q6H PRN Administration Pain, moderate (4-7) - Patient Studies Lab Studies: Lab Studies 03/26/17 03/26/17 03/26/17 Range/Units 16:43 06:29 06:29 WBC 7.7 (4.8-10.8) K/uL RBC 2.85 L (4.40-5.90) Mil/uL Hgb 9.3 L (12.0-18.0) g/dL Hct 27.8 L (35.0-51.0) % MCV 97.4 H (80.0-94.0) fL MCH 32.7 H (27.0-31.0) pg MCHC 33.6 (33.0-37.0) g/dL RDW 15.7 H (11.5-14.5) % Plt Count 192 (130-400) K/uL MPV 9.2 (7.2-11.7) fL Neut % (Auto) 70.2 (50.0-75.0) % Lymph % (Auto) 12.6 L (20.0-40.0) % [place] % (Auto) 13.4 H (0.0-10.0) % Eos % (Auto) 3.2 (0.0-4.0) % Baso % (Auto) 0.6 (0.0-2.0) % Neut # 5.4 (1.8-7.0) K/uL Lymph # 1.0 (1.0-4.3) K/uL [place] # 1.0 H (0.0-0.8) K/uL Eos # 0.2 (0.0-0.7) K/uL Baso # 0.0 (0.0-0.2) K/uL Sodium 138 (132-148) mmol/L Potassium 3.9 (3.6-5.2) mmol/L Chloride 107 (98-107) mmol/L Carbon Dioxide 21 L (22-30) mmol/L Anion Gap 14 (10-20) BUN 18 (9-20) mg/dL Creatinine 1.1 (0.8-1.5) MG/DL Est GFR ( Amer) > 60 Est GFR (Non-Af Amer) > 60 Random Glucose 94 (75-110) mg/dL Calcium 7.2 L (8.6-10.4) mg/dl Phosphorus 3.6 (2.5-4.5) mg/dL Magnesium 2.1 (1.6-2.3) mg/dL Total Bilirubin 0.5 (0.2-1.3) mg/dL AST 25 (17-59) U/L ALT 20 L D (21-72) U/L Alkaline Phosphatase 71 (38-126) U/L Total Protein 5.9 L (6.3-8.3) g/dL Albumin 2.9 L (3.5-5.0) g/dL Globulin 3.0 (2.2-3.9) gm/dL Albumin/Globulin Ratio 1.0 (1.0-2.1) TSH 3rd Generation 1.72 (0.46-4.68) mIU/L Laboratory Results - last 24 hr 03/26/17 03/26/17 03/26/17 06:29 06:29 16:43 WBC 7.7 RBC 2.85 L Hgb 9.3 L Hct 27.8 L MCV 97.4 H MCH 32.7 H MCHC 33.6 RDW 15.7 H Plt Count 192 MPV 9.2 Neut % (Auto) 70.2 Lymph % (Auto) 12.6 L [place] % (Auto) 13.4 H Eos % (Auto) 3.2 Baso % (Auto) 0.6 Neut # 5.4 Lymph # 1.0 [place] # 1.0 H Eos # 0.2 Baso # 0.0 Sodium 138 Potassium 3.9 Chloride 107 Carbon Dioxide 21 L Anion Gap 14 BUN 18 Creatinine 1.1 Est GFR ( Amer) > 60 Est GFR (Non-Af Amer) > 60 Random Glucose 94 Calcium 7.2 L Phosphorus 3.6 Magnesium 2.1 Total Bilirubin 0.5 AST 25 ALT 20 L D Alkaline Phosphatase 71 Total Protein 5.9 L Albumin 2.9 L Globulin 3.0 Albumin/Globulin Ratio 1.0 TSH 3rd Generation 1.72 Attending/Attestation - Attestation I have personally seen and examined this patient.: Yes I have fully participated in the care of the patient.: Yes I have reviewed all pertinent clinical information: Yes Notes (Text): 03/26/17 19:07 pt doing well had dizziness hypotension orthostasis IVf given
--- NOTE | 2017-03-26 08:33 | PCM.URO ---
Urology Progress Note - Objective Lab Results Last 24 Hours: Laboratory Results - last 24 hr 03/25/17 03/25/17 03/25/17 13:06 13:06 14:21 WBC 10.3 RBC 2.92 L Hgb 9.5 L Hct 28.5 L MCV 97.4 H MCH 32.6 H MCHC 33.5 RDW 15.8 H Plt Count 227 MPV 9.2 Neut % (Auto) 74.4 Lymph % (Auto) 10.8 L Keith % (Auto) 13.1 H Eos % (Auto) 1.3 Baso % (Auto) 0.4 Neut # 7.6 H Lymph # 1.1 Keith # 1.3 H Eos # 0.1 Baso # 0.0 Sodium 138 Potassium 3.7 Chloride 101 Carbon Dioxide 23 Anion Gap 17 BUN 25 H Creatinine 1.4 Est GFR ( Amer) 58 Est GFR (Non-Af Amer) 48 Random Glucose 100 Calcium 7.9 L Phosphorus 4.3 Magnesium 2.2 Total Bilirubin 0.5 AST 31 ALT 13 L D Alkaline Phosphatase 78 Total Protein 6.4 Albumin 3.1 L Globulin 3.2 Albumin/Globulin Ratio 1.0 Blood Type A POSITIVE Blood Type Confirm A POSITIVE Antibody Screen Negative 03/26/17 03/26/17 06:29 06:29 WBC 7.7 RBC 2.85 L Hgb 9.3 L Hct 27.8 L MCV 97.4 H MCH 32.7 H MCHC 33.6 RDW 15.7 H Plt Count 192 MPV 9.2 Neut % (Auto) 70.2 Lymph % (Auto) 12.6 L Keith % (Auto) 13.4 H Eos % (Auto) 3.2 Baso % (Auto) 0.6 Neut # 5.4 Lymph # 1.0 Keith # 1.0 H Eos # 0.2 Baso # 0.0 Sodium 138 Potassium 3.9 Chloride 107 Carbon Dioxide 21 L Anion Gap 14 BUN 18 Creatinine 1.1 Est GFR ( Amer) > 60 Est GFR (Non-Af Amer) > 60 Random Glucose 94 Calcium 7.2 L Phosphorus 3.6 Magnesium 2.1 Total Bilirubin 0.5 AST 25 ALT 20 L D Alkaline Phosphatase 71 Total Protein 5.9 L Albumin 2.9 L Globulin 3.0 Albumin/Globulin Ratio 1.0 Blood Type Blood Type Confirm Antibody Screen Intake & Output: Intake & Output 03/25/17 03/26/17 03/26/17 18:59 06:59 18:59 Intake Total 1095 2040 Output Total 440 710 Balance 655 1330 Intake: Intake, IV Amount 675 1800 Left Wrist 675 1800 Oral 420 240 Output: Urine 440 710 3-way Urethral 440 710 Other: # Bowel Movements 0 0 Vital Signs: Vital Signs - 24 hr 03/25/17 03/25/17 03/25/17 11:29 12:34 12:55 Temperature Pulse Rate 138 H 127 H 137 H Respiratory 22 Rate Blood Pressure 88/55 L 94/54 L 92/45 L O2 Sat by Pulse 98 Oximetry 03/25/17 03/25/17 03/25/17 13:00 13:10 13:15 Temperature 98.2 F Pulse Rate 125 H 134 H Respiratory 26 H 31 H 18 Rate Blood Pressure O2 Sat by Pulse 95 95 98 Oximetry 03/25/17 03/25/17 03/25/17 13:18 13:20 13:28 Temperature Pulse Rate 114 H 128 H 135 H Respiratory 27 H 22 21 Rate Blood Pressure 94/58 L 94/54 L O2 Sat by Pulse 93 L 93 L 94 L Oximetry 03/25/17 03/25/17 03/25/17 13:30 13:40 14:00 Temperature Pulse Rate 127 H 134 H 133 H Respiratory 11 L 20 24 Rate Blood Pressure O2 Sat by Pulse 95 96 98 Oximetry 03/25/17 03/25/17 03/25/17 14:06 14:10 14:20 Temperature Pulse Rate 136 H 141 H 126 H Respiratory 23 21 22 Rate Blood Pressure 100/68 O2 Sat by Pulse 97 96 99 Oximetry 03/25/17 03/25/17 03/25/17 14:28 14:30 14:40 Temperature Pulse Rate 120 H 138 H 115 H Respiratory 23 22 20 Rate Blood Pressure 93/62 L O2 Sat by Pulse 99 100 99 Oximetry 03/25/17 03/25/17 03/25/17 14:50 14:58 15:00 Temperature Pulse Rate 111 H 130 H 131 H Respiratory 16 21 19 Rate Blood Pressure 99/64 L O2 Sat by Pulse 100 99 99 Oximetry 03/25/17 03/25/17 03/25/17 15:10 15:20 15:28 Temperature Pulse Rate 121 H 111 H 120 H Respiratory 15 20 18 Rate Blood Pressure 94/61 L O2 Sat by Pulse 98 100 98 Oximetry 03/25/17 03/25/17 03/25/17 15:30 15:40 15:50 Temperature Pulse Rate 152 H 119 H 143 H Respiratory 24 13 13 Rate Blood Pressure O2 Sat by Pulse 100 99 99 Oximetry 03/25/17 03/25/17 03/25/17 15:58 16:00 16:10 Temperature 97.9 F Pulse Rate 122 H 127 H 67 Respiratory 23 24 19 Rate Blood Pressure 103/66 O2 Sat by Pulse 97 94 L 99 Oximetry 03/25/17 03/25/17 03/25/17 16:20 16:28 16:30 Temperature Pulse Rate 72 72 71 Respiratory 23 18 23 Rate Blood Pressure 108/53 L O2 Sat by Pulse 100 93 L 97 Oximetry 03/25/17 03/25/17 03/25/17 16:40 16:50 16:58 Temperature Pulse Rate 73 77 81 Respiratory 24 22 16 Rate Blood Pressure 103/55 L O2 Sat by Pulse 100 98 99 Oximetry 03/25/17 03/25/17 03/25/17 17:00 17:10 17:20 Temperature Pulse Rate 82 77 84 Respiratory 19 24 18 Rate Blood Pressure O2 Sat by Pulse 98 99 100 Oximetry 03/25/17 03/25/17 03/25/17 17:28 17:30 17:40 Temperature Pulse Rate 82 79 Respiratory 14 15 Rate Blood Pressure 119/57 L O2 Sat by Pulse 100 99 Oximetry 03/25/17 03/25/17 03/25/17 17:50 17:58 18:00 Temperature Pulse Rate 79 79 70 Respiratory 25 H 20 25 H Rate Blood Pressure 125/53 L O2 Sat by Pulse 100 98 100 Oximetry 03/25/17 03/25/17 03/25/17 18:10 18:20 18:28 Temperature Pulse Rate 74 73 69 Respiratory 11 L 23 24 Rate Blood Pressure 118/55 L O2 Sat by Pulse 98 100 99 Oximetry 03/25/17 03/25/17 03/25/17 18:30 18:40 18:50 Temperature Pulse Rate 69 69 66 Respiratory 24 23 21 Rate Blood Pressure O2 Sat by Pulse 100 99 99 Oximetry 03/25/17 03/25/17 03/25/17 18:58 19:00 19:10 Temperature Pulse Rate 64 70 67 Respiratory 21 19 22 Rate Blood Pressure 110/51 L O2 Sat by Pulse 98 96 100 Oximetry 03/25/17 03/25/17 03/25/17 19:20 19:28 19:30 Temperature Pulse Rate 69 65 68 Respiratory 13 23 22 Rate Blood Pressure 117/54 L O2 Sat by Pulse 99 99 99 Oximetry 03/25/17 03/25/17 03/25/17 20:00 20:28 20:58 Temperature 98.9 F Pulse Rate 77 57 L Respiratory 14 20 Rate Blood Pressure 111/51 L 109/50 L O2 Sat by Pulse 95 98 Oximetry 03/25/17 03/25/17 03/25/17 21:00 21:58 22:00 Temperature Pulse Rate 58 L 65 61 Respiratory 21 16 21 Rate Blood Pressure 117/53 L O2 Sat by Pulse 98 94 L 94 L Oximetry 03/25/17 03/25/17 03/25/17 22:21 22:28 22:58 Temperature Pulse Rate 67 57 L 57 L Respiratory 19 18 Rate Blood Pressure 117/51 L 112/64 O2 Sat by Pulse 93 L 95 Oximetry 03/25/17 03/25/17 03/25/17 23:00 23:28 23:58 Temperature Pulse Rate 68 60 62 Respiratory 15 15 21 Rate Blood Pressure 125/77 114/51 L O2 Sat by Pulse 94 L 93 L 96 Oximetry 03/26/17 03/26/17 03/26/17 00:00 00:29 00:58 Temperature 98.9 F Pulse Rate 58 L 57 L 58 L Respiratory 23 12 20 Rate Blood Pressure 102/36 L 112/43 L O2 Sat by Pulse 94 L 95 97 Oximetry 03/26/17 03/26/17 03/26/17 01:00 01:28 01:58 Temperature Pulse Rate 54 L 55 L 69 Respiratory 22 16 17 Rate Blood Pressure 105/36 L 122/32 L O2 Sat by Pulse 95 97 70 L Oximetry 03/26/17 03/26/17 03/26/17 02:00 02:28 02:58 Temperature Pulse Rate 61 52 L Respiratory 17 10 L Rate Blood Pressure 134/49 L 159/39 H O2 Sat by Pulse 81 L 97 Oximetry 03/26/17 03/26/17 03/26/17 03:00 03:28 03:58 Temperature Pulse Rate 51 L 53 L 57 L Respiratory 9 L 25 H 13 Rate Blood Pressure 105/41 L 122/38 L O2 Sat by Pulse 96 97 94 L Oximetry 03/26/17 03/26/17 03/26/17 04:00 04:28 04:58 Temperature Pulse Rate 60 59 L 55 L Respiratory 19 16 10 L Rate Blood Pressure 125/52 L 121/50 L O2 Sat by Pulse 89 L 92 L 90 L Oximetry 03/26/17 03/26/17 03/26/17 05:28 05:58 06:00 Temperature Pulse Rate 54 L 59 L 72 Respiratory 18 15 19 Rate Blood Pressure 104/38 L 111/33 L O2 Sat by Pulse 96 73 L 83 L Oximetry
--- NOTE | 2017-03-26 09:31 | RAD ---
HISTORY: cough COMPARISON: 03/11/2017 FINDINGS: LUNGS: Mild venous congestion. Patchy increased markings at the left lung base. Small nodular density at the left lung base may represent prominent vessel on end versus small nodule. Small left pleural effusion. Biapical pleural thickening with upper lobe granulomatous changes. PLEURA: As above. CARDIOVASCULAR: Cardiomegaly. Aortic stent in place. Calcification at the aortic knob. Right paratracheal airspace opacity may represent prominent vasculature. OSSEOUS STRUCTURES: No significant abnormalities. VISUALIZED UPPER ABDOMEN: Normal. OTHER FINDINGS: None. IMPRESSION: Mild venous congestion. Patchy increased markings at the left lung base. Small nodular density at the left lung base may represent prominent vessel on end versus small nodule. Small left pleural effusion. Biapical pleural thickening with upper lobe granulomatous changes. Cardiomegaly. Aortic stent in place. Calcification at the aortic knob. Right paratracheal airspace opacity may represent prominent vasculature.
[2017-03-26] MEDS: Multiple Vitamins Tab PO SCH (09:50)
--- NOTE | 2017-03-26 11:39 | CP.PCM.CON ---
History of Present Illness - History of Present Illness History of Present Illness: Palliative consult requested by Karsten AYALA Reason: Goals of care discussion Patient is a 86 yo male admitted with hematuria. Bladder irrigation was startted in ED and patient transfered to ICU for further care. Doctor Bridget called on consult.Hb stable at 9.3. WBC dropped from 14.1 to 7.7. UTI confirmed for Staph. Epidermidis. Patient is on Rocephin IV and Ultram for pain. CXR showed mild venous congestion, CT scan done this morning, result pending. PMH: metastatic prostate CA, HTN Soc. Hx: . retired. lives at home Fam. hx: Unknown Review of Systems - Constitutional Constitutional: Other Additional comments: Loss of appetite - EENT Eyes: absent: As Per HPI, Blind Spots, Blurred Vision, Change in Vision, Decreased Night Vision, Diplopia, Discharge, Dry Eye, Exophthalmos, Floaters, Irritation, Itchy Eyes, Loss of Peripheral Vision, Pain, Photophobia, Requires Corrective Lenses, Sees Flashes, Spots in Vision, Tunnel Vision, Other Visual Disturbances, Loss of Vision, Other Ears: absent: As Per HPI, Decreased Hearing, Ear Discharge, Ear Pain, Tinnitus, Abnormal Hearing, Disequilibrium, Dizziness, Other Nose/Mouth/Throat: Dry Mouth - Cardiovascular Cardiovascular: absent: As Per HPI, Acrocyanosis, Chest Pain, Chest Pain at Rest , Chest Pain with Activity, Claudication, Diaphoresis, Dyspnea, Dyspnea on Exertion, Edema, Irregular Heart Rhythm, Pain Radiating to Arm/Neck/Jaw, Leg Edema, Leg Ulcers, Lightheadedness, Orthopnea, Palpitations, Paroxysmal Nocturnal Dyspnea, Pedal Edema, Radiating Pain, Rapid Heart Rate, Slow Heart Rate, Syncope, Other - Respiratory Respiratory: Cough, Dyspnea - Gastrointestinal Gastrointestinal: absent: As Per HPI, Abdominal Pain, Belching, Bloating, Change in Bowel Habits, Change in Stool Character, Coffee Ground Emesis, Constipation, Cramping, Diarrhea, Dyspepsia, Dysphagia, Early Satiety, Excessive Flatus, Fecal Incontinence, Heartburn, Hematemesis, Hematochezia, Loose Stools, Melena, Nausea, Odynophagia, Temesmus, Vomiting, Other - Genitourinary Additional comments: Hematuria - Musculoskeletal Musculoskeletal: absent: As Per HPI, Abnormal Gait, Arthralgias, Atrophy, Back Pain, Deformity, Joint Swelling, Limited Range of Motion, Loss of Height, Muscle Cramps, Muscle Weakness, Myalgias, Neck Pain, Numbness, Radiating Pain into Limb, Stiffness, Tingling, Other - Integumentary Integumentary: Dry Skin - Neurological Neurological: absent: As Per HPI, Abnormal Gait, Abnormal Hearing, Abnormal Movements, Abnormal Speech, Behavioral Changes, Burning Sensations, Confusion, Convulsions, Disequilibrium, Dizziness, Numbness, Focal Weakness, Frequent Falls , Headaches, Lack of Coordination, Loss of Vision, Memory Loss, Paresthesias, Radicular Pain, Restless Legs, Sensory Deficit, Syncope, Tingling, Tremor, Vertigo, Weakness, Other Visual Disturbances, Other - Psychiatric Psychiatric: absent: As Per HPI, Abnormal Sleep Pattern, Anhedonia, Anxiety, Auditory Hallucinations, Behavioral Changes, Change in Appetite, Change in Libido, Confusion, Depression, Difficulty Concentrating, Hallucinations, Homicidal Ideation, Hopelessness, Irritability, Memory Loss, Mood Swings, Panic Attacks, Paranoia, Suicidal Ideation, Visual Hallucinations, Tactile Hallucinations, Other - Endocrine Endocrine: absent: As Per HPI, Change in Body Appearance, Change in Libido, Cold Intolorance, Deepening of Voice, Excessive Sweating, Fatigue, Flushing, Heat Intolorance, Increase in Ring/Shoe/Hat Size, Palpitations, Polydipsia, Polyphagia, Polyuria, Other - Hematologic/Lymphatic Additional comments: Blood in urine Past Patient History - Infectious Disease Hx of Infectious Diseases: None - Past Medical History & Family History Past Medical History?: Yes - Past Social History Smoking Status: Current Some Days Smoker - CARDIAC Hx Cardiac Disorders: Yes Hx Hypertension: Yes - PULMONARY Hx Respiratory Disorders: No - NEUROLOGICAL Hx Neurological Disorder: No - HEENT Hx HEENT Problems: Yes Other/Comment: WEAR EYEGLASSES FOR READING - RENAL Hx Chronic Kidney Disease: No - ENDOCRINE/METABOLIC Hx Endocrine Disorders: No - HEMATOLOGICAL/ONCOLOGICAL Hx Blood Disorders: No - INTEGUMENTARY Hx Dermatological Problems: No - MUSCULOSKELETAL/RHEUMATOLOGICAL Hx Falls: No - GASTROINTESTINAL Hx Gastrointestinal Disorders: No - GENITOURINARY/GYNECOLOGICAL Hx Genitourinary Disorders: Yes Hx Hematuria: Yes Hx Prostate Problems: Yes - PSYCHIATRIC Hx Substance Use: No - SURGICAL HISTORY Hx Surgeries: Yes Hx Cholecystectomy: Yes Hx Coronary Stent: Yes Other/Comment: Resection of prostrate (02-25-2017) - ANESTHESIA Hx Anesthesia: Yes Hx Anesthesia Reactions: No Hx Malignant Hyperthermia: No Has any member of the family had a problem w/ anesthesia?: No Meds Allergies/Adverse Reactions: Allergies Allergy/AdvReac Type Severity Reaction Status Date / Time No Known Allergies Allergy Verified 02/22/17 09:05 - Medications Medications: Current Medications Acetaminophen (Tylenol 325mg Tab) 650 mg PO Q6 PRN PRN Reason: Pain Acetylcysteine (Acetylcysteine 20%) 4 ml INH RQ6 [facility] Cyclobenzaprine HCl (Flexeril) 5 mg PO HS PRN PRN Reason: Muscle spasm Last Admin: 03/24/17 21:34 Dose: 5 mg Diltiazem HCl (Cardizem) 30 mg PO TID [facility] Last Admin: 03/26/17 09:50 Dose: 30 mg Famotidine (Pepcid) 20 mg PO DAILY [facility] Last Admin: 03/26/17 09:50 Dose: 20 mg Finasteride (Proscar) 5 mg PO DAILY [facility] Last Admin: 03/26/17 09:51 Dose: 5 mg Guaifenesin (Robitussin) 100 mg PO Q4H PRN PRN Reason: Cough Last Admin: 03/24/17 21:33 Dose: 100 mg Ceftriaxone Sodium 1 gm/ (Sodium Chloride) 100 mls @ 100 mls/hr IVPB DAILY [facility] Last Admin: 03/26/17 09:50 Dose: 100 mls/hr Sodium Chloride (Sodium Chloride 0.9%) 1,000 mls @ 150 mls/hr IV .Q6H40M [facility] Last Admin: 03/26/17 04:30 Dose: 150 mls/hr Multivitamins (Hexavitamin) 1 tab PO DAILY [facility] Last Admin: 03/26/17 09:50 Dose: 1 tab Ondansetron HCl (Zofran Inj) 4 mg IVP Q6H PRN PRN Reason: Nausea/Vomiting Rosuvastatin Calcium (Crestor) 5 mg PO HS [facility] Last Admin: 03/25/17 22:05 Dose: Not Given Tamsulosin HCl (Flomax) 0.4 mg PO DAILY [facility] Last Admin: 03/26/17 09:50 Dose: 0.4 mg Tramadol HCl (Ultram) 50 mg PO Q6H PRN PRN Reason: Pain, moderate (4-7) Last Admin: 03/23/17 17:30 Dose: 50 mg Physical Exam - Constitutional Appears: No Acute Distress - Head Exam Head Exam: ATRAUMATIC - Eye Exam Eye Exam: EOMI, Normal appearance, PERRL Pupil Exam: NORMAL ACCOMODATION, PERRL - ENT Exam ENT Exam: Mucous Membranes Dry, Normal Exam - Neck Exam Neck exam: Positive for: Normal Inspection - Respiratory Exam Respiratory Exam: Decreased Breath Sounds, NORMAL BREATHING PATTERN - Cardiovascular Exam Cardiovascular Exam: REGULAR RHYTHM, +S1, +S2 - GI/Abdominal Exam GI & Abdominal Exam: Normal Bowel Sounds, Soft - Rectal Exam Rectal Exam: Deferred - Exam Additional comments: Fuller cath, bloody urine - Extremities Exam Extremities exam: Positive for: normal capillary refill, normal inspection, pedal pulses present - Back Exam Back exam: NORMAL INSPECTION - Neurological Exam Neurological exam: Alert, Oriented x3, Reflexes Normal - Psychiatric Exam Psychiatric exam: Anxious, Normal Affect, Normal Mood - Skin Skin Exam: Intact, Normal Color, Warm Results - Vital Signs Recent Vital Signs: Last Vital Signs Temp 98 F 03/26/17 08:00 Pulse 66 03/26/17 11:00 Resp 21 03/26/17 11:00 BP 131/51 L 03/26/17 10:53 Pulse Ox 99 03/26/17 11:00 - Labs Result Diagrams: 03/26/17 06:29 03/26/17 06:29 Labs: Laboratory Results - last 24 hr 03/25/17 03/25/17 03/25/17 13:06 13:06 14:21 WBC 10.3 RBC 2.92 L Hgb 9.5 L Hct 28.5 L MCV 97.4 H MCH 32.6 H MCHC 33.5 RDW 15.8 H Plt Count 227 MPV 9.2 Neut % (Auto) 74.4 Lymph % (Auto) 10.8 L [place] % (Auto) 13.1 H Eos % (Auto) 1.3 Baso % (Auto) 0.4 Neut # 7.6 H Lymph # 1.1 [place] # 1.3 H Eos # 0.1 Baso # 0.0 Sodium 138 Potassium 3.7 Chloride 101 Carbon Dioxide 23 Anion Gap 17 BUN 25 H Creatinine 1.4 Est GFR ( Amer) 58 Est GFR (Non-Af Amer) 48 Random Glucose 100 Calcium 7.9 L Phosphorus 4.3 Magnesium 2.2 Total Bilirubin 0.5 AST 31 ALT 13 L D Alkaline Phosphatase 78 Total Protein 6.4 Albumin 3.1 L Globulin 3.2 Albumin/Globulin Ratio 1.0 Blood Type A POSITIVE Blood Type Confirm A POSITIVE Antibody Screen Negative 03/26/17 03/26/17 06:29 06:29 WBC 7.7 RBC 2.85 L Hgb 9.3 L Hct 27.8 L MCV 97.4 H MCH 32.7 H MCHC 33.6 RDW 15.7 H Plt Count 192 MPV 9.2 Neut % (Auto) 70.2 Lymph % (Auto) 12.6 L [place] % (Auto) 13.4 H Eos % (Auto) 3.2 Baso % (Auto) 0.6 Neut # 5.4 Lymph # 1.0 [place] # 1.0 H Eos # 0.2 Baso # 0.0 Sodium 138 Potassium 3.9 Chloride 107 Carbon Dioxide 21 L Anion Gap 14 BUN 18 Creatinine 1.1 Est GFR ( Amer) > 60 Est GFR (Non-Af Amer) > 60 Random Glucose 94 Calcium 7.2 L Phosphorus 3.6 Magnesium 2.1 Total Bilirubin 0.5 AST 25 ALT 20 L D Alkaline Phosphatase 71 Total Protein 5.9 L Albumin 2.9 L Globulin 3.0 Albumin/Globulin Ratio 1.0 Blood Type Blood Type Confirm Antibody Screen Assessment & Plan - Assessment and Plan (Free Text) Assessment: Palliative consult Code status Full Code. There is no advance directive on chart. PPS 40% I reviewed medical records, all diagnostic studies, examined and interviewed patient in the bed. Goals of care discussed with patient. Patient is alert, oriented X 3 in no acute distress. There is a dry cough noted. Abdomen soft. Fuller cath at bed side, urine maroon colored. VS stable. patient is afebrile. I discussed these findings with the patient. Patient denies knowledge about what could be causing his bloody urine. Patient reports seeing Doctor regularly and visiting ER for the same reason, but was never told the reason for his symptoms. Patient claims "Doctors always talk to my and my son". Patient avoids eye contact during the interview. Patient looks depressed. Patient admits being tired of often hospitalizations and is missing his home. Patient states having no appetite due to hospital's food he is not used to. he also complains having difficulties chewing the food as he is edentulous. We agreed that his may be bringing food from home when she visits. I called patient's at the number provided and left the message. Impression * Patient is with hematuria secondary to prostate CA * Body image disturbance secondary to Fuller cath * Patient is denial , denies knowledge of any serious diagnosis * Patient is depressed * Decreased appetite Suggestion * Will continue getting in touch with patient;s to discuss patient's diagnosis and further goals of care, based on the CT chest results * Will advise patient's to bring in the home cooked food * Offer PO fluids as tolerated * Discharge home would help alleviate patient's depressed mood and would increase his appetite. I will continue to fallow and support this patient until discharge. Thank you for consulting palliative care.
--- NOTE | 2017-03-26 12:20 | CON ---
DATE: 03/22/2017 REASON FOR CONSULTATION: Hematuria. HISTORY OF PRESENT ILLNESS: The patient is a very pleasant gentleman, an elderly 86-year-old gentlem an, who we recently diagnosed with prostate cancer. He was a patient of Dr. Doyle who asked me to care for the patient further. He had urinary retention. We did a TURP. The pathology shows a Jayce son 8 or 9 prostate cancer. The report is not in front of me ____ but a significantly high grade pro state cancer. Post TURP, the patient was voiding okay but he was having some difficulty. He subsequ ently was readmitted with hematuria and retention. See the previously dictated notes. Then we gave the patient a voiding trial. We saw residuals of about 200 mL. We were trying to withh old putting the catheter back in, but subsequently he had the catheter reinserted with the presence o f some hematuria. The patient has been at home now. I have spoken to the family several times. You can actually can s ee the previously dictated note. He is being admitted now and I am on consultation on 03/22/2017 her e. The patient was in the ER yesterday, on 03/21/2017. I had a chance to speak to the ER. Really, after talking to the family, it is an issue of catheter care. The urine is okay and he is not having any pain or discomfort, but this persistent blood. See the plans listed below and see the hematocri t. The patient's hematocrit is stable at about 34% or so. See the previous labs from previous admission s. But he has the presence of some underlying blood in the urine. Bur really the issue (see below) - the patient is being admitted for catheter care and catheter teach ing. Although our real plan is to remove the catheter. Will give it a day or so where we irrigate the cat heter (see below). In the interim, the patient is being readmitted now. He has had many, many previous visits to the ER. In the interim, no fever, chills, nausea, vomiting. PAST MEDICAL AND SURGICAL HISTORY: A patient of Dr. Buenrostro. REVIEW OF SYSTEMS: ____ noncontributory. SOCIAL HISTORY: He is here with his family. I spoke to the son several times and his daughter as we ll. No other major urologic ____ significant social issues. PHYSICAL EXAMINATION: GENERAL: Well-nourished male. He is currently resting comfortably. ABDOMEN: Relatively soft. There is a Fuller catheter in place; blood-tinged urine is noted. LABORATORIES: See chart. The white count is 14,000 (a little bit elevated), hemoglobin is 10.7, hematocrit is 33%. The remainder of the labs are as follows: BUN and creatinine are noted to be 19/1.3; this is within normal limits. DIAGNOSES: 1. Prostate cancer. 2. Urinary retention. 3. Hematuria. ASSESSMENT AND PLAN: This is a very pleasant gentleman. He is an 86-year-old. He is having difficu lty with catheterization at home. The goal will be to try to get the catheter out altogether. So we are going to plan for the following. We are going to observe the patient in the hospital. Alber deleon monitor him closely. Will have the nurses irrigate the Fuller catheter and try to remove it as quic kly as possible. It is conceivable that the patient will require repeat cystoscope and to evacuate a ny clots, but it does not seem to be overly heavily, and the patient is not overly uncomfortable. Will see how he does for the weekend and then make some decisions. Then further plans will follow. Thank you for the urology consult. Brent Gill MD cc: [id number] TT: 03/26/2017 09:24:12 Confirmation # [id number] Dictation # [id number] mn
[2017-03-26] MEDS: Acetylcysteine 20% Inhal Soln (4ml) INH SCH (13:44)
--- NOTE | 2017-03-26 13:59 | PN ---
DATE: 03/26/2017 The patient is currently in sinus rhythm. He denies any palpitation, dizziness or chest pain. PHYSICAL EXAMINATION: VITAL SIGNS: Blood pressure 131/51, heart rate 66, respirations 21, temperature 98. HEENT: Pale conjunctivae. CHEST: Minimal rhonchi. HEART: S1, S2 regular. EXTREMITIES: No pedal edema. LABORATORIES: Today's hemoglobin and hematocrit 9.3 and 27.8, white count and platelet count are wit hin normal limits. Today's SMA-7 is within normal limits except for carbon dioxide of 21. Chest CT scan was performed as well as abdomen and pelvis CT scans. The reports are still pending. ASSESSMENT: 1. Metastatic prostatic carcinoma. 2. Status post paroxysm of atrial fibrillation. 3. Improving hematuria. 4. Anemia. RECOMMENDATIONS: Continue current Cardizem at 30 mg t.i.d., IV Rocephin at 1 gram daily, Crestor at 5 mg once a day, Zofran at 4 mg intravenously q. 6 hours p.r.n., normal saline at 75 mL an hour. I w ill reorder a TSH level as I do not see any result for that test. The patient is not a suitable cand idate for anticoagulation unless cleared from the urology point of view. Osmani Rubin MD cc: [id number] TT: 03/26/2017 13:58:12 Confirmation # [id number] Dictation # [id number] tn
--- NOTE | 2017-03-26 17:14 | CT ---
CT chest without IV contrast Indication: Triple AAA Technique: Contiguous axial images were obtained through the chest without intravenous contrast enhancement. Sagittal and coronal reconstructions were generated and reviewed. This CT exam was performed using 1 or more of the falling dose reduction techniques: Automated exposure control, adjustment of the MAA and/or kV according to patient size, and/or use of iterative reconstruction technique. Radiation dose (DLP): 359.33 MGy-cm. Comparison: CT chest without IV contrast performed 01/26/15 Findings: Visualized portions of the inferior thyroid gland appear unremarkable. The unenhanced mediastinal and hilar vascular structures appear grossly unremarkable. The heart appears within normal limits of size. At the level of right main pulmonary artery, the ascending aorta measures 3.8 cm transverse diameter, previously 3.8 cm when remeasured in a similar position. Proximal descending aorta measures approximately 3.8 cm transverse diameter, previously 3.6 cm when remeasured in a similar position. 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 The aneurysm sac measures approximately 7.1 cm in transverse dimension, grossly stable when remeasured in a similar position. Emphysematous changes. Small to moderate left and trace right pleural effusions. Bibasilar atelectasis. No pneumothorax. Sgvi-zgsywov-gknm-right soft tissue consistent with gynecomastia. Visualized noncontrast upper abdomen reveals cholecystectomy clips. Degenerative changes. Impression: Limited evaluation of thoracic aneurysm due to lack of IV contrast. At the level of right main pulmonary artery, the ascending aorta measures 3.8 cm transverse diameter, previously 3.8 cm when remeasured in a similar position. Proximal descending aorta measures approximately 3.8 cm transverse diameter, previously 3.6 cm when remeasured in a similar position. Descending thoracic aortic aneurysm and aortic graft reidentified. The aneurysm sac measures approximately 7.1 cm in transverse dimension, grossly stable when remeasured in a similar position. Emphysematous changes. Small to moderate left and trace right pleural effusions. Bibasilar atelectasis. Dafd-mcmxpih-rbds-right soft tissue consistent with gynecomastia. Cholecystectomy.
[2017-03-27 07:05] LABS: BASO % 0.8 % (0.0-2.0); EOS # 0.3 K/uL (0.0-0.7); LYMPH % 16.5 % (20.0-40.0); MEAN CELL VOLUME 97.4 fL (80.0-94.0); MEAN CORPUSCULAR HEMOGLOBIN 32.2 pg (27.0-31.0); MEAN CORPUSCULAR HGB CONC 33.1 g/dL (33.0-37.0); MONO # 0.8 K/uL (0.0-0.8); MONO % 13.9 % (0.0-10.0); RED CELL DISTRIBUTION WIDTH 15.4 % (11.5-14.5); WHITE BLOOD COUNT 5.9 K/uL (4.8-10.8)
[2017-03-27 07:24] LABS: CHLORIDE 106 mmol/L (98-107)
[2017-03-27 07:25] LABS: POTASSIUM 4.3 mmol/L (3.6-5.2); SODIUM 142 mmol/L (132-148)
[2017-03-27 07:27] LABS: BILIRUBIN,TOTAL 0.6 mg/dL (0.2-1.3); CARBON DIOXIDE 28 mmol/L (22-30); GFR AFRICAN-AMERICAN > 60
[2017-03-27 07:28] LABS: ALKALINE PHOSPHATASE 79 U/L (38-126); ALT/SGPT 27 U/L (21-72); AST/SGOT 25 U/L (17-59); BLOOD UREA NITROGEN 9 mg/dL (9-20); CALCIUM 7.6 mg/dl (8.6-10.4); GLUCOSE,RANDOM 86 mg/dL (75-110); PHOSPHOROUS 3.1 mg/dL (2.5-4.5)
[2017-03-27 07:32] LABS: ALB/GLOB RATIO 0.9 (1.0-2.1)
--- NOTE | 2017-03-27 09:11 | PCM.URO ---
Urology Progress Note - Objective Lab Results Last 24 Hours: Laboratory Results - last 24 hr 03/26/17 03/27/17 03/27/17 16:43 06:59 06:59 WBC 5.9 RBC 2.78 L Hgb 8.9 L Hct 27.0 L MCV 97.4 H MCH 32.2 H MCHC 33.1 RDW 15.4 H Plt Count 213 MPV 9.0 Neut % (Auto) 63.8 Lymph % (Auto) 16.5 L [place] % (Auto) 13.9 H Eos % (Auto) 5.0 H Baso % (Auto) 0.8 Neut # 3.8 Lymph # 1.0 [place] # 0.8 Eos # 0.3 Baso # 0.0 Sodium 142 Potassium 4.3 Chloride 106 Carbon Dioxide 28 Anion Gap 13 BUN 9 Creatinine 1.0 Est GFR ( Amer) > 60 Est GFR (Non-Af Amer) > 60 Random Glucose 86 Calcium 7.6 L Phosphorus 3.1 Magnesium 2.0 Total Bilirubin 0.6 AST 25 ALT 27 Alkaline Phosphatase 79 Total Protein 6.0 L Albumin 2.9 L Globulin 3.1 Albumin/Globulin Ratio 0.9 L TSH 3rd Generation 1.72 Intake & Output: Intake & Output 03/26/17 03/27/17 03/27/17 18:59 06:59 18:59 Intake Total 1545 850 Output Total 420 2450 Balance 1125 -1600 Intake: Intake, IV Amount 925 450 Left Wrist 850 450 Right Forearm 75 Oral 620 400 Output: Urine 420 2450 3-way Urethral 420 2450 Other: # Bowel Movements 0 Vital Signs: Vital Signs - 24 hr 03/26/17 03/26/17 03/26/17 09:53 10:00 10:53 Temperature Pulse Rate 67 69 66 Respiratory 20 22 16 Rate Blood Pressure 127/55 L 131/51 L O2 Sat by Pulse 98 98 99 Oximetry 03/26/17 03/26/17 03/26/17 11:00 12:00 13:00 Temperature 97.7 F Pulse Rate 66 59 L 72 Respiratory 21 23 17 Rate Blood Pressure O2 Sat by Pulse 99 100 96 Oximetry 03/26/17 03/26/17 03/26/17 15:00 15:44 23:15 Temperature 97.4 F L 98.3 F Pulse Rate 70 58 L 60 Respiratory 20 20 Rate Blood Pressure 144/64 135/61 O2 Sat by Pulse 96 95 Oximetry 03/27/17 07:00 Temperature 98.5 F Pulse Rate 65 Respiratory 20 Rate Blood Pressure 159/65 H O2 Sat by Pulse 95 Oximetry
[2017-03-27] MEDS: Multiple Vitamins Tab PO SCH (09:17)
--- NOTE | 2017-03-27 11:45 | CT ---
PROCEDURE: CT Abdomen and Pelvis without intravenous contrast HISTORY: hematurai COMPARISON: Comparison is made to the previous study dated 02/24/2014 TECHNIQUE: Axial and reformatted coronal and sagittal CT images of the abdomen and pelvis were obtained without IV or oral contrast administration.. Contrast Dose: 0 Radiation dose: Total exam DLP = 447.54 mGy-cm. This CT exam was performed using one or more of the following dose reduction techniques: Automated exposure control, adjustment of the mA and/or kV according to patient size, and/or use of iterative reconstruction technique. FINDINGS: LOWER THORAX: Interval appearance of small left pleural effusion since the previous exam. The heart is mildly enlarged. LIVER: No significant interval change in the liver noted since the previous exam. GALLBLADDER AND BILE DUCTS: Patient status post cholecystectomy PANCREAS: Unremarkable. No gross lesion or ductal dilatation. SPLEEN: Unremarkable. ADRENALS: Unremarkable. No mass. KIDNEYS AND URETERS: Mild left hydronephrosis is noted. There is a punctate calcification at the mid pole right kidney may represent 3 millimeter nonobstructing renal calculi. There is a small calcification at the left kidney likely vascular. VASCULATURE: Again seen is distal descending thoracic aorta aneurysm as discussed in the CT of the chest done on the same day BOWEL: Unremarkable. No obstruction. No gross mural thickening. APPENDIX: No evidence of appendicitis. PERITONEUM: Unremarkable. No free fluid. No free air. LYMPH NODES: Interval appearance of large retroperitoneal lymphadenopathy at the mid and lower abdomen also left common iliac chain lymphadenopathy seen. BLADDER: There is a Fuller catheter in the bladder. REPRODUCTIVE: The prostate is moderately to markedly enlarged heterogeneous contains foci of calcification. BONES: No acute fracture. OTHER FINDINGS: None. IMPRESSION: Interval appearance of large retroperitoneal lymphadenopathy. Findings suspicious for malignant neoplasm could represent metastasis from versus lymphoma or leukemia. Interval mild increase in the size of the distal descending thoracic aorta aneurysm since the previous exam with possible type 1 endoleak as discussed in the CT of the chest done on the same date. Enlarged prostate. Correlate clinically for prostate cancer. Interval appearance of small left pleural effusion since the previous study. Small opacities at the lung bases likely atelectasis. Preliminary report was submitted by [facility].
--- NOTE | 2017-03-27 11:56 | CARD ---
APPROVED REPORT EKG Measurement Heart [id number] <Conclusion> Atrial fibrillation with rapid ventricular response Nonspecific ST and T wave abnormality, probably digitalis effect Abnormal ECG
[2017-03-27 15:00] VITALS: RESP 20
--- NOTE | 2017-03-27 15:07 | PN ---
DATE: 03/27/2017 The patient denies any palpitation or chest pain. No dizziness. PHYSICAL EXAMINATION: VITAL SIGNS: Blood pressure 154/62, heart rate 61, temperature 98, respirations 18. HEENT: Pale conjunctivae. CHEST: Clear. HEART: S1, S2 regular. ABDOMEN: Soft. EXTREMITIES: No edema. LABORATORIES: Hemoglobin and hematocrit 8.9 and 27, white count and platelet count are within normal limits today. Today's SMA-7 is entirely within normal limits. Calcium is below normal at 7.6. TSH level done yesterday is within normal limits at 1.72. ASSESSMENT: 1. Paroxysmal atrial fibrillation. 2. Metastatic prostatic carcinoma. 3. Anemia. 4. Hematuria. RECOMMENDATIONS: Continue current Cardizem at 30 mg t.i.d., IV Rocephin at 1 gram daily, Crestor at 5 mg once a day, Flomax 0.4 mg daily, Proscar 5 mg once a day. Fpc anticoagulation may not be justified in view of still ongoing mild degree of hematuria, as well as the advanced metastatic stage of prostatic cancer. Osmani Rubin MD cc: [id number] TT: 03/27/2017 15:06:45 Confirmation # [id number] Dictation # [id number]
[2017-03-27] MEDS: Sodium Chloride 0.9% 1,000 ML IV SCH (19:00)
[2017-03-28 06:26] LABS: BASO % 0.6 % (0.0-2.0); EOS # 0.3 K/uL (0.0-0.7); EOS % 4.8 % (0.0-4.0); HEMATOCRIT 33.6 % (35.0-51.0); LYMPH # 0.9 K/uL (1.0-4.3); LYMPH % 15.4 % (20.0-40.0); MEAN CELL VOLUME 93.8 fL (80.0-94.0); MEAN CORPUSCULAR HEMOGLOBIN 31.4 pg (27.0-31.0); MEAN CORPUSCULAR HGB CONC 33.5 g/dL (33.0-37.0); MEAN PLATELET VOLUME 8.7 fL (7.2-11.7); MONO # 0.8 K/uL (0.0-0.8); RED CELL DISTRIBUTION WIDTH 16.8 % (11.5-14.5)
[2017-03-28 06:44] LABS: CHLORIDE 101 mmol/L (98-107); POTASSIUM 3.6 mmol/L (3.6-5.2); SODIUM 139 mmol/L (132-148)
[2017-03-28 06:46] LABS: BILIRUBIN,TOTAL 0.9 mg/dL (0.2-1.3); GFR AFRICAN-AMERICAN > 60
[2017-03-28 06:47] LABS: ALB/GLOB RATIO 1.1 (1.0-2.1); ALKALINE PHOSPHATASE 88 U/L (38-126); ALT/SGPT 27 U/L (21-72); AST/SGOT 29 U/L (17-59); BLOOD UREA NITROGEN 10 mg/dL (9-20); CALCIUM 7.6 mg/dl (8.6-10.4); CARBON DIOXIDE 28 mmol/L (22-30); GLUCOSE,RANDOM 87 mg/dL (75-110); PHOSPHOROUS 3.2 mg/dL (2.5-4.5); TOTAL PROTEIN 6.4 g/dL (6.3-8.3)
[2017-03-28 06:48] LABS: MAGNESIUM 1.8 mg/dL (1.6-2.3)
[2017-03-28] MEDS: Multiple Vitamins Tab PO SCH (09:22)
--- NOTE | 2017-03-28 11:00 | CP.PCM.CON ---
History of Present Illness - History of Present Illness History of Present Illness: Consult note for Dr. Salinas: Patient is an 86 year old male with past medical history of metastatic prostate cancer, CAD, thoracic aortic aneurysm s/p endograft, HTN, HLD, COPD, who presented to the hospital with complaint of hematuria. Young catheter was placed with irrigation of clots. Patient developed afib with RVR and was transferred to ICU. Patient was seen by systems security consultant Dr. Rubin and started on cardizem. Patient is now on telemetry floor. Patient's hematuria has resolved per the patient and young catheter was removed. Vascular surgery was consulted due to patient's history of aortic aneurysm and type [address] scan. 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, ribs, and pelvis s/p TURP on 02/25/17, Degenerative Spine, CAD with coronary stent (Stress test 03/11 showed EF 60%), aortic aneurysm s/p Endograft, HTN, HLD, COPD PSHx: TURP, aortic aneurysm with endograft All: NKDA SHx: Admits to smoking tobacco more than 60 years, denied alcohol and illicit drug use FHx: Unremarkable Review of Systems - Constitutional Constitutional: absent: Chills, Fever - EENT Nose/Mouth/Throat: absent: Sore Throat - Cardiovascular Cardiovascular: absent: Chest Pain, Dyspnea - Respiratory Respiratory: absent: Dyspnea - Gastrointestinal Gastrointestinal: absent: Abdominal Pain, Nausea, Vomiting - Genitourinary Genitourinary: absent: Dysuria, Hematuria - Musculoskeletal Musculoskeletal: absent: Back Pain - Integumentary Integumentary: absent: Rash - Neurological Neurological: absent: Dizziness - Psychiatric Psychiatric: Change in Appetite Past Patient History - Infectious Disease Hx of Infectious Diseases: None - Past Medical History & Family History Past Medical History?: Yes - Past Social History Smoking Status: Current Some Days Smoker - CARDIAC Hx Cardiac Disorders: Yes Hx Hypertension: Yes - PULMONARY Hx Respiratory Disorders: No - NEUROLOGICAL Hx Neurological Disorder: No - HEENT Hx HEENT Problems: Yes Other/Comment: WEAR EYEGLASSES FOR READING - RENAL Hx Chronic Kidney Disease: No - ENDOCRINE/METABOLIC Hx Endocrine Disorders: No - HEMATOLOGICAL/ONCOLOGICAL Hx Blood Disorders: No - INTEGUMENTARY Hx Dermatological Problems: No - MUSCULOSKELETAL/RHEUMATOLOGICAL Hx Falls: No - GASTROINTESTINAL Hx Gastrointestinal Disorders: No - GENITOURINARY/GYNECOLOGICAL Hx Genitourinary Disorders: Yes Hx Hematuria: Yes Hx Prostate Problems: Yes - PSYCHIATRIC Hx Substance Use: No - SURGICAL HISTORY Hx Surgeries: Yes Hx Cholecystectomy: Yes Hx Coronary Stent: Yes Other/Comment: Resection of prostrate (02-25-2017) - ANESTHESIA Hx Anesthesia: Yes Hx Anesthesia Reactions: No Hx Malignant Hyperthermia: No Has any member of the family had a problem w/ anesthesia?: No Meds Allergies/Adverse Reactions: Allergies Allergy/AdvReac Type Severity Reaction Status Date / Time No Known Allergies Allergy Verified 02/22/17 09:05 - Medications Medications: Current Medications Acetaminophen (Tylenol 325mg Tab) 650 mg PO Q6 PRN PRN Reason: Pain Cyclobenzaprine HCl (Flexeril) 5 mg PO HS PRN PRN Reason: Muscle spasm Last Admin: 03/24/17 21:34 Dose: 5 mg Diltiazem HCl (Cardizem) 30 mg PO TID [facility] Last Admin: 03/28/17 10:00 Dose: 30 mg Famotidine (Pepcid) 20 mg PO DAILY [facility] Last Admin: 03/28/17 09:22 Dose: 20 mg Finasteride (Proscar) 5 mg PO DAILY [facility] Last Admin: 03/28/17 09:22 Dose: 5 mg Guaifenesin (Robitussin) 100 mg PO Q4H PRN PRN Reason: Cough Last Admin: 03/24/17 21:33 Dose: 100 mg Sodium Chloride (Sodium Chloride 0.9%) 1,000 mls @ 75 mls/hr IV .[id number] [facility] Last Admin: 03/27/17 19:00 Dose: 75 mls/hr Multivitamins (Hexavitamin) 1 tab PO DAILY [facility] Last Admin: 03/28/17 09:22 Dose: 1 tab Ondansetron HCl (Zofran Inj) 4 mg IVP Q6H PRN PRN Reason: Nausea/Vomiting Rosuvastatin Calcium (Crestor) 5 mg PO HS [facility] Last Admin: 03/27/17 21:24 Dose: 5 mg Tamsulosin HCl (Flomax) 0.4 mg PO DAILY [facility] Last Admin: 03/28/17 09:22 Dose: 0.4 mg Tramadol HCl (Ultram) 50 mg PO Q6H PRN PRN Reason: Pain, moderate (4-7) Last Admin: 03/23/17 17:30 Dose: 50 mg Physical Exam - Constitutional Appears: No Acute Distress - Head Exam Head Exam: ATRAUMATIC, NORMOCEPHALIC - Eye Exam Eye Exam: EOMI - ENT Exam ENT Exam: Mucous Membranes Moist - Respiratory Exam Respiratory Exam: NORMAL BREATHING PATTERN - Cardiovascular Exam Cardiovascular Exam: +S1, +S2 - GI/Abdominal Exam GI & Abdominal Exam: Normal Bowel Sounds, Soft, Tenderness (suprapubic) Additional comments: left lower quadrant soft palpable mass - Extremities Exam Additional comments: popliteal pulses palpable bilaterally - Neurological Exam Neurological exam: Alert - Psychiatric Exam Psychiatric exam: Normal Affect Results - Vital Signs Recent Vital Signs: Last Vital Signs Temp 98.2 F 03/28/17 08:41 Pulse 62 03/28/17 08:41 Resp 20 03/28/17 08:41 BP 156/73 H 03/28/17 08:41 Pulse Ox 98 03/28/17 08:41 - Labs Result Diagrams: 03/28/17 06:12 03/28/17 06:09 Labs: Laboratory Results - last 24 hr 03/25/17 03/28/17 03/28/17 13:06 06:09 06:12 WBC 6.0 RBC 3.58 L Hgb 11.3 L D Hct 33.6 L MCV 93.8 D MCH 31.4 H MCHC 33.5 RDW 16.8 H Plt Count 236 MPV 8.7 Neut % (Auto) 66.2 Lymph % (Auto) 15.4 L [place] % (Auto) 13.0 H Eos % (Auto) 4.8 H Baso % (Auto) 0.6 Neut # 4.0 Lymph # 0.9 L [place] # 0.8 Eos # 0.3 Baso # 0.0 Sodium 139 Potassium 3.6 Chloride 101 Carbon Dioxide 28 Anion Gap 14 BUN 10 Creatinine 1.0 Est GFR ( Amer) > 60 Est GFR (Non-Af Amer) > 60 Random Glucose 87 Calcium 7.6 L Phosphorus 3.2 Magnesium 1.8 Total Bilirubin 0.9 AST 29 ALT 27 Alkaline Phosphatase 88 Total Protein 6.4 Albumin 3.3 L Globulin 3.1 Albumin/Globulin Ratio 1.1 Blood Type A POSITIVE Blood Type Confirm A POSITIVE Antibody Screen Negative Assessment & Plan - Assessment and Plan (Free Text) Assessment: 86 year old male with history thoracic aortic aneurysm with endograft repair- type [address] scan - CT: distal end aortic graft does not abut [place] band aorta- likely type I endoleak - no acute intervention - patient will need to follow up with the surgeon who did endograft - CT with IV contrast would be needed for better visualization - D/W Dr. Salinas
--- NOTE | 2017-03-28 11:06 | PN ---
DATE: 03/28/2017 See the many previously dictated notes. The patient was given a voiding trial, reported adequately voiding. No other interim complaints. PHYSICAL EXAMINATION: Everything otherwise is unchanged. DIAGNOSES: Urinary retention, prostate cancer, gross hematuria, voiding dysfunction. PLAN: We are going to observe the patient. No interim changes. We will follow along. Brent Gill MD cc: [phone] TT: 03/28/2017 11:05:23 Confirmation # [id number] Dictation # [id number] pearl
--- NOTE | 2017-03-28 11:08 | CP.PCM.PN ---
Subjective - Date & Time of Evaluation Date of Evaluation: 03/28/17 Time of Evaluation: 10:50 - Subjective Subjective: Hospitalist Covering for Dr. Buenrostro Progress Note (Patient was seen and examined at 10:50 AM 03/28/17) 86 year old male (PMHx Metastatic Prostate CA, CAD, AAA, HTN, HLD, COPD) who presented to the ER 03/21/17 for Hematuria at which time a young catheter was placed and bladder was irrigated and patient sent home. He then returned the ER 03/22/17 due to continued Hematuria and was admitted for further treatment. ROS: NO blood in urine ("color like water") NO abdominal pain. NO n/v/d/c (had normal bowel movement yesterday) NO lightheadedness/dizziness NO palpitations/chest pain Feels generally weak NO Other complaints upon FULL ROS EXAM HEENT: NCA, EOMI, PERRLA, NO cervical lymphadenopathy, NO thyromegaly, NO pharyngeal erythema/exudate, Oral Mucosa and Nasal Turbinates are moist Cardio: NS1 and NS2 NO M/R/G Respiratory: CTA B/L NO R/R/W GI: BSx4, Soft, NT, NO HSM, NO guarding/rebound tenderness Extremities: NO edema, Capillary Refill is 2 seconds, Pulses are strong and equal (including Popliteal) Neuro: CN II through XII are grossly intact Assessment and Plan: 1). Hematuria Hgb/Hct is stable Proscar 5 mg PO 1x/day Flomax 0.4 mg PO 1x/day Urology Dr. Hafsa Gar 2). New onset A-fibrillation Diltiazem 30 mg PO TID Rate controlled NO anticoagulation for now considering the recent history of Hematuria Discuss with Cardiology Dr. Rubin as to if and when to start anticoagulation 3). Hx Metastatic Prostate CA (Sternum, Ribs, Pelvis) S/P TURP 02/25/17 F/U Palliative Care Consult 4). Hx CAD with Stent Stress Test 03/11/17 with EF 60% 5). Hx of Thoracic Aortic Aneurysm CT Chest 03/26/17 showed distal end of aortic graft scott not abut the [place] aorta and this likely represents Type [address]. [address] Salinas was consulted and no intervention at this time and patient will need to follow up with Vascular Surgeon who performed the procedure, as an outpatient (patient could not provide information as to who this Vascular Surgeon was) 6). Hx HTN Diltiazem 30 mg PO TID 7). Hx HLD Crestor 5 mg PO QHS 8). Hx COPD Ipratropium 0.02 % via Nebulizer Q6H PRN SOB/Wheezing Do NOT use beta agonist considering the new onset A-fib 9). Anemia Secondary Likely To Hematuria Monitor HgB/Hct 9). Prophylaxis Pepcid 20 mg PO 1x/day for GI Prophylaxis B/L SCDs for DVT Prophylaxis (NO anticoagulation considering the recent Hematuria) Tramadol 50 mg PO Q6H PRN Moderate Pain Tylenol 650 mg PO Q6H PRN Mild Pain Cyclobenzaprin 5 mg PO QHS PRN Muscle Spasm Gauifenensin 100 mg PO Q4H PRN Cough MVI Zofran 4 mg IV Q6H PRN N/V F/U morning 03/29/17 labs Garret Lawton D.O. Objective - Vital Signs/Intake and Output Vital Signs (last 24 hours): Temp Pulse Resp BP Pulse Ox 98.2 F 62 20 156/73 H 98 03/28/17 08:41 03/28/17 08:41 03/28/17 08:41 03/28/17 08:41 03/28/17 08:41 Intake and Output: 03/28/17 03/28/17 06:59 18:59 Intake Total 1000 Output Total 1700 Balance -700 - Medications Medications: Current Medications Acetaminophen (Tylenol 325mg Tab) 650 mg PO Q6 PRN PRN Reason: Pain Cyclobenzaprine HCl (Flexeril) 5 mg PO HS PRN PRN Reason: Muscle spasm Last Admin: 03/24/17 21:34 Dose: 5 mg Diltiazem HCl (Cardizem) 30 mg PO TID [facility] Last Admin: 03/28/17 10:00 Dose: 30 mg Famotidine (Pepcid) 20 mg PO DAILY [facility] Last Admin: 03/28/17 09:22 Dose: 20 mg Finasteride (Proscar) 5 mg PO DAILY [facility] Last Admin: 03/28/17 09:22 Dose: 5 mg Guaifenesin (Robitussin) 100 mg PO Q4H PRN PRN Reason: Cough Last Admin: 03/24/17 21:33 Dose: 100 mg Sodium Chloride (Sodium Chloride 0.9%) 1,000 mls @ 75 mls/hr IV .[id number] [facility] Last Admin: 03/27/17 19:00 Dose: 75 mls/hr Multivitamins (Hexavitamin) 1 tab PO DAILY [facility] Last Admin: 03/28/17 09:22 Dose: 1 tab Ondansetron HCl (Zofran Inj) 4 mg IVP Q6H PRN PRN Reason: Nausea/Vomiting Rosuvastatin Calcium (Crestor) 5 mg PO HS [facility] Last Admin: 03/27/17 21:24 Dose: 5 mg Tamsulosin HCl (Flomax) 0.4 mg PO DAILY [facility] Last Admin: 03/28/17 09:22 Dose: 0.4 mg Tramadol HCl (Ultram) 50 mg PO Q6H PRN PRN Reason: Pain, moderate (4-7) Last Admin: 03/23/17 17:30 Dose: 50 mg - Labs Labs: 03/28/17 06:12 03/28/17 06:09 PT 13.3 SECONDS (9.7-12.2) H 03/23/17 12:33 INR 1.2 03/23/17 12:33 APTT 32 SECONDS (21-34) 03/23/17 12:33
--- NOTE | 2017-03-28 11:21 | PCM.URO ---
Urology Progress Note - Objective Lab Results Last 24 Hours: Laboratory Results - last 24 hr 03/25/17 03/28/17 03/28/17 13:06 06:09 06:12 WBC 6.0 RBC 3.58 L Hgb 11.3 L D Hct 33.6 L MCV 93.8 D MCH 31.4 H MCHC 33.5 RDW 16.8 H Plt Count 236 MPV 8.7 Neut % (Auto) 66.2 Lymph % (Auto) 15.4 L [place] % (Auto) 13.0 H Eos % (Auto) 4.8 H Baso % (Auto) 0.6 Neut # 4.0 Lymph # 0.9 L [place] # 0.8 Eos # 0.3 Baso # 0.0 Sodium 139 Potassium 3.6 Chloride 101 Carbon Dioxide 28 Anion Gap 14 BUN 10 Creatinine 1.0 Est GFR ( Amer) > 60 Est GFR (Non-Af Amer) > 60 Random Glucose 87 Calcium 7.6 L Phosphorus 3.2 Magnesium 1.8 Total Bilirubin 0.9 AST 29 ALT 27 Alkaline Phosphatase 88 Total Protein 6.4 Albumin 3.3 L Globulin 3.1 Albumin/Globulin Ratio 1.1 Blood Type A POSITIVE Blood Type Confirm A POSITIVE Antibody Screen Negative Intake & Output: Intake & Output 03/27/17 03/28/17 03/28/17 18:59 06:59 18:59 Intake Total 325 1000 Output Total 1700 Balance 325 -700 Intake: Intake, IV Amount 600 Left Wrist 600 Oral 400 Blood Product 325 Red Blood Cells Cpd As1 325 Lr Unit [id number] Output: Urine 1700 3-way Urethral 950 Urine, Voided 750 Other: # Voids 3-way Urethral 3 # Bowel Movements 0 Vital Signs: Vital Signs - 24 hr 03/27/17 03/27/17 03/27/17 11:23 11:49 12:03 Temperature 98.2 F 98.8 F 98.2 F Pulse Rate 63 75 64 Respiratory 18 18 18 Rate Blood Pressure 155/67 H 157/69 H 145/62 O2 Sat by Pulse 95 Oximetry 03/27/17 03/27/17 03/27/17 12:04 12:19 12:26 Temperature 98.2 F 97.9 F Pulse Rate 64 60 63 Respiratory 18 16 Rate Blood Pressure 145/62 155/73 H O2 Sat by Pulse Oximetry 03/27/17 03/27/1703/27/17 12:49 14:59 15:00 Temperature 98 F 98 F Pulse Rate 61 60 63 Respiratory 18 20 Rate Blood Pressure 154/62 H 146/60 O2 Sat by Pulse 95 Oximetry 03/27/17 03/27/17 03/27/17 15:02 16:26 23:15 Temperature 98 F 97.6 F 98.4 F Pulse Rate 61 58 L 61 Respiratory 20 20 20 Rate Blood Pressure 146/60 150/89 181/71 H O2 Sat by Pulse 97 96 Oximetry 03/28/17 03/28/17 03/28/17 02:22 07:00 08:41 Temperature 98.2 F Pulse Rate 63 61 62 Respiratory 20 Rate Blood Pressure 163/82 H 156/73 H O2 Sat by Pulse 98 Oximetry
--- NOTE | 2017-03-28 11:21 | PN ---
DATE: 03/26/2017 See the previously dictated consultation notes. The patient is well known to me. Prostate cancer, u rinary retention, postop TURP and hematuria. The patient was seen initially, but back on the admission, he was in the Emergency Room several times . He is currently resting comfortably. Over the weekend, he needed telemetry monitoring and then was p ut in the ICU and now he has actually been transferred back, but the ICU is just for telemetry monito ring. He has now subsequently been transferred back to the floor. A significant note see the plan below. The other notes are noted. PHYSICAL EXAMINATION: GENERAL: Well-nourished male in no apparent distress. VITAL SIGNS: Noted. ABDOMEN: Relatively soft. Fuller catheter is noted. DIAGNOSES: Hematuria, urinary retention, prostate cancer. From a urology standpoint, the patient has also been seen by oncology. His hematocrit is drifting do wn slowly. It started about 33 and 34, and now it is about 30. Whether he needs a transfusion or not, I will leave that to the medical service, Dr. Buenrostro, to Dr. Tosin porter. From urology standpoint, at some point, we would consider starting both Lupron therapy whether inpati ent or outpatient and whether I am going to be giving it or Dr. Wagoner is giving it will need to b e decided. Perhaps will also use Casodex or any antiandrogen along those lines. The other issue from a urology standpoint is planning for a voiding trial. The urine has actually cleared up very remarkably well. There is still the slow drift down, but the urine has cleared up. PLAN: We are going to make sure that patient is taking his Flomax, then we are going to give him a v oiding trial. Brent Gill MD cc: [id number] TT: 03/28/2017 11:20:18 Confirmation # [id number] Dictation # [id number] pearl
--- NOTE | 2017-03-28 16:34 | PN ---
DATE: 03/28/2017 The patient denies any chest pain, palpitation or dizziness. No further hematuria. PHYSICAL EXAMINATION: VITAL SIGNS: Blood pressure 160/70, heart rate 64, temperature 98.5, respirations 20. HEENT: Normocephalic. NECK: No JVD. CHEST: Clear. HEART: S1, S2 regular. EXTREMITIES: No edema. LABORATORIES: Today's hemoglobin and hematocrit 11.3 and 33.6, white count and platelet count are linwood th within normal limits. Today's SMA-7 is within normal limit. Calcium is below normal at 7.6. TSH level is 1.72. ASSESSMENT: 1. Paroxysmal atrial fibrillation. 2. Metastatic prostatic carcinoma. 3. Hematuria, which has resolved. 4. Mild anemia. RECOMMENDATIONS: Continue Cardizem at 30 mg t.i.d., Crestor at 5 mg once a day. Continue Flomax and Proscar. Continue normal saline at 75 mL an hour. Consider therapeutic subcutaneous Lovenox therap y if cleared from urological point of view. Osmani Rubin MD cc: [id number] TT: 03/28/2017 16:33:54 Confirmation # [id number] Dictation # [id number] en
[2017-03-28] MEDS ORDERED: Ipratropium 0.02% Inhal Soln (0.5 mg/2.5 ml) UD IH PRN (20:06)
--- NOTE | 2017-03-28 23:41 | PCM.URO ---
Urology Progress Note - General General: No Complaints, Tolerating Diet - Subjective Abdominal Pain: No Vomiting: No Voiding Well: Yes Hematuria: No [place]: Yes Chest Pain: No Fever & Chills: No - Objective Lab Results Last 24 Hours: Laboratory Results - last 24 hr 03/28/17 03/28/17 06:09 06:12 WBC 6.0 RBC 3.58 L Hgb 11.3 L D Hct 33.6 L MCV 93.8 D MCH 31.4 H MCHC 33.5 RDW 16.8 H Plt Count 236 MPV 8.7 Neut % (Auto) 66.2 Lymph % (Auto) 15.4 L [place] % (Auto) 13.0 H Eos % (Auto) 4.8 H Baso % (Auto) 0.6 Neut # 4.0 Lymph # 0.9 L [place] # 0.8 Eos # 0.3 Baso # 0.0 Sodium 139 Potassium 3.6 Chloride 101 Carbon Dioxide 28 Anion Gap 14 BUN 10 Creatinine 1.0 Est GFR ( Amer) > 60 Est GFR (Non-Af Amer) > 60 Random Glucose 87 Calcium 7.6 L Phosphorus 3.2 Magnesium 1.8 Total Bilirubin 0.9 AST 29 ALT 27 Alkaline Phosphatase 88 Total Protein 6.4 Albumin 3.3 L Globulin 3.1 Albumin/Globulin Ratio 1.1 Intake & Output: Intake & Output 03/28/17 03/28/17 03/29/17 06:59 18:59 06:59 Intake Total 1000 1000 500 Output Total 1700 Balance -700 1000 500 Intake: Intake, IV Amount 600 600 Left Wrist 600 600 Oral 400 400 500 Output: Urine 1700 3-way Urethral 950 Urine, Voided 750 Other: # Voids 3-way Urethral 3 0 Urine, Voided 3 3 # Bowel Movements 0 0 Vital Signs: Vital Signs - 24 hr 03/28/17 03/28/17 03/28/17 02:22 07:00 08:41 Temperature 98.2 F Pulse Rate 63 61 62 Respiratory 20 Rate Blood Pressure 163/82 H 156/73 H O2 Sat by Pulse 98 Oximetry 03/28/17 03/28/17 03/28/17 12:13 15:00 15:39 Temperature 98.5 F Pulse Rate 72 67 64 Respiratory 20 Rate Blood Pressure 162/70 H O2 Sat by Pulse 96 Oximetry 03/28/17 03/28/17 18:40 19:00 Temperature Pulse Rate 68 68 Respiratory Rate Blood Pressure O2 Sat by Pulse Oximetry - Physical Exam Abdominal Exam: Soft, Non-Tender, Non-Distended Back: No CVA Tenderness Genitalia: Without Inflammation Urine Color: Clear, Yellow - Plan Intake & Output: Yes Additional Information: IMP: PROSTATE CA. IMPROVED RE HEMATURIA AND RE RETENTION - Date & Time of Note Date: 03/27/17 Time: 14:45
--- NOTE | 2017-03-29 03:25 | PN ---
DATE: 03/26/2017 INTERVAL HISTORY: The patient was seen on 03/26/2017. He is not having any more hematuria. PHYSICAL EXAMINATION: VITAL SIGNS: Blood pressure 144/64, temperature 97.4, respiratory rate 20 and pulse 58. HEENT: Pupils equal, reactive to light. Normal-appearing mucosa of the conjunctivae, oropharyngeal and nasal membrane mucosa. NECK: Supple. No JVD, no carotid bruit, no lymph node, no thyromegaly. CHEST AND LUNGS: Bilateral symmetrical expansion, good air exchange. No rales, no rhonchi. CARDIOVASCULAR: . ABDOMEN: bowel sounds. No tenderness, no organomegaly, no masses. EXTREMITIES: No cyanosis, no clubbing and no edema. CENTRAL NERVOUS SYSTEM: Alert, awake, oriented x 2. No neurological deficits could be appreciated. ASSESSMENT: 1. Persistent hematuria. 2. Metastatic prostate cancer. 3. Anemia of acute blood loss. 4. Hypertension. PLAN: Continue bladder irrigation. Follow urologist's recommendations. Follow project geophysicist's re commendations. Jeanne Buenrostro MD cc: [phone] TT: 03/29/2017 03:24:23 Confirmation # [id number] Dictation # [id number] dn
--- NOTE | 2017-03-29 03:40 | PN ---
DATE: 03/27/2017 SUBJECTIVE: The patient's Fuller catheter was removed and patient still has some clots AND blood comes in the urine. Hemoglobin went down to 8.9 and patient was transfused 2 units packed RBCs per senior project coordinator. OBJECTIVE: VITAL SIGNS: Blood pressure 154/62, temperature 98, respiratory rate 18, pulse 61. HEENT: Pupils equal, reactive to light. Slightly pale mucosa of the conjunctivae. NECK: Supple. No JVD, no carotid bruit, no lymph node, no thyromegaly. CHEST AND LUNGS: Bilateral symmetrical expansion, good air exchange. No rales , no rhonchi. CARDIOVASCULAR SYSTEM: PMI not localized. S1, S2. No additional sounds. ABDOMEN: Normoactive bowel sounds. No tenderness, no organomegaly, no masses. EXTREMITIES: No cyanosis, no clubbing, no edema. CENTRAL NERVOUS SYSTEM: Alert, awake, oriented x 2. No neurological deficits could be appreciated. ASSESSMENT: 1. Persistent hematuria. 2. Metastatic prostate cancer. 3. Hypertension. PLAN: The patient is being transfused. monitor hemoglobin and hematocrit. Follow recommendations of both urology and Continue current medications. Discussed with patient's family at the bedside. Jeanne Buenrostro MD cc: [phone] TT: 03/29/2017 03:39:29 Confirmation # [id number] Dictation # [id number] markus LUIS
[2017-03-29 07:59] LABS: BASO % 0.7 % (0.0-2.0); EOS # 0.3 K/uL (0.0-0.7); EOS % 5.2 % (0.0-4.0); HEMATOCRIT 34.1 % (35.0-51.0); LYMPH % 18.1 % (20.0-40.0); MEAN CORPUSCULAR HEMOGLOBIN 31.4 pg (27.0-31.0); MEAN CORPUSCULAR HGB CONC 33.4 g/dL (33.0-37.0); MEAN PLATELET VOLUME 8.2 fL (7.2-11.7); MONO # 0.7 K/uL (0.0-0.8); MONO % 11.7 % (0.0-10.0); RED CELL DISTRIBUTION WIDTH 16.7 % (11.5-14.5); WHITE BLOOD COUNT 5.7 K/uL (4.8-10.8)
[2017-03-29 08:09] LABS: CHLORIDE 101 mmol/L (98-107); SODIUM 139 mmol/L (132-148)
[2017-03-29 08:10] LABS: POTASSIUM 3.1 mmol/L (3.6-5.2)
[2017-03-29 08:11] LABS: GFR AFRICAN-AMERICAN > 60
[2017-03-29 08:12] LABS: ALKALINE PHOSPHATASE 89 U/L (38-126); ALT/SGPT 23 U/L (21-72); AST/SGOT 22 U/L (17-59); BILIRUBIN,TOTAL 0.7 mg/dL (0.2-1.3); BLOOD UREA NITROGEN 11 mg/dL (9-20); CALCIUM 7.5 mg/dl (8.6-10.4); CARBON DIOXIDE 28 mmol/L (22-30); GLUCOSE,RANDOM 96 mg/dL (75-110); PHOSPHOROUS 3.1 mg/dL (2.5-4.5); TOTAL PROTEIN 6.5 g/dL (6.3-8.3)
[2017-03-29 08:13] LABS: MAGNESIUM 1.8 mg/dL (1.6-2.3)
[2017-03-29] MEDS: Multiple Vitamins Tab PO SCH (09:02)
[2017-03-29] MEDS: Potassium Chloride 20 mEq ER Tab PO SCH (11:39)
--- NOTE | 2017-03-29 14:44 | PN ---
DATE: 03/29/2017 SUBJECTIVE: The patient denies any palpitation, dizziness or chest pain. PHYSICAL EXAMINATION: VITAL SIGNS: Blood pressure 170/73, heart rate 65, temperature 97.7, respirations 20. HEENT: Normocephalic. NECK: No JVD. CHEST: Clear. HEART: S1, S2 regular. EXTREMITIES: No edema. LABORATORIES: Hemoglobin and hematocrit 11.4 and 34.1. White count and platelet count are within no rmal limits. Today's potassium is 3.1. Urology note was consistent with prostatic CA and for hematu shayla and retention. ASSESSMENT: 1. Paroxysmal atrial fibrillation. 2. Metastatic prostate carcinoma. 3. Hypokalemia. RECOMMENDATIONS: Continue current Cardizem at 30 mg t.i.d., Crestor at 5 mg once a day, K-Dur 20 mEq orally was started today. I will start subcutaneous Lovenox 30 mg daily and followup BMP in a.m. Osmani Rubin MD cc: [id number] TT: 03/29/2017 14:44:09 Confirmation # [id number] Dictation # [id number] pearl
[2017-03-29] MEDS: Enoxaparin 30 mg Syringe SC SCH (14:45)
--- NOTE | 2017-03-29 21:21 | CP.PCM.PN ---
<Helio Anguiano - Last Filed: 03/29/17 23:39> Subjective - Date & Time of Evaluation Date of Evaluation: 03/29/17 Time of Evaluation: 07:30 - Subjective Subjective: 86 year old male (PMHx Metastatic Prostate CA, CAD, AAA, HTN, HLD, COPD) who presented to the ER 03/21/17 for Hematuria at which time a young catheter was placed and bladder was irrigated and patient sent home. He then returned the ER 03/22/17 due to continued Hematuria and was admitted for further treatment. His hematuria has resolved and pt. has no complaints today. He denies headache, chest pain, difficulty breathing, N/V/D, or any GI/ symptoms. Objective - Vital Signs/Intake and Output Vital Signs (last 24 hours): Temp Pulse Resp BP Pulse Ox 97.8 F 67 20 167/72 H 96 03/29/17 15:00 03/29/17 20:14 03/29/17 15:00 03/29/17 15:00 03/29/17 15:00 Intake and Output: 03/29/17 03/30/17 18:59 06:59 Intake Total 600 Balance 600 - Medications Medications: Current Medications Acetaminophen (Tylenol 325mg Tab) 650 mg PO Q6 PRN PRN Reason: Pain Cyclobenzaprine HCl (Flexeril) 5 mg PO HS PRN PRN Reason: Muscle spasm Last Admin: 03/24/17 21:34 Dose: 5 mg Diltiazem HCl (Cardizem) 30 mg PO TID [facility] Last Admin: 03/29/17 17:14 Dose: 30 mg Enoxaparin Sodium (Lovenox) 30 mg SC DAILY [facility] Last Admin: 03/29/17 14:45 Dose: Not Given Famotidine (Pepcid) 20 mg PO DAILY [facility] Last Admin: 03/29/17 09:02 Dose: 20 mg Finasteride (Proscar) 5 mg PO DAILY [facility] Last Admin: 03/29/17 09:02 Dose: 5 mg Guaifenesin (Robitussin) 100 mg PO Q4H PRN PRN Reason: Cough Last Admin: 03/24/17 21:33 Dose: 100 mg Ipratropium [place] (Atrovent) 0.5 mg IH RQ6 PRN PRN Reason: Shortness of Breath Multivitamins (Hexavitamin) 1 tab PO DAILY [facility] Last Admin: 03/29/17 09:02 Dose: 1 tab Ondansetron HCl (Zofran Inj) 4 mg IVP Q6H PRN PRN Reason: Nausea/Vomiting Potassium Chloride (K-Dur 20 Meq Er Tab) 40 meq PO DAILY [facility] Last Admin: 03/29/17 11:39 Dose: 40 meq Rosuvastatin Calcium (Crestor) 5 mg PO HS [facility] Last Admin: 03/29/17 20:59 Dose: 5 mg Tamsulosin HCl (Flomax) 0.4 mg PO DAILY [facility] Last Admin: 03/29/17 09:02 Dose: 0.4 mg Tramadol HCl (Ultram) 50 mg PO Q6H PRN PRN Reason: Pain, moderate (4-7) Last Admin: 03/23/17 17:30 Dose: 50 mg - Labs Labs: 03/29/17 07:36 03/29/17 07:36 PT 13.3 SECONDS (9.7-12.2) H 03/23/17 12:33 INR 1.2 03/23/17 12:33 APTT 32 SECONDS (21-34) 03/23/17 12:33 - Constitutional Appears: Non-toxic, No Acute Distress - Head Exam Head Exam: ATRAUMATIC, NORMAL INSPECTION, NORMOCEPHALIC - Eye Exam Eye Exam: EOMI, Periorbital tenderness - ENT Exam ENT Exam: Mucous Membranes Moist, Normal Exam - Neck Exam Neck Exam: Full ROM. absent: Lymphadenopathy, Thyromegaly - Respiratory Exam Respiratory Exam: Clear to Ausculation Bilateral, NORMAL BREATHING PATTERN - Cardiovascular Exam Cardiovascular Exam: REGULAR RHYTHM, +S1, +S2. absent: Murmur - GI/Abdominal Exam GI & Abdominal Exam: Soft, Normal Bowel Sounds. absent: Tenderness - Extremities Exam Extremities Exam: Full ROM, Normal Capillary Refill, Normal Inspection. absent : Joint Swelling, Pedal Edema - Back Exam Back Exam: NORMAL INSPECTION - Neurological Exam Neurological Exam: Alert, Awake, CN II-XII Intact, Normal Gait, Oriented x3 - Psychiatric Exam Psychiatric exam: Normal Affect, Normal Mood - Skin Skin Exam: Dry, Intact, Normal Color, Warm Assessment and Plan - Assessment and Plan (Free Text) Plan: 1). Hematuria Hgb/Hct is stable Proscar 5 mg PO 1x/day Flomax 0.4 mg PO 1x/day Urology Dr. Hafsa Gar 2). New onset A-fibrillation Diltiazem 30 mg PO TID Rate controlled NO anticoagulation for now considering the recent history of Hematuria Discuss with Cardiology Dr. Rubin as to if and when to start anticoagulation 3). Hx Metastatic Prostate CA (Sternum, Ribs, Pelvis) S/P TURP 02/25/17 F/U Palliative Care Consult 4). Hx CAD with Stent Stress Test 03/11/17 with EF 60% 5). Hx of Thoracic Aortic Aneurysm CT Chest 03/26/17 showed distal end of aortic graft scott not abut the [place] aorta and this likely represents Type [address] Leak. [address] Salinas was consulted and no intervention at this time and patient will need to follow up with Vascular Surgeon who performed the procedure, as an outpatient (patient could not provide information as to who this Vascular Surgeon was) 6). Hx HTN Diltiazem 30 mg PO TID stopped started Cardizem 120 CD due to high sys bp in the 160-180's 7). Hx HLD Crestor 5 mg PO QHS 8). Hx COPD Ipratropium 0.02 % via Nebulizer Q6H PRN SOB/Wheezing Do NOT use beta agonist considering the new onset A-fib 9). Anemia Secondary Likely To Hematuria Monitor HgB/Hct 9). Prophylaxis Pepcid 20 mg PO 1x/day for GI Prophylaxis B/L SCDs for DVT Prophylaxis (NO anticoagulation considering the recent Hematuria) Tramadol 50 mg PO Q6H PRN Moderate Pain Tylenol 650 mg PO Q6H PRN Mild Pain Cyclobenzaprin 5 mg PO QHS PRN Muscle Spasm Gauifenensin 100 mg PO Q4H PRN Cough MVI Zofran 4 mg IV Q6H PRN N/V <Eric Nichole - Last Filed: 05/05/17 14:39> Objective - Vital Signs/Intake and Output Vital Signs (last 24 hours): Temp Pulse Resp BP Pulse Ox 97.4 F L 58 L 20 151/67 H 97 03/30/17 07:17 03/30/17 07:17 03/30/17 07:17 03/30/17 07:17 03/30/17 07:17 - Labs Labs: 03/30/17 06:27 03/30/17 06:27 PT 13.3 SECONDS (9.7-12.2) H 03/23/17 12:33 INR 1.2 03/23/17 12:33 APTT 32 SECONDS (21-34) 03/23/17 12:33 Attending/Attestation - Attestation I have personally seen and examined this patient.: Yes I have fully participated in the care of the patient.: Yes I have reviewed all pertinent clinical information, including history, physical exam and plan: Yes Notes (Text): Patient Seen and examined with the resident. Agree with the resident's evaluation, assessment and plan. Hematuria resolved Patient unable to be anticoagulated due to hematuria and type I leak of thoracic aortic aneurysm. Monitoring his hypertension Metastatic prostate cancer Onset A. fib rate now controlled.
[2017-03-30 06:59] LABS: BASO % 0.7 % (0.0-2.0); EOS # 0.3 K/uL (0.0-0.7); EOS % 4.5 % (0.0-4.0); LYMPH % 16.2 % (20.0-40.0); MEAN CELL VOLUME 94.4 fL (80.0-94.0); MEAN CORPUSCULAR HEMOGLOBIN 31.4 pg (27.0-31.0); MEAN CORPUSCULAR HGB CONC 33.3 g/dL (33.0-37.0); MEAN PLATELET VOLUME 8.2 fL (7.2-11.7); MONO # 0.8 K/uL (0.0-0.8); MONO % 12.2 % (0.0-10.0); NRBC % 0.1 % (0.0-2.0); RED CELL DISTRIBUTION WIDTH 16.4 % (11.5-14.5); WHITE BLOOD COUNT 6.3 K/uL (4.8-10.8)
[2017-03-30 07:00] LABS: CHLORIDE 100 mmol/L (98-107); POTASSIUM 3.6 mmol/L (3.6-5.2); SODIUM 140 mmol/L (132-148)
[2017-03-30 07:02] LABS: BILIRUBIN,TOTAL 0.7 mg/dL (0.2-1.3); GFR AFRICAN-AMERICAN > 60
[2017-03-30 07:03] LABS: ALKALINE PHOSPHATASE 88 U/L (38-126); ALT/SGPT 24 U/L (21-72); AST/SGOT 27 U/L (17-59); BLOOD UREA NITROGEN 12 mg/dL (9-20); CALCIUM 7.7 mg/dl (8.6-10.4); CARBON DIOXIDE 29 mmol/L (22-30); GLUCOSE,RANDOM 98 mg/dL (75-110); TOTAL PROTEIN 6.6 g/dL (6.3-8.3)
[2017-03-30 07:04] LABS: MAGNESIUM 1.9 mg/dL (1.6-2.3)
[2017-03-30 08:17] VITALS: BP 151/67; PULSE 58; TEMP 97.4; O2SAT 97
[2017-03-30] MEDS: Potassium Chloride 20 mEq ER Tab PO SCH (08:59)
[2017-03-30] MEDS: Enoxaparin 30 mg Syringe SC SCH ×2 (08:59→09:05)
[2017-03-30] MEDS ORDERED: diltiaZEM 120 mg/24 Hours CD Cap PO SCH (10:00)
--- NOTE | 2017-03-30 12:43 | PN ---
DATE: 03/30/2017 SUBJECTIVE: The patient denies any palpitation, dizziness or chest pain. He is currently in sinus r hythm on the monitor. PHYSICAL EXAMINATION: VITAL SIGNS: Blood pressure 151/67, heart rate 58, temperature 97.4, respirations 20. HEENT: Pale conjunctivae. CHEST: Clear. HEART: S1, S2 regular. EXTREMITIES: No edema. LABORATORIES: Hemoglobin and hematocrit 11 and 33.0, white count and platelet count are within tabitha l limits. Today's SMA-7 is within normal limits. Calcium is normal at 7.7. ASSESSMENT: 1. Metastatic prostatic cancer. 2. Status post paroxysmal atrial fibrillation. 3. Status post hematuria. RECOMMENDATIONS: Continue Cardizem-CD at 120 mg once a day, Crestor at 5 mg once a day, K-Dur 40 mEq daily. Lovenox is being withheld today. Discontinue telemetry. Decision for anticoagulation will be obtained after urology clearance. Osmani Rubin MD cc: [id number] TT: 03/30/2017 12:42:30 Confirmation # [id number] Dictation # [id number] [place]
--- NOTE | 2017-03-30 19:33 | CP.PCM.DIS ---
<AnguianoHelio ewing - Last Filed: 04/01/17 00:41> Provider - Provider Date of Admission: 03/24/17 14:07 Attending physician: Jeanne Buenrostro MD Time Spent in preparation of Discharge (in minutes): 35 Hospital Course - Lab Results Lab Results: Micro Results 03/26/17 15:15 Nose MRSA Culture - Final MRSA NOT DETECTED 03/25/17 Unknown Naris MRSA Culture (Admit) - Final MRSA NOT DETECTED 03/26/17 07:29 Urine,Young Urine Culture - Final No Growth (<1,000 CFU/ML) Most Recent Lab Values WBC 6.3 K/uL (4.8-10.8) 03/30/17 06:27 RBC 3.49 Mil/uL (4.40-5.90) L 03/30/17 06:27 Hgb 11.0 g/dL (12.0-18.0) L 03/30/17 06:27 Hct 33.0 % (35.0-51.0) L 03/30/17 06:27 MCV 94.4 fL (80.0-94.0) H 03/30/17 06:27 MCH 31.4 pg (27.0-31.0) H 03/30/17 06:27 MCHC 33.3 g/dL (33.0-37.0) 03/30/17 06:27 RDW 16.4 % (11.5-14.5) H 03/30/17 06:27 Plt Count 261 K/uL (130-400) 03/30/17 06:27 MPV 8.2 fL (7.2-11.7) 03/30/17 06:27 Neut % (Auto) 66.4 % (50.0-75.0) 03/30/17 06:27 Lymph % (Auto) 16.2 % (20.0-40.0) L 03/30/17 06:27 [place] % (Auto) 12.2 % (0.0-10.0) H 03/30/17 06:27 Eos % (Auto) 4.5 % (0.0-4.0) H 03/30/17 06:27 Baso % (Auto) 0.7 % (0.0-2.0) 03/30/17 06:27 Neut # 4.2 K/uL (1.8-7.0) 03/30/17 06:27 Lymph # 1.0 K/uL (1.0-4.3) 03/30/17 06:27 [place] # 0.8 K/uL (0.0-0.8) 03/30/17 06:27 Eos # 0.3 K/uL (0.0-0.7) 03/30/17 06:27 Baso # 0.0 K/uL (0.0-0.2) 03/30/17 06:27 Neutrophils % (Manual) 75 % (50-75) 03/24/17 07:44 Lymphocytes % (Manual) 10 % (20-40) L 03/24/17 07:44 Monocytes % (Manual) 15 % (0-10) H 03/24/17 07:44 Basophils % (Manual) 1 % (0-2) 03/22/17 15:52 Platelet Estimate Normal (NORMAL) 03/24/17 07:44 Poikilocytosis (manual Slight 03/24/17 07:44 Anisocytosis (manual) Slight 03/24/17 07:44 Microcytosis (manual) Slight 03/24/17 07:44 Macrocytosis (manual) Slight 03/24/17 07:44 Spherocytes Slight 03/24/17 07:44 Ovalocytes Slight 03/24/17 07:44 PT 13.3 SECONDS (9.7-12.2) H 03/23/17 12:33 INR 1.2 03/23/17 12:33 APTT 32 SECONDS (21-34) 03/23/17 12:33 Sodium 140 mmol/L (132-148) 03/30/17 06:27 Potassium 3.6 mmol/L (3.6-5.2) 03/30/17 06:27 Chloride 100 mmol/L (98-107) 03/30/17 06:27 Carbon Dioxide 29 mmol/L (22-30) 03/30/17 06:27 Anion Gap 14 (10-20) 03/30/17 06:27 BUN 12 mg/dL (9-20) 03/30/17 06:27 Creatinine 1.1 MG/DL (0.8-1.5) 03/30/17 06:27 Est GFR ( Amer) > 60 03/30/17 06:27 Est GFR (Non-Af Amer) > 60 03/30/17 06:27 Random Glucose 98 mg/dL (75-110) 03/30/17 06:27 Calcium 7.7 mg/dl (8.6-10.4) L 03/30/17 06:27 Phosphorus 3.0 mg/dL (2.5-4.5) 03/30/17 06:27 Magnesium 1.9 mg/dL (1.6-2.3) 03/30/17 06:27 Total Bilirubin 0.7 mg/dL (0.2-1.3) 03/30/17 06:27 AST 27 U/L (17-59) 03/30/17 06:27 ALT 24 U/L (21-72) 03/30/17 06:27 Alkaline Phosphatase 88 U/L (38-126) 03/30/17 06:27 Total Protein 6.6 g/dL (6.3-8.3) 03/30/17 06:27 Albumin 3.4 g/dL (3.5-5.0) L 03/30/17 06:27 Globulin 3.3 gm/dL (2.2-3.9) 03/30/17 06:27 Albumin/Globulin Ratio 1.0 (1.0-2.1) 03/30/17 06:27 TSH 3rd Generation 1.72 mIU/L (0.46-4.68) 03/26/17 16:43 Urine Color Red (YELLOW) 03/22/17 15:52 Urine Clarity Hazy (Clear) 03/22/17 15:52 Urine pH 6.0 (5.0-8.0) 03/22/17 15:52 Ur Specific [place] 1.014 (1.003-1.030) 03/22/17 15:52 Urine Protein 2+ mg/dL (NEGATIVE) H 03/22/17 15:52 Urine Glucose (UA) 1+ mg/dL (Normal) H 03/22/17 15:52 Urine Ketones Negative mg/dL (NEGATIVE) 03/22/17 15:52 Urine Blood 3+ (NEGATIVE) H 03/22/17 15:52 Urine Nitrate Negative (NEGATIVE) 03/22/17 15:52 Urine Bilirubin Negative (NEGATIVE) 03/22/17 15:52 Urine Urobilinogen Normal mg/dL (0.2-1.0) 03/22/17 15:52 Ur Leukocyte Esterase 3+ Carla/uL (Negative) H 03/22/17 15:52 Urine WBC (Auto) 345 /hpf (0-5) H 03/22/17 15:52 Urine RBC (Auto) 4001 /hpf (0-3) H 03/22/17 15:52 Urine WBC Clumps (Auto) Many /hpf (NONE) H 03/22/17 15:52 Urine Bacteria Many (<OCC) H 03/22/17 15:52 Blood Type A POSITIVE 03/25/17 13:06 Blood Type Confirm A POSITIVE 03/25/17 13:06 Antibody Screen Negative 03/25/17 13:06 - Hospital Course Hospital Course: 86 year old male (PMHx Metastatic Prostate CA, CAD, AAA, HTN, HLD, COPD) who presented to the ER 03/21/17 for Hematuria at which time a young catheter was placed and bladder was irrigated and patient sent home. He then returned the ER 03/22/17 due to continued Hematuria and was admitted for further treatment. Patient was evaluated by Urology and was admitted. CT Abd/Pelvis was ordered to better evaluate his hematuria. 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 This was also seen on CT Chest. Vascular surgery was consulted and advised no surgery at this time with follow up as an outpatient. Patient was transferred to the ICU for new onset rapid A-fib. Cardiology was consulted and started the patient on Cardizem 30mg PO TID. Hemo/Onc was consulted for metastatic prostate cancer. Palliative care consulted as well. This is a brief account of his stay. For more information please see his chart. - Date & Time of H&P Date of H&P: 03/30/17 Time of H&P: 10:45 Discharge Exam - Head Exam Head Exam: ATRAUMATIC, NORMAL INSPECTION, NORMOCEPHALIC - Eye Exam Eye Exam: EOMI - ENT Exam ENT Exam: Mucous Membranes Moist - Neck Exam Neck exam: Full Rom - Respiratory Exam Respiratory Exam: Clear to PA & Lateral, NORMAL BREATHING PATTERN, UNREMARKABLE - Cardiovascular Exam Cardiovascular Exam: REGULAR RHYTHM, RRR, +S1, +S2. absent: JVD, Systolic Murmur - GI/Abdominal Exam GI & Abdominal Exam: Normal Bowel Sounds, Soft, Unremarkable. absent: Tenderness - Extremities Exam Extremities exam: full ROM, pedal pulses present - Back Exam Back exam: FULL ROM - Neurological Exam Neurological exam: Alert, CN II-XII Intact, Normal Gait, Oriented x3, Reflexes Normal - Psychiatric Exam Psychiatric exam: Normal Affect, Normal Mood - Skin Skin Exam: Dry, Intact, Normal Color, Warm Discharge Plan - Discharge Medications Prescriptions: Crestor 5 mg PO HS #30 diltiaZEM CD [Cardizem CD] 120 mg PO DAILY #30 cap Finasteride 5 mg PO DAILY #30 Ipratropium 0.02% [Atrovent] 0.5 mg IH RQ6 PRN #1 PRN Reason: Shortness Of Breath Norvasc 5 mg PO DAILY #30 Pepcid 20 mg PO DAILY #30 Tamsulosin [Flomax] 0.4 mg PO DAILY #30 cap - Follow Up Plan Condition: STABLE Disposition: HOME/ ROUTINE Instructions: Acute Hematuria (DC), Dizziness (GEN) Additional Instructions: Patient is medically stable for discharge Please follow up with your primary care within 1 week. Please follow up with Dr. Wagoner, your Oncologist within 1 week. Please follow up with Dr. Gill, your Urologist within 1 week. Please follow up with Dr. Salinas, your surgeon within 1 week. Thank you for allowing us to take part in your care. Referrals: Osmani Rubin MD [Staff Provider] - Jacques Salinas Jr., MD [Staff Provider] - Max Gill MD [Staff Provider] - Toya Wagoner MD [Staff Provider] - <Eric Nichole - Last Filed: 05/10/17 13:00> Provider - Provider Date of Admission: 03/24/17 14:07 Attending physician: Jeanne Buenrostro MD Hospital Course - Lab Results Lab Results: Micro Results 03/26/17 15:15 Nose MRSA Culture - Final MRSA NOT DETECTED 03/25/17 Unknown Naris MRSA Culture (Admit) - Final MRSA NOT DETECTED 03/26/17 07:29 Urine,Young Urine Culture - Final No Growth (<1,000 CFU/ML) Most Recent Lab Values WBC 6.3 K/uL (4.8-10.8) 03/30/17 06:27 RBC 3.49 Mil/uL (4.40-5.90) L 03/30/17 06:27 Hgb 11.0 g/dL (12.0-18.0) L 03/30/17 06:27 Hct 33.0 % (35.0-51.0) L 03/30/17 06:27 MCV 94.4 fL (80.0-94.0) H 03/30/17 06:27 MCH 31.4 pg (27.0-31.0) H 03/30/17 06:27 MCHC 33.3 g/dL (33.0-37.0) 03/30/17 06:27 RDW 16.4 % (11.5-14.5) H 03/30/17 06:27 Plt Count 261 K/uL (130-400) 03/30/17 06:27 MPV 8.2 fL (7.2-11.7) 03/30/17 06:27 Neut % (Auto) 66.4 % (50.0-75.0) 03/30/17 06:27 Lymph % (Auto) 16.2 % (20.0-40.0) L 03/30/17 06:27 [place] % (Auto) 12.2 % (0.0-10.0) H 03/30/17 06:27 Eos % (Auto) 4.5 % (0.0-4.0) H 03/30/17 06:27 Baso % (Auto) 0.7 % (0.0-2.0) 03/30/17 06:27 Neut # 4.2 K/uL (1.8-7.0) 03/30/17 06:27 Lymph # 1.0 K/uL (1.0-4.3) 03/30/17 06:27 [place] # 0.8 K/uL (0.0-0.8) 03/30/17 06:27 Eos # 0.3 K/uL (0.0-0.7) 03/30/17 06:27 Baso # 0.0 K/uL (0.0-0.2) 03/30/17 06:27 Neutrophils % (Manual) 75 % (50-75) 03/24/17 07:44 Lymphocytes % (Manual) 10 % (20-40) L 03/24/17 07:44 Monocytes % (Manual) 15 % (0-10) H 03/24/17 07:44 Basophils % (Manual) 1 % (0-2) 03/22/17 15:52 Platelet Estimate Normal (NORMAL) 03/24/17 07:44 Poikilocytosis (manual Slight 03/24/17 07:44 Anisocytosis (manual) Slight 03/24/17 07:44 Microcytosis (manual) Slight 03/24/17 07:44 Macrocytosis (manual) Slight 03/24/17 07:44 Spherocytes Slight 03/24/17 07:44 Ovalocytes Slight 03/24/17 07:44 PT 13.3 SECONDS (9.7-12.2) H 03/23/17 12:33 INR 1.2 03/23/17 12:33 APTT 32 SECONDS (21-34) 03/23/17 12:33 Sodium 140 mmol/L (132-148) 03/30/17 06:27 Potassium 3.6 mmol/L (3.6-5.2) 03/30/17 06:27 Chloride 100 mmol/L (98-107) 03/30/17 06:27 Carbon Dioxide 29 mmol/L (22-30) 03/30/17 06:27 Anion Gap 14 (10-20) 03/30/17 06:27 BUN 12 mg/dL (9-20) 03/30/17 06:27 Creatinine 1.1 MG/DL (0.8-1.5) 03/30/17 06:27 Est GFR ( Amer) > 60 03/30/17 06:27 Est GFR (Non-Af Amer) > 60 03/30/17 06:27 Random Glucose 98 mg/dL (75-110) 03/30/17 06:27 Calcium 7.7 mg/dl (8.6-10.4) L 03/30/17 06:27 Phosphorus 3.0 mg/dL (2.5-4.5) 03/30/17 06:27 Magnesium 1.9 mg/dL (1.6-2.3) 03/30/17 06:27 Total Bilirubin 0.7 mg/dL (0.2-1.3) 03/30/17 06:27 AST 27 U/L (17-59) 03/30/17 06:27 ALT 24 U/L (21-72) 03/30/17 06:27 Alkaline Phosphatase 88 U/L (38-126) 03/30/17 06:27 Total Protein 6.6 g/dL (6.3-8.3) 03/30/17 06:27 Albumin 3.4 g/dL (3.5-5.0) L 03/30/17 06:27 Globulin 3.3 gm/dL (2.2-3.9) 03/30/17 06:27 Albumin/Globulin Ratio 1.0 (1.0-2.1) 03/30/17 06:27 TSH 3rd Generation 1.72 mIU/L (0.46-4.68) 03/26/17 16:43 Urine Color Red (YELLOW) 03/22/17 15:52 Urine Clarity Hazy (Clear) 03/22/17 15:52 Urine pH 6.0 (5.0-8.0) 03/22/17 15:52 Ur Specific [place] 1.014 (1.003-1.030) 03/22/17 15:52 Urine Protein 2+ mg/dL (NEGATIVE) H 03/22/17 15:52 Urine Glucose (UA) 1+ mg/dL (Normal) H 03/22/17 15:52 Urine Ketones Negative mg/dL (NEGATIVE) 03/22/17 15:52 Urine Blood 3+ (NEGATIVE) H 03/22/17 15:52 Urine Nitrate Negative (NEGATIVE) 03/22/17 15:52 Urine Bilirubin Negative (NEGATIVE) 03/22/17 15:52 Urine Urobilinogen Normal mg/dL (0.2-1.0) 03/22/17 15:52 Ur Leukocyte Esterase 3+ Carla/uL (Negative) H 03/22/17 15:52 Urine WBC (Auto) 345 /hpf (0-5) H 03/22/17 15:52 Urine RBC (Auto) 4001 /hpf (0-3) H 03/22/17 15:52 Urine WBC Clumps (Auto) Many /hpf (NONE) H 03/22/17 15:52 Urine Bacteria Many (<OCC) H 03/22/17 15:52 Blood Type A POSITIVE 03/25/17 13:06 Blood Type Confirm A POSITIVE 03/25/17 13:06 Antibody Screen Negative 03/25/17 13:06 Attending/Attestation - Attestation I have personally seen and examined this patient.: Yes I have fully participated in the care of the patient.: Yes I have reviewed all pertinent clinical information, including history, physical exam and plan: Yes Notes (Text): Patient Seen and examined with the resident. Agree with the resident's evaluation, assessment and plan. hematuria due to metastatic prostate cancer
== END 2017-03-30 13:13 | disposition home or self-care (01) | DRG 723 ==
LOC: C.ER 14:22 → C.9E 16:51 → C.3T 21:04 → OBSVTOIN 03-24 14:07 → C.9I 03-25 12:32 → C.6T 03-26 14:31
PROVIDERS: ADMIT Internal Medicine; ATTEND Internal Medicine
DX: C61 Malignant neoplasm of prostate (principal); R31.0 Gross hematuria; C79.51 Secondary malignant neoplasm of bone; J44.9 Chronic obstructive pulmonary disease, unspecified; T82.330A Leakage of aortic (bifurcation) graft (replacement), initial encounter; I10 Essential (primary) hypertension; I25.10 Atherosclerotic heart disease of native coronary artery without angina pectoris; E78.5 Hyperlipidemia, unspecified; F17.210 Nicotine dependence, cigarettes, uncomplicated; Z95.5 Presence of coronary angioplasty implant and graft

== ENCOUNTER 2017-08-13 15:18 | Inpatient (IN) | payer MEDICARE, OTHER ==
[2017-08-13 15:19] VITALS: PULSE 126
[2017-08-13] MEDS ORDERED: Atropine Sulfate 1 mg/ml Vial (1 ml) IVP ONE (16:38)
[2017-08-13 17:02] LABS: BASO % 0.5 % (0.0-2.0); EOS # 0.3 K/uL (0.0-0.7); EOS % 5.1 % (0.0-4.0); HEMATOCRIT 35.8 % (35.0-51.0); LYMPH # 1.2 K/uL (1.0-4.3); LYMPH % 20.4 % (20.0-40.0); MEAN CELL VOLUME 96.3 fL (80.0-94.0); MEAN CORPUSCULAR HEMOGLOBIN 32.5 pg (27.0-31.0); MEAN CORPUSCULAR HGB CONC 33.8 g/dL (33.0-37.0); MEAN PLATELET VOLUME 9.5 fL (7.2-11.7); MONO # 0.8 K/uL (0.0-0.8); MONO % 12.5 % (0.0-10.0); RED CELL DISTRIBUTION WIDTH 16.4 % (11.5-14.5); WHITE BLOOD COUNT 6.1 K/uL (4.8-10.8)
[2017-08-13 17:13] LABS: INR 1.1
[2017-08-13 17:51] LABS: FREE T4 0.91 ng/dL (0.78-2.19)
[2017-08-13 17:54] LABS: CHLORIDE 106 mmol/L (98-107); SODIUM 141 mmol/L (132-148)
[2017-08-13 17:55] LABS: POTASSIUM 3.3 mmol/L (3.6-5.2)
[2017-08-13 17:56] LABS: GFR AFRICAN-AMERICAN > 60
[2017-08-13 17:57] LABS: ALB/GLOB RATIO 1.2 (1.0-2.1); ALKALINE PHOSPHATASE 83 U/L (38-126); ALT/SGPT 19 U/L (21-72); AST/SGOT 23 U/L (17-59); BILIRUBIN,TOTAL 0.6 mg/dL (0.2-1.3); BLOOD UREA NITROGEN 19 mg/dL (9-20); CALCIUM 8.4 mg/dl (8.6-10.4); CARBON DIOXIDE 25 mmol/L (22-30); GLUCOSE,RANDOM 67 mg/dL (75-110); TOTAL PROTEIN 6.9 g/dL (6.3-8.3)
[2017-08-13 17:58] LABS: MAGNESIUM 1.9 mg/dL (1.6-2.3)
[2017-08-13 18:04] LABS: THYROID STIMULATING HORMONE 1.94 mIU/L (0.46-4.68)
[2017-08-13] MEDS ORDERED: Potassium Chloride 20 mEq/15 ml LIQ UD PO STA (18:17)
[2017-08-13] MEDS ORDERED: Potassium Chloride 20 mEq/15 ml LIQ UD ONE (18:28)
--- NOTE | 2017-08-13 21:03 | C.PDOC ---
History Of Present Illness Pt was sent to the ED by his PMD due to bradycardia. Time Seen by Provider: 08/13/17 16:06 Chief Complaint (Nursing): Dizziness/Lightheaded History Per: Patient Onset/Duration Of Symptoms: Days (about 2 months) Current Symptoms Are (Timing): Still Present Associated Symptoms Preceding Syncopal Episode: Lightheadedness Possible Causative Factor(s): Lightheaded W/Standing Fall Associated With With Symptoms: No Severity: Moderate Additional History Per: Prior Records - Symptoms Of CVA Recent Head Trauma: No Past Medical History Reviewed: Historical Data, Nursing Documentation, Vital Signs Vital Signs: Last Vital Signs Temp 98.2 F 08/13/17 15:49 Pulse 41 L 08/13/17 20:19 Resp 18 08/13/17 20:19 BP 145/50 L 08/13/17 20:19 Pulse Ox 95 08/13/17 20:19 - Medical History PMH: HTN Surgical History: Cholecystectomy, Coronary Stent - [facility] Procedures RESECTION OF PROSTATE, ENDO (02/25/17) Family History: States: Unknown Family Hx - Social History Hx Tobacco Use: Yes Hx Alcohol Use: No Hx Substance Use: No - Immunization History Hx Tetanus Toxoid Vaccination: No Hx Influenza Vaccination: Yes Hx Pneumococcal Vaccination: Yes Review Of Systems Except As Marked, All Systems Reviewed And Found Negative. Constitutional: Negative for: Fever, Weakness Cardiovascular: Positive for: Chest Pain, Light Headedness Respiratory: Negative for: Hemoptysis Gastrointestinal: Negative for: Vomiting, Abdominal Pain Musculoskeletal: Negative for: Neck Pain Neurological: Negative for: Weakness, Numbness Physical Exam - Physical Exam Appears: No Acute Distress, Chronically Ill Skin: Normal Color, Warm, Dry, No Rash Head: Atraumatic, Normacephalic Eye(s): bilateral: PERRL, EOMI Neck: Normal ROM, Supple Cardiovascular: Rhythm Regular (bradycardia) Respiratory: Normal Breath Sounds, No Accessory Muscle Use Gastrointestinal/Abdominal: Soft, No Tenderness Back: No CVA Tenderness Extremity: Normal ROM Neurological/Psych: Oriented x3, Normal Motor, Normal Sensation ED Course And Treatment - Laboratory Results Result Diagrams: 08/13/17 16:50 08/13/17 16:50 Lab Interpretation: No Acute Changes ECG: Interpreted By Me, Viewed By Me ECG Rhythm: Sinus Bradycardia, Nonspecific Changes ECG Interpretation: Abnormal Rate From EC O2 Sat by Pulse Oximetry: 95 Pulse Ox Interpretation: Normal - Radiology CXR: Interpreted by Me, Viewed By Me CXR Interpretation: Yes: No Acute Disease Progress - Interventions Interventions:: Observation - Medications Administered Intravenous: Other (Atropine) - Data Reviewed Data Reviewed: Lab, Diagnostic imaging, EKG, Old records - Patient Status Patient status: Partially improved - Critical Care Citical Care: Excluding Proc Time Critical Care Time: 45 minutes - Continuity of Care Discussed patient case with:: Patient, Family-HIPPA compliant, ED Nurse, PMD - Patient Plan Patient Plan: Admission, Telemetry Disposition Discussed With DrRoby: Jeanne Buenrostro Comment: He accepted pt on his service and gave admitting orders to the nurse. Doctor Will See Patient In The: Hospital Counseled Patient/Family Regarding: Studies Performed, Diagnosis - Disposition Disposition: HOSPITALIZED Disposition Time: 21:00 Condition: GUARDED - Clinical Impression Clinical Impression: Symptomatic bradycardia
--- NOTE | 2017-08-14 06:45 | CON ---
DATE: CARDIOLOGY CONSULT REASON FOR CONSULTATION: Symptomatic bradycardia. HISTORY OF PRESENT ILLNESS: The patient is an 87-year-old male, who has a history of prostatic carcinoma underwent prostatectomy in the past presented because of lightheadedness and was referred for admission by his primary physician because of bradycardia. The patient denies any syncope or recent fall. The patient was evaluated by me during one of his admissions in February of this year because of new onset atrial fibrillation. SOCIAL HISTORY: The patient is smoker. He is occasional drinker. MEDICATIONS: Home medications includes Norvasc 5 mg once a day, aspirin 81 mg once a day, Coreg 12.5 mg twice a day, ferrous sulfate 1 tablet once a day, and simvastatin 40 mg once a day. REVIEW OF SYSTEMS: No nausea or vomiting. No fever or chills. No recent hematuria. PHYSICAL EXAMINATION: GENERAL: The patient is an elderly male who does not appear to be in acute distress. VITAL SIGNS: Blood pressure 150/52, heart rate 44, respirations 18, and temperature 98.2. HEENT: Normocephalic. NECK: No JVD. CHEST: Clear. HEART: S1 and S2, regular. EXTREMITIES: No edema. LABORATORY DATA: SMA-7, sodium 141, potassium 3.3, chloride 106, CO2 of 25, glucose 67, BUN 19 and creatinine 1.2. ProBNP is 2340. One set of troponin is negative. TSH within normal limits. INR is 1.1. PTT 35. Hemoglobin and hematocrit 12.1 and 35.8. White count and platelet count are within normal limits. EKG reveals sinus bradycardia at the rate of 43, premature atrial complexes were noted. ASSESSMENT: 1. Symptomatic sinus bradycardia, most likely iatrogenic. The patient is on Coreg therapy at home. 2. Hypertension. 3. History of prostatic carcinoma. RECOMMENDATIONS: Continue current recommendations. Continue current aspirin 81 mg once a day and Norvasc 5 mg once a day. Coreg will be discontinued. The patient received 0.5 mg of IV atropine in the emergency room, however, there was no significant improvement in the heart rate. If symptomatic bradycardiac continues despite discontinuation of beta paola, then further evaluation by wood cutter will be considered. In the meantime, telemetry monitoring was continued. Osmani Rubin MD [facility] # [id number]
--- NOTE | 2017-08-14 08:29 | RAD ---
PROCEDURE: CHEST RADIOGRAPH, 1 VIEW HISTORY: Bradycardia COMPARISON: Comparison is made to 03/26/2017 FINDINGS: LUNGS: No evidence of new infiltrate or consolidation in the lungs. Mild pulmonary vascular congestion is noted. PLEURA: No pneumothorax or pleural fluid seen. CARDIOVASCULAR: The cardiac silhouette is enlarged. OSSEOUS STRUCTURES: No significant abnormalities. VISUALIZED UPPER ABDOMEN: Normal. OTHER FINDINGS: None. IMPRESSION: No evidence of significant interval change since the previous exam. Cardiomegaly.
[2017-08-14] MEDS ORDERED: MV MIN10 PO SCH (10:00)
[2017-08-14] MEDS ORDERED: ALA PO SCH (10:00)
[2017-08-14] MEDS ORDERED: Home Med 1 UNIT (Simvastatin [Simvastatin] 40 MG) PO SCH (10:00)
[2017-08-14] MEDS ORDERED: D3 PO SCH (10:00)
[2017-08-14] MEDS ORDERED: LUT PO SCH (10:00)
[2017-08-14] MEDS ORDERED: Home Med 1 UNIT (Bicalutamide [Casodex] 50 MG) PO SCH (10:00)
[2017-08-14] MEDS ORDERED: FOLIC ACID PO SCH (10:00)
[2017-08-14] MEDS: Enoxaparin 40 mg Syringe SC SCH (15:27)
[2017-08-15 00:10] VITALS: RESP 20
--- NOTE | 2017-08-15 09:01 | PN ---
DATE: 08/14/17 SUBJECTIVE: The patient denies any dizziness. Sinus bradycardia has improved. No reported significant pauses on the monitor. PHYSICAL EXAMINATION VITAL SIGNS: Blood pressure 160/65, heart rate 63, temperature 98.5 and respirations 20. HEENT: Normocephalic. NECK: No JVD. CHEST: Clear. HEART: S1 and S2 regular. EXTREMITIES: No edema. ASSESSMENT: 1. Dizziness, no sinus bradycardia on admission. 2. Hypertension. 3. History of prostatic carcinoma. 4. History of paroxysmal atrial fibrillation during his last admission in 02/2017. RECOMMENDATIONS: Continue current aspirin 81 mg once a day, subcutaneous Lovenox at 40 mg once a day, Norvasc 5 mg once a day and discontinue outpatient Coreg therapy. Case was discussed with DYLON. Osmani Rubin MD
--- NOTE | 2017-08-15 09:28 | HP ---
HISTORY OF PRESENT ILLNESS: This is an 87-year-old male with history of multiple medical problems, presented to my office on the day of admission with symptoms of generalized weakness and fatigue. The patient was found to be bradycardic with heart rate of around 36. The patient was referred to the emergency room for evaluation, where he was again found bradycardic and needs further management. The patient has been on multiple medications including beta paola. Cardiology consultation was called and the patient was admitted to telemetry floor. The patient denied to have any chest pain or shortness of at the time of his examination. REVIEW OF SYSTEMS: Other review of system is negative. ALLERGIES: NO KNOWN ALLERGIES. HOME MEDICATIONS: Amlodipine 5 mg daily, Casodex 50 mg daily, ferrous sulfate 325 mg daily, simvastatin 40 mg daily, and Coreg 6.25 mg twice a day. SOCIAL HISTORY: Positive history of smoking. No ETOH or substance abuse. PAST MEDICAL HISTORY: Metastatic cancer prostate, hypertension, osteoarthritis, degenerative spine disease, and iron deficiency anemia. FAMILY HISTORY: Noncontributory. PHYSICAL EXAMINATION: GENERAL: The patient is in bed, comfortable, not in any cardiopulmonary distress at the time of his examination. VITAL SIGNS: Heart rate of 47, temperature 98.5, respiratory rate 20, and blood pressure 156/78. HEENT: Pupils are equal and reactive to light. Normal appearing mucosa of the conjunctivae, oropharyngeal and nasal membrane mucosa. NECK: Supple. No JVD. No carotid bruits. No lymph node. No thyromegaly. CHEST AND LUNGS: Bilateral symmetrical expansion. Good air exchange. No rales, no rhonchi. CARDIOVASCULAR: PMI not localized. S1 and S2. No additional sounds. ABDOMEN: Normoactive bowel sounds. No tenderness. No organomegaly. No masses. EXTREMITIES: No cyanosis. No clubbing. No edema. [employer]ISH[employer]: Alert, awake, and oriented x2. No neurological deficits could be appreciated. ASSESSMENT: 1. Systemic bradycardia, likely secondary to beta blockers. 2. Hypertension. 3. Ascending aortic aneurysm, status post stenting. 4. Osteoarthritis. 5. Degenerative spine disease. 6. Metastatic prostate cancer. PLAN: Hold the beta paola. Continue monitoring the patient on telemetry. Cardiology consult and follow recommendations. [facility] MD [facility] # [id number]
[2017-08-15] MEDS ORDERED: Home Med 1 UNIT (Bicalutamide [Casodex] 50 MG) PO SCH (10:00)
[2017-08-15] MEDS: Multivitamin With Minerals Tab PO SCH (10:22)
[2017-08-15] MEDS: Enoxaparin 40 mg Syringe SC SCH (10:22)
[2017-08-15 11:58] LABS: CARBON DIOXIDE 27 mmol/L (22-30)
[2017-08-15 12:10] LABS: CHLORIDE 104 mmol/L (98-107); POTASSIUM 3.3 mmol/L (3.6-5.2); SODIUM 140 mmol/L (132-148)
[2017-08-15 12:12] LABS: GFR AFRICAN-AMERICAN > 60
[2017-08-15 12:13] LABS: BLOOD UREA NITROGEN 18 mg/dL (9-20); CALCIUM 8.3 mg/dl (8.6-10.4); GLUCOSE,RANDOM 119 mg/dL (75-110)
--- NOTE | 2017-08-15 20:56 | PN ---
DATE: SUBJECTIVE: The patient is still experiencing sinus bradycardia. The slowest was 37 beats per minute with junctional escape. He is in bed in one-to-one watch. He denies any dizziness at this time. His 6 beats are of nonsustained ventricular tachycardia was also noted. PHYSICAL EXAMINATION VITAL SIGNS: Blood pressure 163/66, heart rate is 48, temperature is 98.3, respirations 20. HEENT: Normocephalic. CHEST: Clear. HEART: S1 and S2 regular. EXTREMITIES: No edema. There were twist. LABORATORY DATA: Today's potassium was 3.3, glucose is 119. The rest of the SMA-7 is within normal limit. ASSESSMENT: 1. Symptomatic bradycardia. 2. Non-sustained ventricular tachycardia. 3. Hypokalemia. RECOMMENDATIONS: I did order potassium chloride intravenous replacement of 20 mEq. Continue hydralazine 25 mg once a day, aspirin 81 mg once a day, Crestor 10 mg once a day, subcutaneous Lovenox 20 mg once a day, Norvasc 5 mg once a day. I requested electrophysiology consult from Dr. Snider whom I discussed the case with. I also discussed the case with her primary physician Dr. Buenrostro. Follow up BNP as well as magnesium level in a.m. Osmani Rubin MD
[2017-08-16 05:48] VITALS: TEMP 98.2
--- NOTE | 2017-08-16 07:46 | PN ---
DAILY PROGRESS NOTE DATE: 08/15/2017 SUBJECTIVE: The patient is seen today, 08/15/2017. He is feeling generalized weakness and fatigue. PHYSICAL EXAMINATION VITAL SIGNS: Blood pressure is 163/66, temperature 98.3, respiratory rate 20, and pulse is 38. HEENT: Pupils are equal and reactive to light. Normal-appearing mucosa of the conjunctiva, oropharynx and nasal membrane mucosa. NECK: Supple. No JVD. No carotid bruits. No lymph node. No thyromegaly. CHEST AND LUNGS: Bilateral symmetrical expansion. Good air exchange. No rales. No rhonchi. CARDIOVASCULAR SYSTEM: PMI not localized. S1 and S2. No additional sounds. ABDOMEN: Normoactive bowel sounds. No tenderness. No organomegaly. No masses. EXTREMITIES: No cyanosis. No clubbing. No edema. 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 No neurological deficit could be appreciated. ASSESSMENT: 1. Symptomatic bradycardia. 2. Hypertension. 3. Peripheral vascular disease. 4. Atherosclerotic cardiovascular disease. PLAN: Continue telemetry and start the patient on physical therapy and follow cardiology recommendations. Jeanne Buenrostro MD
[2017-08-16 08:27] VITALS: BP 143/69; PULSE 49; O2SAT 96
[2017-08-16 08:27] LABS: CHLORIDE 105 mmol/L (98-107); POTASSIUM 3.9 mmol/L (3.6-5.2); SODIUM 142 mmol/L (132-148)
[2017-08-16 08:30] LABS: BLOOD UREA NITROGEN 17 mg/dL (9-20); CALCIUM 8.6 mg/dl (8.6-10.4); CARBON DIOXIDE 25 mmol/L (22-30); GFR AFRICAN-AMERICAN > 60; GLUCOSE,RANDOM 84 mg/dL (75-110)
[2017-08-16 08:31] LABS: MAGNESIUM 1.9 mg/dL (1.6-2.3)
[2017-08-16] MEDS: Enoxaparin 40 mg Syringe SC SCH (10:04)
[2017-08-16] MEDS: Multivitamin With Minerals Tab PO SCH (10:05)
--- NOTE | 2017-08-16 12:11 | CP.PCM.PN ---
Subjective - Date & Time of Evaluation Date of Evaluation: 08/16/17 Time of Evaluation: 12:11 - Subjective Subjective: Alert, awake, no acute distress. HR remains 40's, no sob or chest pains. Objective - Vital Signs/Intake and Output Vital Signs (last 24 hours): Temp Pulse Resp BP Pulse Ox 98.2 F 49 L 20 143/69 96 08/16/17 08:26 08/16/17 08:26 08/16/17 08:26 08/16/17 08:26 08/16/17 08:26 - Medications Medications: Current Medications Amlodipine Besylate (Norvasc) 5 mg PO DAILY [facility] Last Admin: 08/16/17 10:05 Dose: 5 mg Aspirin (Aspirin Chewable) 81 mg PO DAILY [facility] Last Admin: 08/16/17 10:05 Dose: 81 mg Enoxaparin Sodium (Lovenox) 40 mg SC DAILY [facility] Last Admin: 08/16/17 10:04 Dose: 40 mg Ferrous Sulfate (Feosol) 325 mg PO DAILY [facility] Last Admin: 08/16/17 10:05 Dose: 325 mg Home Med (Bicalutamide [Casodex]) 50 mg PO DAILY [facility] Hydralazine HCl (Apresoline) 25 mg PO BID [facility] Last Admin: 08/16/17 10:06 Dose: 25 mg Multivitamins/Minerals (Therapeutic-M Tab) 1 tab PO DAILY [facility] Last Admin: 08/16/17 10:05 Dose: 1 tab Rosuvastatin Calcium (Crestor) 10 mg PO HS [facility] Last Admin: 08/15/17 21:37 Dose: 10 mg - Labs Labs: 08/13/17 16:50 08/16/17 08:00 PT 12.0 SECONDS (9.7-12.2) 08/13/17 16:50 INR 1.1 08/13/17 16:50 APTT 35 SECONDS (21-34) H 08/13/17 16:50 Assessment and Plan - Assessment and Plan (Free Text) Assessment: Patient is seen and examined. Alert, awake, denies sob or chest pains. Discussed with DR Snider, who saw the patient last night, has no indication for EP studies at this point, cleared for discharge. D/W DR Buenrostro, discharge plan for home today. Advised the patient to stop coreg and come to the office on Saturday with all the meds he takes at home.
--- NOTE | 2017-08-16 13:36 | PN ---
SUBJECTIVE: The patient denies any dizziness. He is still bradycardic and afortis. PHYSICAL EXAMINATION: VITAL SIGNS: Blood pressure 143/69, heart rate 49, temperature 98.2, respirations 20. HEENT: Normocephalic. CHEST: Clear. HEART: S1 and S2, regular. EXTREMITIES: No edema. LABORATORY DATA: The SMA-7 is entirely within normal limit. Magnesium is within normal limit at 1.9. ASSESSMENT: 1. Sinus bradycardia. 2. History of dizziness. 3. History of prostatic carcinoma. 4. History of atrial fibrillation in February of this year. CONDITIONS: Case was discussed with electrophysiology, Dr. Snider, who evaluated the patient yesterday and he recommended no pacemaker intervention at this time. Continue current hydralazine, Crestor, subcutaneous Lovenox and Norvasc and the case was discussed with 2 patient's son, and the patient will be kept off of his beta paola therapy. Osmani Rubin MD
--- NOTE | 2017-08-17 09:33 | CARD ---
APPROVED REPORT EKG Measurement Heart [id number] <Conclusion> Marked sinus bradycardia with premature atrial complexes Nonspecific ST abnormality Abnormal ECG
--- NOTE | 2017-08-19 08:10 | CON ---
DATE: CHIEF COMPLAINT: I was asked to see the patient because of bradyarrhythmias. HISTORY OF PRESENT ILLNESS: The patient is an extremely poor historian. He is a gentleman with history of hypertension, no history of hypercholesterolemia, smoking, or coronary artery disease in the past. The patient has been feeling well until about 2 weeks ago when he started feeling very lightheaded and weak. He was seen by Dr. Buenrostro in the office and was noted to be bradycardic and was advised to come to [facility]. At that time, the patient was on carvedilol 6.25 mg p.o. b.i.d. EKG done at that time shows extreme sinus bradycardia with junctional escape rhythm and no ST-T changes. TSH was normal. The patient's carvedilol was discontinued. The patient's rate gradually has improved to about 45 beats per minute now. The patient feels better. Denies any dizziness or syncope. PAST MEDICAL HISTORY: Significant for metastatic prostate CA. PERSONAL HISTORY: Does not smoke at this time. FAMILY HISTORY: Could not be obtained. REVIEW OF SYSTEMS: As above. All other systems negative. PHYSICAL EXAMINATION: GENERAL: The patient is alert and oriented x3. NECK: No jugular venous distention. LUNGS: Clinically clear. HEART: S1 and S2 ejection systolic murmur. ABDOMEN: Soft. No organomegaly or tenderness. EXTREMITIES: No edema of the legs. NEUROLOGIC: Extraocular movements are normal. LABORATORY DATA: EKG initial admission showed junctional rhythm with extreme sinus bradycardia and some conducted beats. No ST-T changes were noted. Subsequent EKG shows sinus bradycardia with 1:1 conduction [address] no acute [address]-T changes. ASSESSMENT AND PLAN: At this time, I had an extensive discussion with the primary care as well as cardiology. Beta-blockers will be discontinued. TSH was normal. Echocardiogram at that time showed concentric left ventricular hypertrophy with normal left ventricular function in February 2017. At this point, the patient will be observed. If no significant pauses occur, the patient can be discharged home. I will follow up as an patient to get Holter. Based on that further recommendations can be made. Michele Snider MD
--- NOTE | 2017-08-19 16:43 | CARD ---
APPROVED REPORT EKG Measurement Heart [id number] <Conclusion> Marked sinus bradycardia Septal infarct, age undetermined Abnormal ECG
== END 2017-08-16 13:55 | disposition home or self-care (01) | DRG 310 ==
LOC: C.ER 15:18 → C.9E 20:56 → C.6T 08-14 00:27
PROVIDERS: ADMIT Internal Medicine; ATTEND Internal Medicine
DX: R00.1 Bradycardia, unspecified (principal); I73.9 Peripheral vascular disease, unspecified; I10 Essential (primary) hypertension; F17.210 Nicotine dependence, cigarettes, uncomplicated; E87.6 Hypokalemia; I25.10 Atherosclerotic heart disease of native coronary artery without angina pectoris; Z85.46 Personal history of malignant neoplasm of prostate; T44.7X5A Adverse effect of beta-adrenoreceptor antagonists, initial encounter; I47.2 Ventricular tachycardia

== ENCOUNTER 2017-12-13 15:40 | Inpatient (IN) | payer MEDICARE, OTHER ==
[2017-12-13 15:40] VITALS: PULSE 126
[2017-12-13 16:31] LABS: BASO # 0.1 K/uL (0.0-0.2); BASO % 0.7 % (0.0-2.0); EOS # 0.2 K/uL (0.0-0.7); HEMOGLOBIN 12.4 g/dL (12.0-18.0); LYMPH # 1.3 K/uL (1.0-4.3); LYMPH % 12.8 % (20.0-40.0); MEAN CELL VOLUME 97.9 fL (80.0-94.0); MEAN CORPUSCULAR HEMOGLOBIN 34.6 pg (27.0-31.0); MEAN CORPUSCULAR HGB CONC 35.4 g/dL (33.0-37.0); MEAN PLATELET VOLUME 9.8 fL (7.2-11.7); MONO # 1.4 K/uL (0.0-0.8); MONO % 13.7 % (0.0-10.0); NEUT # 7.4 K/uL (1.8-7.0); NEUT % 70.8 % (50.0-75.0); RBC 3.57 Mil/uL (4.40-5.90); RED CELL DISTRIBUTION WIDTH 14.8 % (11.5-14.5); WHITE BLOOD COUNT 10.4 K/uL (4.8-10.8)
[2017-12-13 16:40] LABS: INR 1.1; PROTHROMBIN TIME 12.8 SECONDS (9.7-12.2)
[2017-12-13 16:41] LABS: CALCIUM 8.6 mg/dl (8.6-10.4)
[2017-12-13 16:53] LABS: CK-MB 0.85 ng/mL (0.0-3.38); TROPONIN I 0.078 ng/mL (0.00-0.120)
--- NOTE | 2017-12-13 17:37 | C.PDOC ---
History Of Present Illness 87yo male, presents to ED with complaints of chest pain, present for the past 1 week according to his family. The family reports the patient had been refusing to see a doctor for his symptoms and convinced him today to see Dr. Buenrostro; patient was informed by Dr. Buenrostro to come to the ER for further evaluation. Patient states his pain is in his mid-chest and worsens after eating. He denies any shortness of breath, light headedness. He has no other medical complaints. Time Seen by Provider: 12/13/17 15:46 Chief Complaint (Nursing): Chest Pain History Per: Patient History/Exam Limitations: no limitations Onset/Duration Of Symptoms: Days Current Symptoms Are (Timing): Still Present Quality: "Pain" Additional History Per: Family Past Medical History Reviewed: Historical Data, Nursing Documentation, Vital Signs Vital Signs: Last Vital Signs Temp 97.9 F 12/13/17 15:59 Pulse 63 12/13/17 17:05 Resp 15 12/13/17 17:05 BP 149/60 12/13/17 17:05 Pulse Ox 97 12/13/17 19:07 - Medical History PMH: HTN Denies: Chronic Kidney Disease Surgical History: Cholecystectomy, Coronary Stent - [facility] Procedures RESECTION OF PROSTATE, ENDO (02/25/17) Family History: States: Unknown Family Hx - Social History Hx Tobacco Use: Yes Hx Alcohol Use: No Hx Substance Use: No - Immunization History Hx Tetanus Toxoid Vaccination: No Hx Influenza Vaccination: Yes Hx Pneumococcal Vaccination: Yes Review Of Systems Except As Marked, All Systems Reviewed And Found Negative. Cardiovascular: Positive for: Chest Pain. Negative for: Light Headedness Respiratory: Negative for: Shortness of Breath Physical Exam - Physical Exam Appears: Non-toxic Skin: Normal Color, Warm, Dry Head: Atraumatic, Normacephalic Eye(s): bilateral: Normal Inspection Neck: Normal ROM, Supple Chest: Symmetrical, No Tenderness Cardiovascular: Rhythm Regular Respiratory: Normal Breath Sounds Neurological/Psych: Oriented x3 ED Course And Treatment - Laboratory Results Result Diagrams: 12/13/17 16:26 12/13/17 16:26 ECG: Interpreted By Me, Viewed By Me ECG Rhythm: Sinus Rhythm Interpretation Of ECG: Occasional PVC's. ST/T changes in inferior leads Rate From EC O2 Sat by Pulse Oximetry: 97 (RA) Pulse Ox Interpretation: Normal Medical Decision Making Medical Decision Making: Impression: Chest pain Plan: -- Labs -- CXR -- EKG Time: 1750 PROCEDURE: CHEST RADIOGRAPH, 1 VIEW HISTORY: CP COMPARISON: 08/13/2017 FINDINGS: LUNGS: Clear. PLEURA: No pneumothorax or pleural fluid seen. CARDIOVASCULAR: Mild cardiomegaly. Descending thoracic aortic stent. OSSEOUS STRUCTURES: No significant abnormalities. VISUALIZED UPPER ABDOMEN: Normal. OTHER FINDINGS: None. IMPRESSION: No active disease. Disposition - Disposition Disposition: HOSPITALIZED Disposition Time: 19:30 Condition: FAIR Forms: [employer] (Amharic) - Clinical Impression Clinical Impression: Chest pain - PA / MICA PLATE LAYER / Resident Statement MD/DO has reviewed & agrees with the documentation as recorded. - Scribe Statement The provider has reviewed the documentation as recorded by the Treyibe Asuncion James Provider Scribe Attestation: All medical record entries made by the Scribe were at my direction and personally dictated by me. I have reviewed the chart and agree that the record accurately reflects my personal performance of the history, physical exam, medical decision making, and the department course for this patient. I have also personally directed, reviewed, and agree with the discharge instructions and disposition. Decision To Admit - Pt Status Changed To: Hospital Disposition Of: Observation - . Bed Request Type: Telemetry Admitting Physician: Jeanne Buenrostro Patient Diagnosis: Chest pain
[2017-12-13 18:35] LABS: SQUAMOUS EPITHIAL 1 /hpf (0-5); URINE BILIRUBIN NEGATIVE (NEGATIVE); URINE BLOOD NEGATIVE (NEGATIVE); URINE CLARITY Hazy (Clear); URINE COLOR Amber (YELLOW); URINE GLUCOSE (UA) NORMAL (Normal); URINE LEUKOCYTE ESTERASE NEG Leu/uL (Negative); URINE NITRATE NEGATIVE (NEGATIVE); URINE PROTEIN 2+ mg/dL (NEGATIVE)
[2017-12-13] MEDS ORDERED: Sodium Chloride 0.9% 1,000 ML IV ONE (20:16)
[2017-12-13] MEDS ORDERED: Iodixanol 320 MG/ML 100 ML BOTTLE IV ONE (20:51)
[2017-12-13] MEDS: Acetylcysteine 20% 3 ML NEB PO SCH (21:16)
--- NOTE | 2017-12-13 23:14 | CT ---
EXAM: CT Chest Without and With Intravenous Contrast CT Abdomen and Pelvis Without and With Intravenous Contrast CLINICAL HISTORY: 87 years old, male; Condition or disease; Other: Aneursym; Lung condition and disease; Other: Aortic anersym; Additional info: Aortic aneurysm TECHNIQUE: Axial computed tomography images of the chest, abdomen and pelvis without and with intravenous contrast. All CT scans at this facility use one or more dose reduction techniques, viz.: automated exposure control; ma/kV adjustment per patient size (including targeted exams where dose is matched to indication; i.e. head); or iterative reconstruction technique. Coronal and sagittal reformatted images were created and reviewed. CONTRAST: 100 mL of VISIPAQUE 320 administered intravenously. COMPARISON: No relevant prior studies available. FINDINGS: CHEST: Lungs: Unremarkable. No mass. No consolidation. Pleural space: Trace left pleural fluid. No pneumothorax. Heart: Moderate cardiomegaly. No significant pericardial effusion. ABDOMEN: Liver: Hepatic steatosis. Gallbladder and bile ducts: Cholecystectomy. No ductal dilation. Pancreas: Unremarkable. No ductal dilation. No mass. Spleen: Unremarkable. No splenomegaly. Adrenals: Unremarkable. No mass. Kidneys and ureters: Unremarkable. No obstructing stones. No hydronephrosis. No solid mass. Stomach and bowel: Unremarkable. No obstruction. Appendix: No findings to suggest acute appendicitis. PELVIS: Bladder: Unremarkable. No stones. No mass. Reproductive: Unremarkable as visualized. CHEST, ABDOMEN and PELVIS: Intraperitoneal space: Unremarkable. No significant fluid collection. No free air. Bones/joints: Spinal degenerative changes. Sclerotic lesion inferior margin T11, stable. No acute fracture. No dislocation. Soft tissues: Complex fluid collection in the subcutaneous tissues of the left lower quadrant. Vasculature: No pulmonary embolism. Ascending thoracic aorta measures 3.6 CM. Transverse portion of the aorta measures 3.8 CM. Marked aneurysmal dilatation of descending thoracic aorta. This measures 9 CM and this has increased slightly in size from 8 CM on prior exam. There is a thoracic aortic endograft. The lumen is patent. The distal portion of the endograft is not well approximated to the aortic wall and contrast can be seen streaming back around the distal head of the graft. This is consistent with an endoleak. Lymph nodes: Mediastinal lymph nodes are calcified consistent with old granulomatous disease. Mildly enlarged left periaortic lymph nodes. IMPRESSION: 1. Interval placement of an endograft in descending thoracic aorta. Widely patent lumen. Slight increase in sac size from 8-9 CM. Poor distal intact and with associated endoleak. 2. Remainder of findings as above.
[2017-12-14 01:39] LABS: CK-MB 0.85 ng/mL (0.0-3.38); TROPONIN I 0.098 ng/mL (0.00-0.120)
--- NOTE | 2017-12-14 07:22 | CON ---
DATE: REASON FOR CONSULTATION: Chest pain. HISTORY OF PRESENT ILLNESS: The patient is an 87-year-old male who has a history of metastatic prostatic carcinoma, history of paroxysmal atrial fibrillation and history of sinus bradycardia in the past as well as history of endovascular stenting for descending thoracic aneurysm. He presents because of chest pain which he described as sharp when he takes deep breath or cough. The patient's presenting EKG with sinus rhythm and at that time I am evaluating the patient, the patient was in rapid atrial fibrillation on the monitor. The patient denies any recent dizziness or syncope. The patient sustained a fall few weeks ago on the ice, but sustained no injury. The patient is unaware of any coronary intervention in the past or history of heart attack. SOCIAL HISTORY: The patient is smoker. He lives with his . MEDICATIONS: The patient's home medications include Norvasc 5 mg once a day, aspirin 81 mg once a day, ferrous sulfate 325 mg once a day, simvastatin 40 mg once a day, Casodex 50 mg daily. REVIEW OF SYSTEMS: No fever or chills. No vomiting or diarrhea, no abdominal pain. PHYSICAL EXAMINATION: GENERAL: The patient is an elderly male who does not appeared to be in acute distress. VITAL SIGNS: Blood pressure 149/60, heart rate 63, temperature 97.9, respirations 15. HEENT: Normocephalic. CHEST: Minimal rhonchi. HEART: S1 and S2 regular. ABDOMEN: Soft. EXTREMITIES: No edema. LABORATORY DATA: Hemoglobin and hematocrit 12.4 and 35.0, white count 10.4, and platelet count 29,000. SMA-7: Sodium 135, potassium 3.1, chloride 97, CO2 of 27, glucose 114, BUN 33, creatinine 1.6. INR is 1.1. Chest CT scan performed in March of last year without contrast revealed the ascending aorta measures 3.8 cm, proximal descending aorta measures approximately 3.8 cm, descending/aortic aneurysm and aortic graft identified. The aneurysm, in fact, measures 7.1 cm in its transverse diameter. changes. Left greater than right soft tissue consistent with gynecomastia, cholecystectomy. An echo of last year revealed normal ejection fraction. ASSESSMENT: 1. Chest pain, rule out myocardial infarction. 2. Rule out aortic dissection versus worsening of the aortic aneurysm. 3. Chronic insufficiency. 4. History of prostatic carcinoma. RECOMMENDATIONS: 1. Obtain chest CT angio after hydrating the patient with normal saline and administering Mucomyst. 2. Start IV Cardizem infusion at 5 mg an hour. 3. Anticoagulation will be considered after obtaining chest CT angio results. This case will further be discussed with the primary physician. The management was discussed with the patient and son at the bedside. Osmani Rubin MD
[2017-12-14] MEDS ORDERED: Pneumococcal 23-Valent Vaccine IM ONE (07:56)
[2017-12-14] MEDS: Multivitamin With Minerals Tab PO SCH (09:55)
[2017-12-14] MEDS ORDERED: Home Med 1 UNIT (Bicalutamide [Casodex] 50 MG) PO SCH ×2 (10:00)
[2017-12-14] MEDS ORDERED: [UNRECOGNIZED DRUG - OTHER] PO SCH ×2 (10:00)
[2017-12-14 12:01] LABS: CK-MB 0.84 ng/mL (0.0-3.38); TROPONIN I 0.086 ng/mL (0.00-0.120)
[2017-12-14 14:58] LABS: CALCIUM 8.6 mg/dl (8.6-10.4)
[2017-12-14] MEDS ORDERED: Potassium Chloride 20 mEq ER Tab PO ONE (16:00)
[2017-12-14 17:33] LABS: CK-MB 0.77 ng/mL (0.0-3.38); TROPONIN I 0.086 ng/mL (0.00-0.120)
--- NOTE | 2017-12-14 17:45 | PN ---
DATE: FOLLOWUP SUBJECTIVE: The patient converted to sinus rhythm. IV Cardizem was discontinued. He denies any chest pain. PHYSICAL EXAMINATION: VITAL SIGNS: Blood pressure 129/62, heart rate 67, temperature 97.2, respirations 20. HEENT: Normocephalic. CHEST: Bilateral rhonchi. HEART: S1 and S2 regular. EXTREMITIES: No edema. LABORATORY DATA: Three sets of troponins are negative. SMA-7: Sodium 137, potassium 3.2, chloride 97, CO2 of 32, glucose 99, BUN 28, creatinine 1.5. Chest and abdomen CT angio revealed interval placement of an endograft in descending thoracic aorta. Widely patent lumen. Slight increase in the size from 8 to 9 cm. Poor distal contact and associated endoleak. I must mention that the description of the endograft was mentioned on last year CAT scan and it is not a new finding. ASSESSMENT: 1. Paroxysmal atrial fibrillation. 2. Descending thoracic aneurysm, worsening in size from 8 to 9 cm with endograft leak. 3. Hypokalemia. RECOMMENDATIONS: Continue Norvasc 5 mg once a day, subcutaneous heparin 5000 units q. 12 hours, Crestor at 10 mg once a day, aspirin 80 mg once a day. Continue Mucomyst. K-Dur 20 mEq was ordered today and I recommend continuing the patient on daily K-Dur 20 mEq. Vascular Surgery consult has been requested. Osmani Rubin MD
--- NOTE | 2017-12-14 17:50 | CP.PCM.CON ---
History of Present Illness - History of Present Illness History of Present Illness: Vascular Surgery Pt. is a 87 y/o male with history of thoracic aneurysm and a smoker presents to the hospital with complaint of chest pain. Pt is admitted for rapid afib. Was on Cardizem and resolved. ACS is ruled out. According to the nurse, pt. has Alzheimer's and therefore, was a poor historian. Pt. states the pain is on his left sternal side and started 3-4 days ago. As per pt., Dr. Buenrostro, his PMD, instructed the pt. to go to the ED. Pt. states the pain worsens with eating. Currently, he denies CP, SOB, abdominal pain, n/v, and constipation. Pt lives w his . We were unable to get a hold of family to today for more history. 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 Surgery consulted for Type I endoleak regarding enlarging thoracic aneurysm. Social: live with in [place]; smokes 1 pack/day; denies drugs, alcohol MHx: Alzheimer, prostate CA Allergies: denies Surgery: prostate resection (unspecified) Review of Systems - Review of Systems Review of Systems: See HPI - Constitutional Constitutional: As Per HPI. absent: Chills, Fever - EENT Eyes: As Per HPI Ears: As Per HPI Nose/Mouth/Throat: As Per HPI - Cardiovascular Cardiovascular: Chest Pain. absent: Dyspnea - Respiratory Respiratory: As Per HPI - Gastrointestinal Gastrointestinal: As Per HPI. absent: Constipation, Diarrhea, Nausea, Vomiting - Genitourinary Genitourinary: As Per HPI - Musculoskeletal Musculoskeletal: As Per HPI Past Patient History - Infectious Disease Hx of Infectious Diseases: None - Past Medical History & Family History Past Medical History?: Yes - Past Social History Smoking Status: Never Smoked - CARDIAC Hx Hypertension: Yes - PULMONARY Hx Respiratory Disorders: No - NEUROLOGICAL Hx Neurological Disorder: No - HEENT Hx HEENT Problems: Yes Other/Comment: WEAR EYEGLASSES FOR READING - RENAL Hx Chronic Kidney Disease: No - ENDOCRINE/METABOLIC Hx Endocrine Disorders: No - HEMATOLOGICAL/ONCOLOGICAL Hx Blood Disorders: No Hx Cancer: Yes (prostate) - INTEGUMENTARY Hx Dermatological Problems: No - MUSCULOSKELETAL/RHEUMATOLOGICAL Hx Falls: No - GASTROINTESTINAL Hx Gastrointestinal Disorders: No - GENITOURINARY/GYNECOLOGICAL Hx Genitourinary Disorders: Yes Hx Hematuria: Yes Hx Prostate Cancer: Yes Hx Prostate Problems: Yes - PSYCHIATRIC Hx Substance Use: No - SURGICAL HISTORY Hx Cholecystectomy: Yes Hx Coronary Stent: Yes - ANESTHESIA Hx Anesthesia: Yes Hx Anesthesia Reactions: No Hx Malignant Hyperthermia: No Meds Allergies/Adverse Reactions: Allergies Allergy/AdvReac Type Severity Reaction Status Date / Time No Known Allergies Allergy Verified 08/13/17 15:51 - Medications Medications: Current Medications Acetylcysteine (Acetylcysteine 20%) 3 ml PO BID [facility] Last Admin: 12/13/17 21:16 Dose: 3 ml Amlodipine Besylate (Norvasc) 5 mg PO DAILY [facility] Last Admin: 12/14/17 09:55 Dose: 5 mg Aspirin (Aspirin Chewable) 81 mg PO DAILY [facility] Last Admin: 12/14/17 09:55 Dose: 81 mg Ferrous Sulfate (Feosol) 325 mg PO DAILY [facility] Last Admin: 12/14/17 12:02 Dose: 325 mg Heparin Sodium (Porcine) (Heparin) 5,000 units SC Q12 [facility] Last Admin: 12/14/17 09:56 Dose: 5,000 units Home Med (Bicalutamide [Casodex]) 50 mg PO DAILY [facility] Home Med (Fe Gluconate) 1 tab PO DAILY [facility] Multivitamins/Minerals (Therapeutic-M Tab) 1 tab PO DAILY [facility] Last Admin: 12/14/17 09:55 Dose: 1 tab Potassium Chloride (K-Dur 20 Meq Er Tab) 20 meq PO DAILY [facility] Rosuvastatin Calcium (Crestor) 10 mg PO [facility] Physical Exam - Constitutional Appears: No Acute Distress - Head Exam Head Exam: ATRAUMATIC, NORMAL INSPECTION, NORMOCEPHALIC - Eye Exam Eye Exam: EOMI, Normal appearance, PERRL Pupil Exam: NORMAL ACCOMODATION, PERRL - ENT Exam ENT Exam: Mucous Membranes Moist, Normal Exam - Neck Exam Neck exam: Positive for: Normal Inspection - Respiratory Exam Respiratory Exam: Clear to Auscultation Bilateral, NORMAL BREATHING PATTERN - Cardiovascular Exam Cardiovascular Exam: Tachycardia, +S1, +S2 - GI/Abdominal Exam GI & Abdominal Exam: Normal Bowel Sounds, Soft. absent: Guarding, Tenderness Additional comments: Palpable mass on L upper abd - Exam Exam: NORMAL INSPECTION - Extremities Exam Extremities exam: Positive for: normal inspection - Back Exam Back exam: NORMAL INSPECTION - Neurological Exam Neurological exam: Alert, CN II-XII Intact, Normal Gait, Oriented x3, Reflexes Normal - Psychiatric Exam Psychiatric exam: Normal Affect, Normal Mood - Skin Skin Exam: Normal Color, Warm Results - Vital Signs Recent Vital Signs: Last Vital Signs Temp 97.2 F L 12/14/17 15:00 Pulse 67 12/14/17 15:00 Resp 20 12/14/17 16:31 BP 129/62 12/14/17 15:00 Pulse Ox 96 12/14/17 15:00 - Labs Result Diagrams: 12/13/17 16:26 12/14/17 14:44 Labs: Laboratory Results - last 24 hr 12/13/17 12/14/17 12/14/17 18:28 01:04 11:28 Sodium Potassium Chloride Carbon Dioxide Anion Gap BUN Creatinine Est GFR ( Amer) Est GFR (Non-Af Amer) Random Glucose Calcium Total Creatine Kinase 53 L 53 L CK-MB (Mass) 0.85 0.84 Troponin I 0.0980 0.0860 Urine Color [place] Urine Clarity Hazy Urine pH 5.0 Ur Specific [place] 1.021 Urine Protein 2+ H Urine Glucose (UA) Normal Urine Ketones Trace Urine Blood Negative Urine Nitrate Negative Urine Bilirubin Negative Urine Urobilinogen 4.0 Ur Leukocyte Esterase Neg Urine WBC (Auto) 6 H Urine RBC (Auto) 1 Ur Squamous Epith Cells 1 Hyaline Casts 3-5 H 12/14/17 12/14/17 14:44 16:54 Sodium 137 Potassium 3.2 L Chloride 97 L Carbon Dioxide 32 H Anion Gap 12 BUN 28 H Creatinine 1.5 Est GFR ( Amer) 54 Est GFR (Non-Af Amer) 44 Random Glucose 99 Calcium 8.6 Total Creatine Kinase 49 L CK-MB (Mass) 0.77 Troponin I 0.0860 Urine Color Urine Clarity Urine pH Ur Specific [place] Urine Protein Urine Glucose (UA) Urine Ketones Urine Blood Urine Nitrate Urine Bilirubin Urine Urobilinogen Ur Leukocyte Esterase Urine WBC (Auto) Urine RBC (Auto) Ur Squamous Epith Cells Hyaline Casts Assessment & Plan - Assessment and Plan (Free Text) Assessment: Type I endoleak-thoracic aneurysm Plan: Will obtain more history from family: Son: [phone] May need Cardiothoracic intervention We will follow [employer] Coordinator on [facility]ard Medical management Pain medications PRN D/W Dr. Nugent - Date & Time Date: 12/14/17 Time: 06:00
--- NOTE | 2017-12-15 01:45 | HP ---
HISTORY OF PRESENT ILLNESS: Patient is an 87-year-old male with history of multiple medical problems including metastatic prostate cancer, endovascular graft of the descending aorta, hypertension, degenerative spine disease, presented to my office on the day of admission for chest pain. Patient was referred to emergency room for evaluation where he was admitted for further management. Cardiology consultation was called and patient was seen by Cardiology also on admission. REVIEW OF SYSTEMS: Patient's review of systems reveal that he has poor appetite and he was not eating well for the last 2 weeks prior to this admission. Patient stated that also eating triggers the pain more after eating or after he is breathing hard. Other review of systems is unsteady gait and generalized weakness. ALLERGIES: NO KNOWN ALLERGY. HOME MEDICATIONS: As per MAR. SOCIAL HISTORY: Actively smoking, more than 70 years. No EtOH or substance abuse. FAMILY HISTORY: Not contributory. PAST MEDICAL HISTORY: Hypertension, degenerative spine disease, metastatic prostate cancer, descending aortic aneurysm with endovascular graft, atrial fibrillation. PHYSICAL EXAMINATION: GENERAL: Patient is in bed, not in any cardiopulmonary distress at the time of this examination. VITAL SIGNS: With blood pressure 119/64, temperature 98.1, respiratory rate 20, and pulse 90. HEENT: Pupils equal, reactive to light. Normal-appearing mucosa of the conjunctivae, oropharynx, and nasal membrane mucosa. NECK: Supple. No JVD. No carotid bruit. No lymph nodes. No thyromegaly. CHEST AND LUNGS: Bilateral symmetrical expansion. Good air exchange. No rales, no rhonchi. CARDIOVASCULAR SYSTEM: PMI not localized. S1, S2. No additional sounds. ABDOMEN: Normoactive bowel sounds. No tenderness. No organomegaly. No masses. EXTREMITIES: No cyanosis, no clubbing, no edema. CENTRAL NERVOUS SYSTEM: Alert, awake, oriented x2. No neurological deficit could be appreciated. ASSESSMENT: 1. Chest pain, rule out acute coronary syndrome. 2. Endovascular graft of the descending aorta. 3. Degenerative spine disease. 4. Hypertension. PLAN: Cardiology consult and follow the recommendations. Keep patient on telemetry. Resume patient's home medications. Discussed the patient's condition with the patient's daughter. Jeanne Buenrostro MD
[2017-12-15 08:57] LABS: BASO # 0.1 K/uL (0.0-0.2); BASO % 0.8 % (0.0-2.0); EOS # 0.3 K/uL (0.0-0.7); EOS % 4.3 % (0.0-4.0); HEMOGLOBIN 11.9 g/dL (12.0-18.0); LYMPH # 0.9 K/uL (1.0-4.3); LYMPH % 13.8 % (20.0-40.0); MEAN CELL VOLUME 97.8 fL (80.0-94.0); MEAN CORPUSCULAR HEMOGLOBIN 34.1 pg (27.0-31.0); MEAN CORPUSCULAR HGB CONC 34.9 g/dL (33.0-37.0); MEAN PLATELET VOLUME 9.5 fL (7.2-11.7); MONO # 0.8 K/uL (0.0-0.8); MONO % 12.4 % (0.0-10.0); NEUT # 4.4 K/uL (1.8-7.0); NEUT % 68.7 % (50.0-75.0); RBC 3.47 Mil/uL (4.40-5.90); RED CELL DISTRIBUTION WIDTH 14.6 % (11.5-14.5); WHITE BLOOD COUNT 6.4 K/uL (4.8-10.8)
[2017-12-15 09:17] LABS: ALBUMIN 3.5 g/dL (3.5-5.0); CALCIUM 8.3 mg/dl (8.6-10.4)
--- NOTE | 2017-12-15 09:17 | CP.PCM.PN ---
Subjective - Date & Time of Evaluation Date of Evaluation: 12/15/17 Time of Evaluation: 09:15 - Subjective Subjective: Vasular Pt seen. Resting comfortably. NAEON. Objective - Vital Signs/Intake and Output Vital Signs (last 24 hours): Temp Pulse Resp BP Pulse Ox 97.0 F L 60 20 151/63 H 97 12/15/17 08:35 12/15/17 08:35 12/15/17 08:35 12/15/17 08:35 12/15/17 08:35 Intake and Output: 12/15/17 12/15/17 06:59 18:59 Intake Total 240 Balance 240 - Medications Medications: Current Medications Acetylcysteine (Acetylcysteine 20%) 3 ml PO BID [facility] Last Admin: 12/13/17 21:16 Dose: 3 ml Amlodipine Besylate (Norvasc) 5 mg PO DAILY [facility] Last Admin: 12/14/17 09:55 Dose: 5 mg Aspirin (Aspirin Chewable) 81 mg PO DAILY [facility] Last Admin: 12/14/17 09:55 Dose: 81 mg Ferrous Sulfate (Feosol) 325 mg PO DAILY [facility] Last Admin: 12/14/17 12:02 Dose: 325 mg Heparin Sodium (Porcine) (Heparin) 5,000 units SC Q12 [facility] Last Admin: 12/14/17 21:23 Dose: 5,000 units Home Med (Bicalutamide [Casodex]) 50 mg PO DAILY [facility] Multivitamins/Minerals (Therapeutic-M Tab) 1 tab PO DAILY [facility] Last Admin: 12/14/17 09:55 Dose: 1 tab Potassium Chloride (K-Dur 20 Meq Er Tab) 20 meq PO DAILY [facility] Rosuvastatin Calcium (Crestor) 10 mg PO HS [facility] Last Admin: 12/14/17 21:22 Dose: 10 mg - Labs Labs: 12/15/17 08:49 12/14/17 14:44 PT 12.8 SECONDS (9.7-12.2) H 12/13/17 16:26 INR 1.1 12/13/17 16:26 APTT 27 SECONDS (21-34) 12/13/17 16:26 - Constitutional Appears: No Acute Distress - Head Exam Head Exam: ATRAUMATIC, NORMAL INSPECTION, NORMOCEPHALIC - Eye Exam Eye Exam: EOMI, Normal appearance, PERRL Pupil Exam: NORMAL ACCOMODATION, PERRL - ENT Exam ENT Exam: Mucous Membranes Moist, Normal Exam - Neck Exam Neck Exam: Full ROM, Normal Inspection. absent: Lymphadenopathy - Respiratory Exam Respiratory Exam: Clear to Ausculation Bilateral, NORMAL BREATHING PATTERN - Cardiovascular Exam Cardiovascular Exam: REGULAR RHYTHM, +S1, +S2. absent: Murmur - GI/Abdominal Exam GI & Abdominal Exam: Soft, Normal Bowel Sounds. absent: Distended, Tenderness - Extremities Exam Extremities Exam: Full ROM, Normal Capillary Refill, Normal Inspection. 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 Nugent
[2017-12-15] MEDS: Multivitamin With Minerals Tab PO SCH (09:40)
[2017-12-15] MEDS: Potassium Chloride 20 mEq ER Tab PO SCH (09:40)
[2017-12-15] MEDS ORDERED: Potassium Chloride 20 mEq ER Tab PO ONE (16:00)
--- NOTE | 2017-12-15 23:37 | PN ---
DATE: SUBJECTIVE: Patient is in one-to-one watch. He denies any chest pain. He has very poor appetite. PHYSICAL EXAMINATION: VITAL SIGNS: Blood pressure 127/64, heart rate 66, temperature 98, respirations 20. HEENT: Normocephalic. CHEST: Clear. HEART: S1 and S2 regular. EXTREMITIES: No edema. LABORATORY DATA: Today's potassium is 3.2 and glucose 118. ASSESSMENT: 1. Paroxysmal atrial fibrillation. 2. Hypokalemia. 3. Descending thoracic aneurysm worsening in size with endograft leak. RECOMMENDATIONS: Continue current Crestor at 10 mg once a day, Feosol 325 mg once a day, subcutaneous heparin 5000 units q. 12 hours, K-Dur at 20 mEq orally daily was initiated, continue Norvasc 5 mg once a day. I did request the nurse to order Ensure with vanilla flavor as per the patient's choice, three times a day. Osmani Rubin MD
--- NOTE | 2017-12-16 04:13 | PN ---
DATE: 12/15/2017 DAILY PROGRESS NOTE SUBJECTIVE: Patient is seen today, 12/15/2017. He is not in any cardiopulmonary distress and patient denied to have any chest pain today. PHYSICAL EXAMINATION: VITAL SIGNS: Blood pressure 127/64, temperature 98, respiratory rate 20 and pulse 56. HEENT: Pupils equal, reactive to light. Normal-appearing mucosa of the conjunctivae, oropharynx, and nasal membrane mucosa. NECK: Supple. No JVD. No carotid bruit. No lymph node. No thyromegaly. CHEST AND LUNGS: Bilateral symmetrical expansion. Good air exchange. No rales, no rhonchi. CARDIOVASCULAR SYSTEM: PMI not localized. S1, S2. No additional sounds. ABDOMEN: Normoactive bowel sounds. No tenderness. No organomegaly. No masses. EXTREMITIES: No cyanosis, no clubbing, no edema. CENTRAL NERVOUS SYSTEM: Alert, awake, oriented x2. Moves all extremities equally. ASSESSMENT: 1. Chest pain, rule out myocardial infarction. 2. Hypertension. 3. Status post endovascular procedure for descending thoracic aorta. 4. Smoker. 5. Chronic obstructive pulmonary disease. PLAN: Continue current management and follow Cardiology recommendations. Jeanne Buenrostro MD
--- NOTE | 2017-12-16 07:53 | CP.PCM.PN ---
Subjective - Date & Time of Evaluation Date of Evaluation: 12/16/17 Time of Evaluation: 06:30 - Subjective Subjective: Vascular Surgery Note for Dr. Nugent Patient seen and examined at bedside. No acute event overnight. Patient denying any pain. [place] [facility] [place] per son. Patient has no complaints at this time. Objective - Vital Signs/Intake and Output Vital Signs (last 24 hours): Temp Pulse Resp BP Pulse Ox 98.4 F 64 20 135/55 L 95 12/16/17 04:33 12/16/17 04:33 12/16/17 04:33 12/16/17 04:33 12/15/17 23:45 - Medications Medications: Current Medications Acetylcysteine (Acetylcysteine 20%) 3 ml PO BID [facility] Last Admin: 12/13/17 21:16 Dose: 3 ml Amlodipine Besylate (Norvasc) 5 mg PO DAILY [facility] Last Admin: 12/15/17 09:41 Dose: 5 mg Aspirin (Aspirin Chewable) 81 mg PO DAILY [facility] Last Admin: 12/15/17 09:41 Dose: 81 mg Ferrous Sulfate (Feosol) 325 mg PO DAILY [facility] Last Admin: 12/15/17 09:40 Dose: 325 mg Heparin Sodium (Porcine) (Heparin) 5,000 units SC Q12 [facility] Last Admin: 12/15/17 21:27 Dose: 5,000 units Home Med (Bicalutamide [Casodex]) 50 mg PO DAILY [facility] Multivitamins/Minerals (Therapeutic-M Tab) 1 tab PO DAILY [facility] Last Admin: 12/15/17 09:40 Dose: 1 tab Potassium Chloride (K-Dur 20 Meq Er Tab) 20 meq PO DAILY [facility] Last Admin: 12/15/17 09:40 Dose: 20 meq Rosuvastatin Calcium (Crestor) 10 mg PO HS [facility] Last Admin: 12/15/17 21:27 Dose: 10 mg - Labs Labs: 12/15/17 08:49 12/15/17 08:49 PT 12.8 SECONDS (9.7-12.2) H 12/13/17 16:26 INR 1.1 12/13/17 16:26 APTT 27 SECONDS (21-34) 12/13/17 16:26 - Constitutional Appears: No Acute Distress - Head Exam Head Exam: ATRAUMATIC, NORMOCEPHALIC - Eye Exam Eye Exam: Normal appearance - ENT Exam ENT Exam: Mucous Membranes Moist - Respiratory Exam Respiratory Exam: NORMAL BREATHING PATTERN - Cardiovascular Exam Cardiovascular Exam: REGULAR RHYTHM - GI/Abdominal Exam GI & Abdominal Exam: Soft, Normal Bowel Sounds. absent: Distended, Firm, Guarding, Rigid, Tenderness, Rebound - Extremities Exam Extremities Exam: Normal Capillary Refill - Neurological Exam Neurological Exam: Alert, Awake - Psychiatric Exam Psychiatric exam: Normal Affect, Normal Mood - Skin Skin Exam: Dry, Intact, Normal Color, Warm Assessment and Plan - Assessment and Plan (Free Text) Plan: 87 M with PMH of AAA EVAR repair presents for Type I endoleak -[place] [facility] [place] for [place] -Discussed with Dr. Raffi Sorenson PGY1
[2017-12-16 09:44] VITALS: O2SAT 96
[2017-12-16] MEDS: Potassium Chloride 20 mEq ER Tab PO SCH (10:07)
[2017-12-16] MEDS: Multivitamin With Minerals Tab PO SCH (10:07)
[2017-12-16] MEDS: Acetylcysteine 20% 3 ML NEB PO SCH (11:06)
--- NOTE | 2017-12-16 13:30 | CP.PCM.PN ---
Subjective - Date & Time of Evaluation Date of Evaluation: 12/16/17 Time of Evaluation: 12:30 Objective - Vital Signs/Intake and Output Vital Signs (last 24 hours): Temp Pulse Resp BP Pulse Ox 98.7 F 60 20 153/71 H 96 12/16/17 09:43 12/16/17 09:43 12/16/17 09:43 12/16/17 09:43 12/16/17 09:43 - Medications Medications: Current Medications Amlodipine Besylate (Norvasc) 5 mg PO DAILY [facility] Last Admin: 12/16/17 10:07 Dose: 5 mg Aspirin (Aspirin Chewable) 81 mg PO DAILY [facility] Last Admin: 12/16/17 10:06 Dose: 81 mg Ferrous Sulfate (Feosol) 325 mg PO DAILY [facility] Last Admin: 12/16/17 10:06 Dose: 325 mg Heparin Sodium (Porcine) (Heparin) 5,000 units SC Q12 [facility] Last Admin: 12/16/17 10:07 Dose: 5,000 units Home Med (Bicalutamide [Casodex]) 50 mg PO DAILY [facility] Multivitamins/Minerals (Therapeutic-M Tab) 1 tab PO DAILY [facility] Last Admin: 12/16/17 10:07 Dose: 1 tab Potassium Chloride (K-Dur 20 Meq Er Tab) 20 meq PO DAILY [facility] Last Admin: 12/16/17 10:07 Dose: 20 meq Rosuvastatin Calcium (Crestor) 10 mg PO HS [facility] Last Admin: 12/15/17 21:27 Dose: 10 mg - Labs Labs: 12/15/17 08:49 12/15/17 08:49 PT 12.8 SECONDS (9.7-12.2) H 12/13/17 16:26 INR 1.1 12/13/17 16:26 APTT 27 SECONDS (21-34) 12/13/17 16:26
[2017-12-16 13:45] VITALS: BP 138/51; PULSE 57; RESP 95; TEMP 98.2
--- NOTE | 2017-12-16 16:37 | PN ---
DATE: SUBJECTIVE: The patient denies any chest pain or back pain. PHYSICAL EXAMINATION: VITAL SIGNS: Blood pressure 138/51, heart rate 67, temperature 98.2, and respirations 20. HEENT: Normocephalic. CHEST: Clear. HEART: S1 and S2, regular. EXTREMITIES: Significant muscle wasting. ASSESSMENT: 1. Paroxysmal atrial fibrillation. 2. Hypokalemia. 3. Descending thoracic aneurysm, worsening in size with endograft leak. 4. Metastatic prostatic carcinoma. RECOMMENDATIONS: I discontinued subcutaneous Lovenox. Discussed the case with Dr. Buenrostro. As per family request, the patient will be transferred to [facility] under the care of Dr. Yo, the cardiothoracic surgeon for further evaluation and workup on endovascular leak. Osmani Rubin MD
--- NOTE | 2017-12-16 23:31 | CARD ---
APPROVED REPORT EKG Measurement Heart [id number] <Conclusion> Normal sinus rhythm Nonspecific ST and T wave abnormality Abnormal ECG
--- NOTE | 2017-12-16 23:37 | CARD ---
APPROVED REPORT EKG Measurement Heart [id number] <Conclusion> Normal sinus rhythm Nonspecific ST and T wave abnormality Abnormal ECG
--- NOTE | 2017-12-16 23:41 | CARD ---
APPROVED REPORT EKG Measurement Heart [id number] <Conclusion> Atrial fibrillation with rapid ventricular response with premature ventricular or aberrantly conducted complexes ST & T wave abnormality, consider inferior ischemia Abnormal ECG
--- NOTE | 2017-12-17 00:11 | CON ---
DATE: REASON FOR CONSULTATION: Left thoracic aortic aneurysm, type-1 endoleak. HISTORY OF PRESENT ILLNESS: Patient is an 87-year-old man with coronary artery disease and dementia. He was admitted for complaint of left costal chest pain. While in the emergency room, he was found to be in atrial fibrillation with rapid ventricular response. Rate was controlled with Cardizem and his chest pain subsided. He was admitted for observation. CT angiogram showed a large thoracic aortic aneurysm of 9 cm that contained an aortic endograft, which showed a large distal endoleak. The prior size of the aneurysm was 8 cm. The rest of the history is hard to obtain, as patient has dementia and cannot answer any history questions. PAST MEDICAL HISTORY: He has a history of hypertension. PHYSICAL EXAMINATION: GENERAL: Demented 87-year-old, in no distress. HEENT: Negative. CHEST: Clear. Palpation of the chest showed no pain in either left or right chest. No rib pain. ABDOMEN: Soft. EXTREMITIES: Show 2+ femoral pulses. LABORATORY DATA: Creatinine of 1.5. The patient's son was eventually contacted and admitted that the aortic endograft was inserted in [facility]. IMPRESSION: Thoracic aortic endograft with distal type-1 endoleak on expansion. The painful impending rupture of the thoracic aorta is usually left subcostal; however, patient's pain did subside with control of the heart rate. But the acute expansion of the thoracic aneurysm should also be explained and addressed. Patient was discussed with Dr. Buenrostro, and suggestion of transferring him to Thoracic Service at [facility] was made, and Dr. Buenrostro concurred. Jaky Nugent MD
--- NOTE | 2017-12-17 14:18 | DS ---
REASON FOR ADMISSION: This is an 87-year-old male with history of multiple medical problems who was admitted for chest pain. COURSE OF HOSPITALIZATION: Patient was admitted to telemetry floor and he was found to have atrial fibrillation, rate was controlled with Cardizem. Patient had a Cardiology consult done by Dr. Rubin. Patient had a CT angiogram of the chest done that showed an endograft in the descending thoracic aorta with increase in size from 8 to 9 cm and appreciated [address] Yo, who is a cardiothoracic surgeon in [facility], was contacted and accepted the patient to be transferred to [facility]. Discussed patient's condition with his son and daughter and patient was transferred in a stable condition for further management. FINAL DIAGNOSES: 1. Chest pain, myocardial infarction ruled out. 2. Paroxysmal atrial fibrillation. 3. Hypertension. 4. Smoker. 5. Chronic obstructive pulmonary disease. 6. Endoleak of descending thoracic aorta endograft. Jeanne Buenrostro MD
== END 2017-12-16 14:24 | disposition short-term general hospital (02) | DRG 300 ==
LOC: C.ER 15:40 → C.9E 19:27 → C.6T 20:24 → OBSVTOIN 12-14 16:17
PROVIDERS: ADMIT Internal Medicine; ATTEND Internal Medicine
DX: I71.2 Thoracic aortic aneurysm, without rupture (principal); T85.638A Leakage of other specified internal prosthetic devices, implants and grafts, initial encounter; I48.0 Paroxysmal atrial fibrillation; G30.9 Alzheimer's disease, unspecified; F02.80 Dementia in other diseases classified elsewhere, unspecified severity, without behavioral disturbance, psychotic disturbance, mood disturbance, and anxiety; J44.9 Chronic obstructive pulmonary disease, unspecified; I10 Essential (primary) hypertension; F17.210 Nicotine dependence, cigarettes, uncomplicated; M47.9 Spondylosis, unspecified; I25.10 Atherosclerotic heart disease of native coronary artery without angina pectoris; E87.6 Hypokalemia; Y83.2 Surgical operation with anastomosis, bypass or graft as the cause of abnormal reaction of the patient, or of later complication, without mention of misadventure at the time of the procedure; Z95.5 Presence of coronary angioplasty implant and graft; Z90.49 Acquired absence of other specified parts of digestive tract; Z85.46 Personal history of malignant neoplasm of prostate